=== PATIENT | male | born 1935 | race Caucasian/White ===

== ENCOUNTER 2020-01-20 10:45 | Inpatient (IN) | payer MEDICARE, OTHER ==
[2020-01-20 11:42] LABS: #Basophils 0.1 thou/uL (0.0-0.2); #Lymphocytes 1.2 thou/uL (1.20-3.40); #Monocytes 0.9 thou/uL (0.11-0.59); #Neutrophils 7.6 thou/uL (1.40-6.50); %Basophils 0.5 % (0.0-1.0); %Eosinophils 0.3 % (0.0-10.0); %Lymphocytes 12.4 % (21.0-51.0); %Neutrophils 77.8 % (42.0-75.0); Hemoglobin 7.4 g/dL (14.0-18.0); Mean Corpuscular HGB CONC 33.2 g/dL (32.0-36.0); Mean Corpuscular Hemoglobin 33.8 pg (27.0-31.0); Mean Platelet Volume 8.8 fL (7.4-10.4); Platelet Count 147 thou/uL (130-400); RBC Distribution Width 12.4 % (11.5-14.5); Red Blood Cell (RBC) Count 2.18 mill/uL (4.70-6.10); White Blood Cell (WBC) Count 9.7 thou/uL (4.8-10.8)
[2020-01-20 11:59] LABS: ALT (SGPT) 9 U/L (8-55); AST (SGOT) 13 U/L (5-34); Albumin 3.9 g/dL (3.4-4.8); Alkaline Phosphatase 100 U/L (40-110); Anion Gap 13 mmol/L (10-20); BUN (Urea Nitrogen) 32 mg/dL (8.4-25.7); Bilirubin, Total 0.6 mg/dL (0.2-1.2); Calc. Creatinine Clearance 0 mL/min (70-130); Calcium 9.3 mg/dL (7.8-10.44); Carbon Dioxide 33 mmol/L (23-31); Chloride 96 mmol/L (98-107); Estimated GFR-MDRD 11; Globulin 2.6 g/dL (2.4-3.5); Glucose 180 mg/dL (83-110); Potassium 4.1 mmol/L (3.5-5.1); Protein, Total 6.5 g/dL (5.8-8.1); Sodium 138 mmol/L (136-145)
[2020-01-20 12:17] LABS: CKMB 1.2 ng/mL (0-6.6)
[2020-01-20] MEDS ORDERED: Iopamidol-370 76% 500 ML 1 ML ONE (12:20)
--- NOTE | 2020-01-20 12:21 | RAD ---
RADIOGRAPH CHEST 1 VIEW: DATE: 01/20/2020 HISTORY: 85-year-old male with generalized weakness COMPARISON: None FINDINGS: The thoracic aorta is tortuous and ectatic. There is no evidence of pulmonary edema, or pneumothorax. There is dense opacification of right lower lung zone, and partial opacification of right midlung zone. Visualized portions of left lung show no gross consolidation IMPRESSION: 1) opacification of lower third to half of right lung colbert. 2) ectasia of thoracic aorta.
[2020-01-20 12:39] LABS: Bilirubin Negative (Negative); Blood, Urine 3+ (Negative); Clarity Turbid (Clear); Glucose, Urine (Dipstick) Normal (Negative); Ketone, Urine Negative (Negative); Leukocyte Negative Leu/uL (Negative); Nitrite Negative (Negative); Protein, Urine (Dipstick) 300 mg/dL (Neg-Trace); RBC/HPF Greater than 50 HPF (0-3); Specific Gravity, Urine 1.007 (1.002-1.036); Squamous Epithelial None Seen HPF (0-3); Urobilinogen Normal mg/dL (Less than 2)
[2020-01-20 12:40] LABS: Bacteria/HPF 1+ HPF (None Seen)
--- NOTE | 2020-01-20 12:46 | CT ---
EXAM: Abdomen and pelvic CT scan with contrast: HISTORY: Diffuse abdominal pain and cramping, dizziness and weakness COMPARISON: None FINDINGS: Lungs:Left pleural effusion, [id number]. Bilateral mostly linear parenchymal changes in the mid and lower lung zones. Trace pericardial fluid. Liver: Unremarkable. Gallbladder:Unremarkable. Common bile duct:Normal Pancreas:Unremarkable Spleen:Unremarkable. Adrenal glands:Unremarkable. Kidneys:No evidence for right nephrectomy with evidence for probable fat necrosis within the right re nal fossa region. Very markedly abnormal left kidney with what appears to be a very small kidney with numerous small cy sts without hydronephrosis. There is a very large abnormal focus of hemorrhage around the kidney evidence for extensive subcapsular and pericapsular hematoma as well as hemorrhage extending into the surrounding pararenal space and retroperitoneum as well as some minimal free intraperitoneal fluid including around the edge of the liver. This is evidence for very extensive acute hemorrhage. No evidence for bowel obstruction. Aorta:No evidence for aneurysm. Spine:No significant acute process. No CT evidence for acute appendicitis. The urinary bladder is unremarkable. Reproductive system:Unremarkable as visualized. Hernias:Bilateral inguinal and umbilical fat-containing hernias. Artifact from total right hip replacement lowers sensitivity for evaluation in the pelvis. No abscess, adenopathy, or abnormal fluid collection within the abdomen or pelvis. IMPRESSION: Very extensive acute left renal hemorrhage with a very large subcapsular/pericapsular hematoma extens kimberly acute appearing hemorrhage extending into the pararenal space and surrounding retroperitoneum with some free fluid. Status post right nephrectomy. Small left pleural effusion and patchy bilateral linear parenchymal changes. Findings were discussed with Dr. Harris at 12:50 PM CODE CR
[2020-01-20 13:28] LABS: INR-International Normal Ratio 1.2; PTT 31.2 sec (22.9-36.1); Prothrombin Time 15.4 sec (12.0-14.7)
[2020-01-20] MEDS ORDERED: Tranexamic Acid 1,000 MG in Sodium Chloride 0.9% 100 ML IVPB SCH (14:00)
[2020-01-20] MEDS ORDERED: Tranexamic Acid 1,000 MG in Sodium Chloride 0.9% 250 ML 250 ML IVPB SCH (14:00)
[2020-01-20] MEDS ORDERED: HumaLOG 300 UNITS/3 ML VIAL SC PRN (14:56)
[2020-01-20] MEDS ORDERED: Dextrose 5% in Water 1,000 ML IV PRN (15:00)
[2020-01-20] MEDS ORDERED: Dextrose 50% Abboject 50 ML SYRINGE SLOW IVP PRN (15:00)
[2020-01-20] MEDS ORDERED: hydrALAZINE 20 MG/ML VIAL SLOW IVP PRN (15:01)
[2020-01-20] MEDS ORDERED: Metoclopramide HCl 10 MG/2 ML VIAL IVP PRN (15:03)
[2020-01-20 15:38] LABS: Hemoglobin 8.2 g/dL (14.0-18.0)
--- NOTE | 2020-01-20 15:49 | HP ---
CHIEF COMPLAINT: Weakness, dizziness. HISTORY OF PRESENT ILLNESS: This is an 85-year-old male with history of end- stage renal disease, on hemodialysis; hypertension; hypothyroid; dyslipidemia; who presents to the emergency room with the complaint of generalized weakness, dizziness, and pain in his abdomen. The patient reports the onset last night, no provoking or relieving factors, associated with some nausea. He states he feels like there was a band around his abdomen, worse on the left side in the left flank and worse with movement. It is improved with rest. The pain rated 5/10 in intensity, no radiation outside of the abdomen/back. He denies any prior history. When trying to walk, the patient does complain of dizziness. Due to the persistence of symptoms, the patient presented to the emergency room. The patient denies any fevers or chills, denies any vomiting, coughing. He also denies any change in urine and produces about a quart of urine per day. He reports that recently his blood pressure medications were increased by his clinical courier because his blood pressures have been running in the 160s. No other recent medication changes. In the ER pt was diagnosed with renal and subcapsular hemorrhage. 2 units prbc transfusion initiated and tranexamic acid infusion. Airframe And Powerplant Technician (Dr. Kang), Urologist (Dr. Coppola) and Hospitalist called for care. PAST MEDICAL HISTORY: 1. End-stage renal disease, on hemodialysis. 2. Hypertension. 3. Dyslipidemia. 4. Hypothyroidism. 5. Diabetes mellitus. 6. Gout. 7. Neuropathy. 8. Chronic leg pain PAST SURGICAL HISTORY: 1. Right nephrectomy. 2. Inguinal hernia repair. 3. Hiatal hernia repair. SOCIAL HISTORY: The patient is . His is his surrogate decision maker. He is a full code. No alcohol. FAMILY HISTORY: Significant for mother who had multiple myeloma and father who had Simi granulomatosis. MEDICATIONS: Reconciled with the list provided by the patient. 1. Allopurinol 100 mg daily. 2. Amlodipine 10 mg daily. 3. Aspirin 81 mg daily. 4. Vitamin B complex daily. 5. Docusate sodium 100 mg two tablets twice a day. 6. Glipizide 5 mg one-half tablet twice a day with meals. 7. Hydralazine 50 mg t.i.d. 8. Hydroxyzine 10 mg b.i.d. 9. Levothyroxine 50 mcg daily. 10. Losartan 100 mg daily. 11. Meloxicam 15 mg daily. 12. Pregabalin 75 mg daily. 13. vitamin daily. 14. Simvastatin 20 mg at bedtime. 15. Velphoro 500 mg one tablet 3 times a day with meals. 16. Vitamin C 500 mg daily. ALLERGIES: TO JUAN ANTONIO INHIBITORS. REVIEW OF SYSTEMS: Positive for nausea. Negative for fevers, chills, cough, change in urine. All remaining review of systems is reviewed and negative. PHYSICAL EXAMINATION: VITAL SIGNS: Blood pressure 109/60, pulse 64, respirations 18, sat 95% on room air, and temperature 99.2. GENERAL: Awake, alert, responsive, in no apparent distress. Able to speak in full sentences. HEENT: No scleral icterus. Oral mucosa is pink and moist. NECK: Supple, nontender. LYMPHATICS: No palpable cervical or supraclavicular lymphadenopathy. LUNGS: Decreased breath sounds on the right side. No audible wheezing, rhonchi, or rales. HEART: Normal S1 and S2. Regular rate and rhythm. No significant murmurs. ABDOMEN: Soft. Present bowel sounds. No tenderness to palpation anteriorly. No rebound or guarding. EXTREMITIES: No clubbing, cyanosis, or edema. VASCULAR: 2+ dorsalis pedis pulses. SKIN: No visible rashes. Pale appearing. PSYCHIATRIC: Appears euthymic. NEUROLOGIC: No focal deficits. LABORATORY DATA: Personally reviewed. CBC; 9.7, 7.4, 22.3, 147. INR 1.2. Chemistry; 138, 4.1, 96, 33, 32, 5.23, 180. T-bilirubin 0.6, AST 13, ALT 9, alkaline phosphatase 100, total protein 6.5, albumin 3.9. Troponin 0.029. Lipase 81. Urine; present protein, 3+ blood, greater than 50 red blood cells, 7 to 10 white blood cells. Fecal occult is positive. EKG is personally reviewed, sinus rhythm, normal axis, prolonged UT interval of 330, QT corrected of 460, no ST changes. Chest x-ray is personally reviewed, opacification on the right side, no prior study to compare to, and ectasia of the thoracic aorta. CT abdomen and pelvis personally reviewed. Extensive acute left renal hemorrhage with a very large subcapsular, pericapsular hematoma, extensive acute appearing hemorrhage extending into the pararenal space and surrounding retroperitoneum and free fluid. Small left pleural effusion and patchy linear parenchymal changes. IMPRESSION: 1. Hemorrhage within and around the left kidney, described as extensive on imaging in a patient who is on daily aspirin as well as NSAID. 2. Anemia, likely acute on chronic; however, no prior hemoglobin for comparison. 3. Abnormal chest xray (right sided opacification) of unknown significance. The patient is asymptomatic and not requiring oxygen. 3. End-stage renal disease, on hemodialysis. 4. History of hypertension. 5. Hypothyroidism. 6. Gout. 7. Dyslipidemia. 8. Diabetes mellitus type 2. 9. Mildly prolonged QT interval. PLAN: 1. Admission to the ICU with at least 2 midnight anticipated stay. 2. Consultation with Critical Care, Nephrology, Urology. 3. Nephrology, Dr. Kang, to arrange hemodialysis while here. 4. Urology to evaluate, recommend monitoring. 5. 2 units have been ordered for the patient. Given concern for extensive bleeding, we will monitor with every 4-hour hemoglobin and hematocrit. The patient has been started on tranexamic acid IV. 6. Holding all of his home medications, n.p.o. status. 7. Uncertain significance of abnormal chest xray - monitor for oxygen requirement or change in respiratory status. 8. Hydralazine p.r.n. for significantly elevated blood pressures. 9. Holding on IV fluids given that the patient will receive fluid through transfusion, and he is a dialysis patient. 10. Metoclopramide IV p.r.n. for nausea. 11. Monitoring his blood sugars and as needed insulin. 12. DVT prophylaxis with pneumatic compression devices. 13. GI prophylaxis. We will hold on this for now. Add as needed. 14. Code status is full. Surrogate decision maker is the patient's . Reviewed the plan of care with the patient and his . No questions or further needs at the end of evaluation. The patient is at high risk given age, comorbidities, and current presentation. Job ID: [id number] [facility]
[2020-01-20 17:26] LABS: SARS-CoV-2 NAA Rapid Test Not Detected (NotDetected)
[2020-01-20 19:23] LABS: Hemoglobin 9.6 g/dL (14.0-18.0)
--- NOTE | 2020-01-20 19:28 | CON ---
DATE OF CONSULTATION: 01/20/20 HISTORY OF PRESENT ILLNESS: Mr. Bonilla is an 85-year-old white male with ESRD - maintenance hemodialysis and was admitted due to abdominal pain with associated weakness and dizziness. A CT scan of the abdomen was done, which showed findings of an extensive acute left renal hemorrhage with a large subcapsular/pericapsular hematoma extensive in nature extending to the pararenal space. Of note, the patient was found to be status post nephrectomy. REVIEW OF SYSTEMS: Positive for dizziness. Positive for abdominal pain. No nausea. No vomiting. No syncopal episode. No fever or chills. No hematochezia. No melena. No hematemesis. No gross hematuria. No dysuria. No urinary frequency. No fever or chills. No sore throat. No back pain. No joint pains. HOME MEDICATIONS: Includes; 1. Allopurinol 100 mg once a day. 2. Amlodipine 10 mg daily. 3. Aspirin 81 mg tablet daily. 4. Vitamin B complex daily. 5. Colace 100 mg b.i.d. 6. Glipizide 5 mg one-half tablet twice a day. 7. Hydralazine 50 mg t.i.d. 8. Hydroxyzine 10 mg b.i.d. 9. Levothyroxine 50 mcg daily. 10. Losartan 100 mg daily. 11. Meloxicam 15 mg once a day. 12. Lyrica 75 mg once a day. 13. vitamin daily. 14. Simvastatin 20 mg at bedtime. 15. Velphoro 500 mg t.i.d. with meals. 16. Vitamin C 500 mg once a day. PAST MEDICAL HISTORY: 1. ESRD - on maintenance hemodialysis. 2. Longstanding hypertension. 3. Type 2 diabetes mellitus. 4. Hypothyroidism. 5. Chronic pruritus. 6. DJD. 7. Neuropathy. 8. Hyperlipidemia. 9. Hyperphosphatemia. 10. Hypothyroidism. 11. Gout. PAST SURGICAL HISTORY: Status post right nephrectomy for renal cancer, status post inguinal hernia repair, status post hiatal hernia repair, status post cuffed dialysis catheter placement, status post AV fistula, and status post PD catheter placement with subsequent removal. SOCIAL HISTORY: The patient lives in [facility]. . Sedentary lifestyle. Currently, no smoking or alcohol intake. Status post blood transfusion. No IV drug abuse. FAMILY HISTORY: No family history of ESRD. ALLERGIES: JUAN ANTONIO INHIBITORS. TRAUMA: None. IMMUNIZATIONS: Up-to-date. HOSPITALIZATIONS: Please see past medical history. PHYSICAL EXAMINATION: VITAL SIGNS: Blood pressure is noted at 134/89 and heart rate 70. GENERAL: Awake, alert, comfortable, not in overt distress. SKIN: Adequate turgor. HEENT: Slightly pale conjunctivae. Anicteric sclerae. NECK: No neck mass. No carotid bruits. No JVD. CHEST: No deformities. LUNGS: Clear breath sounds. No wheezing. No crackles. HEART: Normal sinus rhythm. No murmur. No gallops. No rubs. ABDOMEN: Globular, soft, and nontender. No masses. EXTREMITIES: No edema. No deformities. NEUROLOGIC: Moving all extremities. No tremors. No asterixis. No ataxia. LABORATORY DATA: Laboratories of January 20, 2020, white count 9.7 and hemoglobin 7.4. Sodium 138, potassium 4.1, chloride 96, carbon dioxide 33, BUN 32, creatinine 5.23, glucose 180, calcium 9.3, AST 13, ALT 9, albumin 3.9, and lipase 81. CT scan of the abdomen and pelvis showed left kidney shows extensive acute left renal hemorrhage with large subcapsular empiric capsular hematoma. January 20, 2020, chest x-ray shows opacification of the lower third to half of the right lung colbert, ectasia of the thoracic aorta. ASSESSMENT AND PLAN: 1. Left renal hemorrhage - Urology consult has been done for further evaluation. 2. End-stage renal disease, stable. We will continue current 3 times a week hemodialysis. He is scheduled for hemodialysis tomorrow. Due to the recent left renal hemorrhage, no heparin will be used with the current dialysis. 3. Left opacification of the lower third and half of the right lung colbert - the patient is clinically asymptomatic. He may eventually need a CAT scan of the chest. 4. Anemia, p.r.n. blood transfusion. Resume Epogen 7500 units subcu every week. Job ID: [id number] [facility]
[2020-01-20] MEDS: EPOETIN ALFA-EPBX (ESRD) 4,000 UNIT/ML VIAL SC SCH (21:14)
[2020-01-20 23:05] LABS: Hemoglobin 8.9 g/dL (14.0-18.0)
--- NOTE | 2020-01-21 00:05 | CON ---
DATE OF CONSULTATION: 01/20/2020 REASON FOR CONSULTATION: 1. Solitary left kidney with perinephric hemorrhage. 2. History of left-sided renal cancer, status post radical nephrectomy at [facility] about 2-1/2 years ago. 3. End-stage renal disease, on hemodialysis. HISTORY OF PRESENT ILLNESS: Mr. Siva Bonilla is a very pleasant 85-year-old white male patient formally of [facility] and recently of Dr. Chris Funes, who presents today with a complaint of left-sided flank pain with onset of about 6 p.m. on 01/19/2020. This progressively increased in pain level over time. Mr. Bonilla is on hemodialysis. Dr. Kang is his timber sprinkler. The patient has had a number of chronic pain issues associated with his right leg and has seen a number of care providers with regard to that. He has been taking meloxicam at home for his pain symptoms. The patient also has diabetes and hypertension as potential contributors to his bleed. The patient reports that he has not seen gross blood per urine. He does report that he makes about 5-6 voids per day with his left functioning kidney. The patient's only complaint at this time is of pain. PAST MEDICAL HISTORY: 1. End-stage renal disease, currently on hemodialysis with Dr. Kang. 2. Hypertension. 3. Dyslipidemia. 4. Hypothyroidism. 5. Diabetes mellitus. 6. Gout. 7. Neuropathy. 8. History of malignancy of the right kidney, status post right radical nephrectomy at [facility] approximately 2-1/2 years ago. PAST SURGICAL HISTORY: 1. Right radical nephrectomy. 2. History of inguinal hernia repair. 3. Hiatal hernia repair. SOCIAL HISTORY: The patient is and his acts as partial historian for him. The patient is full code. No reports of smoking or alcohol use. No other substance abuse issues, although the patient has been cared for by chronic pain specialist in the past. FAMILY MEDICAL HISTORY: Notable for multiple myeloma and Simi granulomatosis in the patient's father. OUTPATIENT MEDICATION LIST: Includes the following, 1. Allopurinol 100 mg p.o. daily. 2. Amlodipine 10 mg per day. 3. Aspirin 81 mg per day. 4. Vitamin B complex daily. 5. Docusate sodium 100 mg twice daily. 6. Glipizide 5 mg 1/2 tablet twice daily with meals. 7. Hydralazine 50 mg t.i.d. 8. Hydroxyzine 10 mg p.o. b.i.d. 9. Levothyroxine 50 mcg p.o. daily. 10. Losartan 100 mg per day. 11. Meloxicam 15 mg daily. 12. Pregabalin 75 mg daily. 13. vitamins daily. 14. Simvastatin 20 mg at bedtime. 15. Velphoro 500 mg one tablet three times daily with meals. 16. Vitamin C 500 mg daily. ALLERGIES: REPORTEDLY TO JUAN ANTONIO INHIBITORS. REVIEW OF SYSTEMS: CONSTITUTIONAL: No complaints of fever or chills. NEUROLOGIC: Positive for left-sided flank pain. GASTROINTESTINAL: The patient has constipation, for which he takes docusate sodium on an ordinary basis and reports some nausea symptoms with his current presentation. GENITOURINARY: The patient reports voiding 5-6 voids per day. Does not report significant obstructive voiding symptoms. Denies gross hematuria. NEUROLOGIC: The patient reports chronic right-sided flank pain symptoms. Review of systems is otherwise negative x12 systems. PHYSICAL EXAMINATION: VITAL SIGNS: Blood pressure is 144/80, pulse is 64, respiratory rate is about 20 to my exam. The patient is currently afebrile. GENERAL: This is an awake, alert white male, in no apparent distress. He is a good historian. Appears to be of above-average intelligence. HEAD, EYES, EARS, NOSE, AND THROAT: Extraocular movements are intact. Sclerae are anicteric. Oropharynx is not examined. NECK: Supple. No supraclavicular or cervical lymphadenopathy. LUNGS: Clear bilaterally. There is no wheezing. CARDIAC: Regular rate and rhythm. ABDOMEN: Soft, obese, and nontender. There is no flank tenderness on either side to gross exam. GENITOURINARY: Phallus is uncircumcised. Retraction of foreskin finds no lesions beneath the foreskin. He is not catheterized at the present time. Testes are benign. Digital rectal examination is not performed. EXTREMITIES: Appear within normal limits. There is no clubbing, cyanosis, or edema. The patient's right upper extremity has an AV fistula site, which is patent and there is palpable thrill present. LABORATORY STUDIES: The patient's white count is 9.7, hemoglobin is 7.4 with hematocrit of 22.3, there is 77.8% neutrophils. Serum chemistries show sodium 138, potassium 4.1, chloride 96, carbon dioxide 33, blood urea nitrogen of 32, creatinine of 5.32, glucose is 180. Lipase is elevated at 81. Troponin is 0.029. RADIOLOGIC STUDIES: CT scan of the abdomen and pelvis was obtained on 01/20/2020. Please see the dictated report to my review of this study. The patient has no evidence of a right kidney status post right radical nephrectomy. The patient's renal parenchyma is compressed by a subcapsular hematoma. There also appears to be a fair amount of stranding outside of the kidney suggesting there is possibly some extravasation. 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 The patient does not have any specific recognition of any type of diagnosis involving the left kidney. The patient has a prosthetic right hip, source of his pain. ASSESSMENT: This is a subcapsular hemorrhage in the patient's left kidney, possibly with some extravasation. The patient is ordinarily taking daily aspirin, NSAIDs (meloxicam) and is on hemodialysis. He also suffers from hypertension, diabetes, and elevated cholesterol, which may contribute to a spontaneous hemorrhage. The patient does have a history of previous malignancy in his right kidney and did undergo nephrectomy for that. It is unclear if he has had previously imaged cysts. The patient is ordinarily followed by Dr. Funes and previously was followed by [facility] here in [facility] prior to the longterm. PLAN: The patient will be best served by observation as an initial protocol with pain medications. I would strictly recommend avoidance of any anticoagulants including modification of the patient's current hemodialysis regimen, avoidance of NSAIDs of any sort and any other agents, which may interfere with normal clotting. The patient will be suitable for bedrest for a few days. Pain with this type of problem is ordinarily managed with oral narcotics such as Wilcox. Usually a few pills per day are necessary at the beginning. Usually spontaneous resolution of the subcapsular bleed is evident by about 3 months' time. I discussed with the patient if we operated on him acutely, he most likely will lose any of the kidney function that he has on that side; although he makes low quality urine, he does make 5-6 voids per day and this would result in a significant modification of his lifestyle. At the present time, I do not recommend acute interventions for this patient. I believe interval CT scan imaging may be of use. At first, I probably would recommend noncontrast CT scan be performed again on Monday to follow the size and total amount of the bleed. If there is question or concerns regarding ongoing bleeding, a contrast study would be required. At the present time, I believe it could be managed conservatively. I will discuss the patient's findings with his primary urology attending, Dr. Funes. Over 70 minutes of initial consultation, evaluation, assessment time was spent in the assessment of this patient today. Job ID: [id number]
[2020-01-21 04:04] LABS: Anion Gap 12 mmol/L (10-20); BUN (Urea Nitrogen) 42 mg/dL (8.4-25.7); Calc. Creatinine Clearance 12 mL/min (70-130); Calcium 8.9 mg/dL (7.8-10.44); Carbon Dioxide 31 mmol/L (23-31); Chloride 99 mmol/L (98-107); Estimated GFR-MDRD 9; Glucose 105 mg/dL (83-110); Sodium 138 mmol/L (136-145)
[2020-01-21 06:53] LABS: #Eosinphils 0.1 thou/uL (0.0-0.7); #Lymphocytes 1.4 thou/uL (1.20-3.40); #Monocytes 0.8 thou/uL (0.11-0.59); #Neutrophils 4.7 thou/uL (1.40-6.50); %Basophils 0.5 % (0.0-1.0); %Lymphocytes 19.9 % (21.0-51.0); %Monocytes 11.8 % (0.0-10.0); %Neutrophils 65.8 % (42.0-75.0); Hemoglobin 8.1 g/dL (14.0-18.0); Mean Corpuscular HGB CONC 34.9 g/dL (32.0-36.0); Mean Corpuscular Hemoglobin 33.5 pg (27.0-31.0); Mean Corpuscular Volume 96.2 fL (78.0-98.0); Mean Platelet Volume 9.1 fL (7.4-10.4); Platelet Count 116 thou/uL (130-400); Platelet Morphology Comment Appears Decreased; Red Blood Cell (RBC) Count 2.42 mill/uL (4.70-6.10); White Blood Cell (WBC) Count 7.1 thou/uL (4.8-10.8)
--- NOTE | 2020-01-21 08:41 | CON ---
DATE OF CONSULTATION: 01/21/2020 REASON FOR CONSULTATION: ICU stay. This encompassed 50 minutes of time, of that time, greater than 50% spent with the patient and/or the patient's unit in the hospital. HISTORY OF THE PRESENT ILLNESS: This is an 85-year-old male who has been found to have a spontaneous pericapsular hemorrhage around the left kidney. He presented with pain. There was no fall or inciting event has been known. He has received some blood. No surgery is planned at the current time. He has no acute complaints at this time. He is on no vasopressors and has had no hypotension in the last several hours. PAST MEDICAL HISTORY: 1. End-stage renal disease, requiring hemodialysis. 2. Right nephrectomy for some type of kidney lesion, hypertension, hyperlipidemia, hypothyroidism, diabetes mellitus, gout, neuropathy, chronic leg pain, inguinal hernia repair, and hiatal hernia repair. MEDICATIONS: Prior to admission: 1. Allopurinol. 2. Amlodipine. 3. Aspirin. 4. Vitamin B complex. 5. Docusate. 6. Glipizide. 7. Hydralazine. 8. Hydroxyzine. 9. Levothyroxine. 10. Losartan. 11. Meloxicam. 12. Pregabalin. 13. vitamin. 14. Simvastatin. 15. Vitamin C. SOCIAL HISTORY: He is . Does not smoke. Does not consume alcohol. FAMILY MEDICAL HISTORY: Remarkable for mother had multiple myeloma and father had Simi's. ALLERGIES: JUAN ANTONIO INHIBITORS. REVIEW OF SYSTEMS: Twelve-point review of systems is otherwise negative. PHYSICAL EXAMINATION: VITAL SIGNS: Pulse 62, blood pressure 138/57, O2 saturation 93%, respiratory rate 19, and temperature 97.8. GENERAL: He is awake, alert, in no distress. HEENT: Unremarkable. NECK: No adenopathy, JVD, or bruits. LUNGS: Clear without wheezing or rhonchi. CARDIOVASCULAR: S1 and S2. Regular without audible murmur. ABDOMEN: Soft. There is some bulging in the left flank. Some tenderness when palpating deeply in left flank. EXTREMITIES: No clubbing, cyanosis, or edema. LABORATORY DATA: White blood cell count 7.1, hemoglobin 8.1, hematocrit 23.3, and platelet count 116. Sodium 138, potassium 4, chloride 99, CO2 of 31, BUN 42, creatinine 6.2, and glucose 105. ASSESSMENT: 1. Capsular hematoma, left kidney. 2. End-stage renal disease, requiring dialysis. 3. Diabetes mellitus. 4. Anemia due to blood loss. PLAN: The patient's blood pressure and hemoglobin are stable. In my opinion, we transfer to the floor. He can go ahead and start a diet. Job ID: [id number]
--- NOTE | 2020-01-21 08:49 | PRG ---
DATE OF SERVICE: 01/21/2020 SUBJECTIVE: Mr. Bonilla is an 85-year-old white male with known history of ESRD-maintenance hemodialysis, status post right nephrectomy and admitted for left renal hemorrhage. He has been evaluated by Urology and the feeling is that he can be managed conservatively without any surgical intervention. He is receiving p.r.n. blood transfusion. We are following him up for his maintenance hemodialysis. No new complaints today. He tells me he is feeling better this morning. OBJECTIVE: VITAL SIGNS: Blood pressure 128/62, heart rate 62, respiratory rate 19, and O2 saturation 95%. GENERAL: The patient is awake, comfortable, not in overt distress. SKIN: Adequate turgor. HEENT: He has a slightly pale conjunctivae. Anicteric sclerae. NECK: No neck mass. No carotid bruits. No JVD. CHEST: No deformities. LUNGS: Clear breath sounds. No wheezing. No crackles. HEART: Normal sinus rhythm. No murmurs. No gallops. No rubs. ABDOMEN: Globular, soft, and nontender. No masses. EXTREMITIES: No edema. No deformities. MEDICATIONS: Medications of January 21, 2020, were reviewed. LABORATORY DATA: Laboratories of January 21, 2020; white count 7.1, hemoglobin 8.1, sodium 138, potassium 4, chloride 99, carbon dioxide 31, BUN 42, creatinine 6.22, glucose 105, and calcium 8.9. ASSESSMENT AND PLAN: 1. End-stage renal disease due to the recent renal bleed. The patient will be undergoing hemodialysis without any heparin. P.r.n. blood transfusion. Continue current Epogen regimen with this patient-we have ordered 7500 units subcu q.7 days. 2. Left renal hemorrhage-Urology is following. Initial recommendation is observation. Case discussed with Dr. Funes. If the bleeding is persistent, he may be a candidate for a renal infarction to minimize further invasive procedure with this patient. The patient is clinically asymptomatic this morning. Job ID: [id number]
[2020-01-21 09:49] LABS: Hemoglobin 8.1 g/dL (14.0-18.0)
--- NOTE | 2020-01-21 12:12 | CON ---
DATE OF CONSULTATION: HISTORY OF PRESENT ILLNESS: This is an 85-year-old white male, who is a former patient of one of the Dr. Sheth's. I think I have been seeing him since 2017. I have to look at my records when I get to my office later today. He has a history of having a renal cell carcinoma, I do not know anything about it stage. 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 He had a radical nephrectomy done, I think, at [facility]. He started having some abdominal pain, worse on the left side on Monday evening, became worse, yesterday it became worsened. I was in the OR, they called my office, I could not get him into the office because me in the OR. They also called his family doctor who was out of town, so he went to the ER. In the ER, he was found to have a low hematocrit. CAT scan was done that was done I think with contrast. It shows a small left kidney with some renal cysts on it and it shows a [id number] left subcapsular hematoma with some stranding of the perirenal space. I do not see any stones or obstruction. The nurses report a little bit of blood-tinged urine today, but the patient does not report any blood-tinged urine. He received 2 units of blood yesterday. The last was around 5 in the afternoon and his hemoglobin posttransfusion was 9.6 and then 8.9, and then about 5 or 6 hours ago, 8.1. He is currently going to have another one drawn. He is supposed to dialyze today. He has been end-stage renal disease, on hemodialysis for, I guess, 2 [address] Kang sees him. He is going to dialyze him without heparin. He has been taking some NSAIDs and he has also been taking some aspirin. He actually feels pretty well in terms of the pain right now. He has taken some liquids. He has not eaten any solid food yet. PAST MEDICAL HISTORY: He has had a right radical nephrectomy. He has had hernia repairs. He has end-stage renal disease, hypertension, hyperlipidemia, diabetes, and gout. He also has some chronic pain issues. MEDICATIONS: Well documented. ALLERGIES: HE HAS ALLERGIES TO JUAN [employer]TON[employer] INHIBITORS. LABORATORY DATA: His creatinine is elevated as expected with the end-stage renal. His platelet count is still over 100, white count is normal. PHYSICAL EXAMINATION: His abdomen is soft. There is some left-sided tenderness on deep palpation. The right side is nontender. There is no rebound, no guarding. He is still making urine and as mentioned, the nurse reported that the voided urine today was blood tinged. IMPRESSION: Left spontaneous renal bleed in a patient in end-stage renal disease with a small left kidney with some renal cysts on contrast study yesterday. We will check his hemoglobin level this morning. He will be dialyzed. We will keep him just on some clear liquids today and bedrest. Keep PlexiPulses on him. Avoid blood thinners, nonsteroidals, and aspirin. I think we will kind of follow the hemoglobin now and probably not redo a CAT scan unless the hemoglobin is significantly changing. We will try to get the hemoglobin done before dialysis, so if he needs more blood, he could receive it during dialysis. I have discussed this with Dr. Coppola as well as with Dr. Kang. Should he acutely rebleed, we may look at infarcting the kidneys. This would probably be easier tolerated by the patient than open nephrectomy for this. Otherwise, we will end up following this to be sure there is nothing that would suggest a renal malignancy on this side, initial scan shows really just some small renal cysts. I will follow along with you. Job ID: [id number]
--- NOTE | 2020-01-21 13:07 | PDOC.HOSPP ---
- Subjective Encounter Date: 01/21/20 Encounter Time: 11:45 Subjective: Patient up in bed no complaints. - Objective Vital Signs & Weight: Vital Signs (12 hours) Temp Pulse Ox 01/21/20 12:00 98.6 F 01/21/20 07:44 94 L 01/21/20 07:00 98.6 F 01/21/20 04:00 97.8 F Weight Weight 176 lb 9.444 oz Most Recent Monitor Data Heart Rate from ECG 59 NIBP 142/66 NIBP BP-Mean 91 Respiration from ECG 23 SpO2 94 I&O: 01/20/20 01/21/20 01/22/20 06:59 06:59 06:59 Intake Total 338 400 Output Total 0 100 Balance 338 300 Result Diagrams: 01/21/20 09:36 01/21/20 03:20 Additional Labs: Accuchecks 01/20/20 22:57 POC Glucose 113 H Hospitalist ROS - Review of Systems Cardiovascular: denies: chest pain, palpitations, orthopnea, paroxysmal noc. dyspnea, edema, light headedness, other Gastrointestinal: denies: nausea, vomiting, abdominal pain, diarrhea, constipation, melena, hematochezia, other Genitourinary: denies: dysuria, frequency, incontinence, hematuria, retention, other - Medication Medications: Active Medications Generic Name Dose Route Start Last Admin Trade Name Freq PRN Reason Stop Dose Admin Epoetin Geraldo-epbx 7,500 unit 01/20/20 16:30 01/20/20 21:14 Epoetin Geraldo-Epbx (Esrd) 4,000 Unit/Ml Vial SC 7,500 unit Q7D DEIDRE Administration - Exam Neck: negative: supple, symmetric, no JVD, no thyromegaly, no lymphadenopathy, no carotid bruit, JVD Heart: negative: RRR, no murmur, no gallops, no rubs, normal peripheral pulses, irregular, diminshed peripheral pulses, murmur present, II/IV, III/IV Respiratory: negative: CTAB, no wheezes, no rales, no ronchi, normal chest expansion, no tachypnea, normal percussion, rales, rhonchi, tachypneic, wheezes Gastrointestinal: negative: soft, non-tender, non-distended, normal bowel sounds, no palpable masses, no hepatomegaly, no splenomegaly, no bruit, no guarding, no rigidity, tender to palpation, distended, diminished bowl sounds, voluntary guarding Hosp A/P (1) Renal hemorrhage, left Code(s): N28.89 - OTHER SPECIFIED DISORDERS OF KIDNEY AND URETER Status: Acute (2) Acute blood loss anemia Code(s): D62 - ACUTE POSTHEMORRHAGIC ANEMIA Status: Acute (3) End stage renal disease on dialysis Code(s): N18.6 - END STAGE RENAL DISEASE; Z99.2 - DEPENDENCE ON RENAL DIALYSIS Status: Acute (4) Renal cell carcinoma of right kidney Code(s): C64.1 - MALIGNANT NEOPLASM OF RIGHT KIDNEY, EXCEPT RENAL PELVIS Status: Acute - Plan Status post 2 units of PRBC transfusion patient doing well. H&H stable. Patient was on meloxicam has been advised to stop taking it. Patient has some right thigh pain and has been seeing neurology as outpatient in [place]. We will start patient on couple of his blood pressure medications.
[2020-01-21 13:52] VITALS: BMI 24.6
[2020-01-21] MEDS: hydrALAZINE 25 MG TAB PO SCH ×2 (15:10→20:24)
[2020-01-21 18:58] LABS: Hemoglobin 8.4 g/dL (14.0-18.0)
[2020-01-21] MEDS: Atorvastatin Calcium 10 MG TAB PO SCH (20:24)
[2020-01-21] MEDS: hydrOXYzine 10 MG TAB PO SCH (20:27)
[2020-01-22] MEDS: Levothyroxine Sodium 50 MCG TAB PO SCH (06:28)
[2020-01-22] MEDS: Multivit, Therapeutic 1 TAB PO SCH (07:40)
[2020-01-22] MEDS: Allopurinol 100 MG TAB PO SCH (07:40)
[2020-01-22] MEDS: hydrOXYzine 10 MG TAB PO SCH ×2 (08:54→21:22)
[2020-01-22] MEDS: Stress 600 With Zinc 1 TAB PO SCH (08:54)
--- NOTE | 2020-01-22 09:41 | PRG ---
DATE OF SERVICE: 01/22/2020 SUBJECTIVE: Mr. Bonilla is an 85-year-old white male with known history of ESRD - on maintenance hemodialysis and was admitted for a left renal bleed. At that time, the patient was given 1 unit of packed RBC for his symptomatic anemia. He has also been seen by Urology. The patient had a left spontaneous renal bleed. The plan is to do a conservative management and observe the patient. As per suggestion by Urology, should he have recurrence of the renal bleed, then may need to consider infarcting this kidney rather than doing an open nephrectomy. We are following up this patient for his maintenance hemodialysis. He underwent hemodialysis yesterday without difficulty. We are currently using no heparin due to the recent renal bleed. No complaints of chest pain or shortness of breath. OBJECTIVE: VITAL SIGNS: Blood pressure is 116/52, heart rate 68, respiratory rate 18, temperature 99.5, O2 saturation 90% on room air. GENERAL: The patient is awake, alert, comfortable, not in distress. SKIN: Adequate turgor. HEENT: Slightly pale conjunctivae. Anicteric sclerae. No neck mass. No carotid bruits. No JVD. CHEST: No deformities. LUNGS: Clear breath sounds. HEART: Normal sinus rhythm. No murmurs, no gallops, no rubs. ABDOMEN: Globular, soft, nontender. No masses. EXTREMITIES: No edema. No deformities. MEDICATIONS: Of January 22, 2020, were reviewed. LABORATORY DATA: Laboratories of January 22, 2020: CBC is pending. On January 21, 2020: Hemoglobin 8.4, hematocrit 24.5. Potassium 4, BUN 42, creatinine 6.22. Glucose of January 22, 2020, was 116. ASSESSMENT AND PLAN: 1. Left renal bleed. Continue supportive care. Continue to observe. Observe for any evidence of rebleed. If there is a rebleed, possibility of infarcting the kidney remains. 2. End-stage renal disease, stable. We will continue heparin free hemodialysis with the patient. I do not see any indication for an emergent hemodialysis today. He did tolerate the dialysis yesterday. We will resume back his dialysis this coming Monday. Agree with current management. Recheck CBC and basic metabolics in a.m. Job ID: [id number]
[2020-01-22 09:56] LABS: #Eosinphils 0.1 thou/uL (0.0-0.7); #Neutrophils 4.7 thou/uL (1.40-6.50); %Basophils 0.2 % (0.0-1.0); %Eosinophils 1.2 % (0.0-10.0); %Lymphocytes 14.7 % (21.0-51.0); %Monocytes 14.7 % (0.0-10.0); %Neutrophils 69.2 % (42.0-75.0); Band 2 % (5-11); Eosinophils 3 % (0-10); Hemoglobin 7.3 g/dL (14.0-18.0); Lymphocytes 16 % (21-51); MDiff Complete? YES; Mean Corpuscular HGB CONC 34.7 g/dL (32.0-36.0); Mean Corpuscular Hemoglobin 34.5 pg (27.0-31.0); Mean Corpuscular Volume 99.5 fL (78.0-98.0); Monocytes 11 % (0-10); Neutrophil 68 % (42-75); Platelet Count 96 thou/uL (130-400); Platelet Morphology Comment Appears Decreased; Polychromasia SLIGHT = 2-3 cells (100X) (0-2/hpf); RBC Distribution Width 12.7 % (11.5-14.5); Red Blood Cell (RBC) Count 2.12 mill/uL (4.70-6.10); White Blood Cell (WBC) Count 6.9 thou/uL (4.8-10.8)
[2020-01-22] MEDS: hydrALAZINE 25 MG TAB PO SCH (12:18)
[2020-01-22] MEDS: Amlodipine 10 MG TAB PO SCH (12:19)
[2020-01-22] MEDS ORDERED: Acetaminophen/Codeine 30-300mg Tablet PO PRN (12:21)
--- NOTE | 2020-01-22 14:07 | PRG ---
DATE OF SERVICE: 01/22/2020 This patient has been moved up to the 4th floor. He is tired. He said he kind of moved up late yesterday and did not sleep that well. He is a little short of breath. O2 sats are in the low 90s range. His blood pressure is stable. His pulse is stable. He is not having any abdominal or flank pain. His hemoglobin has dropped to 7.3 this morning, it was 8.5 last night. I will ask them to recheck that. He does not seem to be symptomatic from it. I do not know what his hemoglobin normally runs. I could not find any through this facility. I will put a text to Dr. Kang to see if he knows what he generally runs with this and hematocrit during a dialysis. If his hemoglobin continues to drop, he may require transfusion. It does not appear that he is actively bleeding at least clinically, even his exam is much better. He is nontender. His abdomen is soft. There is no rebound, no guarding. It may just be that this hemoglobin is more just a reflection of blood that he has lost already. I do not know if he has taken much fluids in where he does not make a whole lot of urine, some of it may be dilutional. I think if he continues to drop, he probably would need another transfusion of a unit or 2 and then possibly look at reimaging with him with a CT scan. I will be leaving for the next few days for Thanksgiving. I checked out for urologic coverage with Dr. Lake who will be available and I asked that if he can combine to check on the patient each day. Job ID: [id number]
--- NOTE | 2020-01-22 16:25 | PDOC.HOSPP ---
- Subjective Encounter Date: 01/22/20 Encounter Time: 11:00 Subjective: pt up in chair no complains. - Objective Vital Signs & Weight: Vital Signs (12 hours) Temp Pulse Resp BP BP Pulse Ox 01/22/20 13:04 98.7 F 63 16 133/67 91 L 01/22/20 12:19 68 116/52 L 01/22/20 12:18 68 116/52 L 01/22/20 08:00 90 L 01/22/20 07:29 99.5 F 68 18 116/52 L 90 L 01/22/20 04:45 99.5 F 65 16 114/57 L 91 L Weight Admit Weight 176 lb Weight 176 lb 9.444 oz Most Recent Monitor Data Heart Rate from ECG 71 NIBP 124/86 NIBP BP-Mean 98 Respiration from ECG 23 SpO2 94 I&O: 01/21/20 01/22/20 01/23/20 06:59 06:59 06:59 Intake Total 338 750 Output Total 0 465 Balance 338 285 Result Diagrams: 01/22/20 08:36 01/21/20 03:20 Additional Labs: Accuchecks 01/22/20 01/22/20 01/22/20 16:10 12:54 10:59 POC Glucose 108 H 105 H 120 H 01/22/20 01/21/20 01/21/20 04:27 22:22 16:33 POC Glucose 116 H 120 H 85 Hospitalist ROS - Review of Systems Cardiovascular: denies: chest pain, palpitations, orthopnea, paroxysmal noc. dyspnea, edema, light headedness, other Gastrointestinal: denies: nausea, vomiting, abdominal pain, diarrhea, constipation, melena, hematochezia, other Genitourinary: denies: dysuria, frequency, incontinence, hematuria, retention, other - Medication Medications: Active Medications Generic Name Dose Route Start Last Admin Trade Name Freq PRN Reason Stop Dose Admin Allopurinol 100 mg 01/22/20 09:00 01/22/20 07:40 Allopurinol 100 Mg Tab PO 100 mg DAILY [facility] Administration Amlodipine Besylate 10 mg 01/22/20 09:00 01/22/20 12:19 Amlodipine 10 Mg Tab PO Not Given DAILY [facility] Atorvastatin Calcium 10 mg 01/21/20 21:00 01/21/20 20:24 Atorvastatin Calcium 10 Mg Tab PO 10 mg HS DEIDRE Administration Epoetin Geraldo-epbx 7,500 unit 01/20/20 16:30 01/20/20 21:14 Epoetin Geraldo-Epbx (Esrd) 4,000 Unit/Ml Vial SC 7,500 unit Q7D DEIDRE Administration Glipizide 2.5 mg 01/22/20 07:30 01/22/20 08:56 Glipizide Xl 2.5 Mg Tablet PO 2.5 mg DAILY-AC DEIDRE Administration Hydralazine HCl 50 mg 01/21/20 15:00 01/22/20 12:18 Hydralazine 25 Mg Tab PO Not Given TID DEIDRE Hydroxyzine HCl 10 mg 01/21/20 21:00 01/22/20 08:54 Hydroxyzine 10 Mg Tab PO 10 mg BID DEIDRE Administration Levothyroxine Sodium 50 mcg 01/22/20 06:00 01/22/20 06:28 Levothyroxine Sodium 50 Mcg Tab PO 50 mcg 0600 DEIDRE Administration Multivitamins 1 tab 01/22/20 09:00 01/22/20 07:40 Multivit, Therapeutic 1 Tab PO 1 tab DAILY DEIDRE Administration Multivitamins/Zinc 1 tab 01/22/20 09:00 01/22/20 08:54 Stress 600 With Zinc 1 Tab PO 1 tab DAILY DEIDRE Administration - Exam Neck: negative: supple, symmetric, no JVD, no thyromegaly, no lymphadenopathy, no carotid bruit, JVD Heart: negative: RRR, no murmur, no gallops, no rubs, normal peripheral pulses, irregular, diminshed peripheral pulses, murmur present, II/IV, III/IV Respiratory: negative: CTAB, no wheezes, no rales, no ronchi, normal chest expansion, no tachypnea, normal percussion, rales, rhonchi, tachypneic, wheezes Gastrointestinal: negative: soft, non-tender, non-distended, normal bowel sounds, no palpable masses, no hepatomegaly, no splenomegaly, no bruit, no guarding, no rigidity, tender to palpation, distended, diminished bowl sounds, voluntary guarding Hosp A/P (1) Renal hemorrhage, left Code(s): N28.89 - OTHER SPECIFIED DISORDERS OF KIDNEY AND URETER Status: Acute (2) Acute blood loss anemia Code(s): D62 - ACUTE POSTHEMORRHAGIC ANEMIA Status: Acute (3) End stage renal disease on dialysis Code(s): N18.6 - END STAGE RENAL DISEASE; Z99.2 - DEPENDENCE ON RENAL DIALYSIS Status: Acute (4) Renal cell carcinoma of right kidney Code(s): C64.1 - MALIGNANT NEOPLASM OF RIGHT KIDNEY, EXCEPT RENAL PELVIS Status: Acute - Plan Status post 2 units of PRBC transfusion patient doing well. H&H stable. Patient was on meloxicam has been advised to stop taking it. Patient has some right thigh pain and has been seeing neurology as outpatient in [place]. We will start patient on couple of his blood pressure medications. 01/21 spoke with patient's son and updated him. We will check an H&H at 6 PM if less than 7 will transfuse 1 unit of blood. We will hold on blood pressure medications for now. We will start as needed pain meds.
[2020-01-22 18:19] LABS: Hemoglobin 7.1 g/dL (14.0-18.0)
[2020-01-22] MEDS: Atorvastatin Calcium 10 MG TAB PO SCH (21:21)
[2020-01-23] MEDS: Levothyroxine Sodium 50 MCG TAB PO SCH (06:12)
[2020-01-23] MEDS: hydrOXYzine 10 MG TAB PO SCH ×2 (06:12→21:27)
[2020-01-23 06:36] LABS: Hemoglobin 7.6 g/dL (14.0-18.0)
[2020-01-23 06:38] LABS: #Lymphocytes 1.3 thou/uL (1.20-3.40); #Neutrophils 5.7 thou/uL (1.40-6.50); %Basophils 0.4 % (0.0-1.0); %Eosinophils 0.5 % (0.0-10.0); %Lymphocytes 16.1 % (21.0-51.0); %Monocytes 12.8 % (0.0-10.0); %Neutrophils 70.2 % (42.0-75.0); Hemoglobin 7.6 g/dL (14.0-18.0); Mean Corpuscular HGB CONC 33.7 g/dL (32.0-36.0); Mean Corpuscular Hemoglobin 33.1 pg (27.0-31.0); Mean Corpuscular Volume 98.1 fL (78.0-98.0); Mean Platelet Volume 8.5 fL (7.4-10.4); Platelet Count 122 thou/uL (130-400); RBC Distribution Width 12.5 % (11.5-14.5); Red Blood Cell (RBC) Count 2.28 mill/uL (4.70-6.10); White Blood Cell (WBC) Count 8.1 thou/uL (4.8-10.8)
[2020-01-23 06:57] LABS: Anion Gap 16 mmol/L (10-20); BUN (Urea Nitrogen) 45 mg/dL (8.4-25.7); Calc. Creatinine Clearance 9 mL/min (70-130); Calcium 9.6 mg/dL (7.8-10.44); Carbon Dioxide 29 mmol/L (23-31); Chloride 100 mmol/L (98-107); Estimated GFR-MDRD 7; Glucose 108 mg/dL (83-110); Potassium 4.1 mmol/L (3.5-5.1); Sodium 141 mmol/L (136-145)
--- NOTE | 2020-01-23 07:26 | PRG ---
DATE OF SERVICE: 01/23/2020 SUBJECTIVE: Mr. Bonilla is doing well. He denies any pain. No fever or chills. His hemoglobin this morning is pending. OBJECTIVE: VITAL SIGNS: Temperature is 99.1, pulse 65, respirations 18, oxygen saturation 94% on room air, blood pressure 153/57. GENERAL: He is awake and alert. No apparent distress. CARDIOVASCULAR: Regular rhythm. PULMONARY: Breathing unlabored. ABDOMEN: Soft, nontender/nondistended. EXTREMITIES: Warm and well perfused. No edema. LABORATORY DATA: Hemoglobin this morning is 7.6, which is stable and slightly up from yesterday 6:00 p.m. at 7.1. ASSESSMENT: An 85-year-old male with a spontaneous left renal bleed on end-stage renal disease and atrophic left kidney. The patient's hemoglobin is stable. There is no indication for intervention at this time. Should he have any acute rebleed, can consider angioembolization. Job ID: [id number]
[2020-01-23] MEDS: Amlodipine 10 MG TAB PO SCH (08:56)
[2020-01-23] MEDS: Stress 600 With Zinc 1 TAB PO SCH (08:56)
[2020-01-23] MEDS: Allopurinol 100 MG TAB PO SCH (08:56)
[2020-01-23] MEDS: Multivit, Therapeutic 1 TAB PO SCH (08:56)
--- NOTE | 2020-01-23 10:40 | PRG ---
DATE OF SERVICE: 01/23/2020 SUBJECTIVE: Mr. Bonilla is an 85-year-old white male with ESRD and was admitted due to left spontaneous renal bleed. He is being observed whether he will need a renal infarction with his left kidney. He tells me he is feeling better. His hemoglobin is being monitored. He denies any chest pain or shortness of breath. OBJECTIVE: VITAL SIGNS: Blood pressure is 153/66, heart rate 62, respiratory rate 18, temperature 99.1, O2 saturation 93%. GENERAL: Awake, alert, comfortable, not in distress. SKIN: Adequate turgor. HEENT: Slightly pale conjunctivae. Anicteric sclerae. NECK: No neck mass. No carotid bruits. No JVD. CHEST: No deformities. LUNGS: Clear breath sounds. HEART: Normal sinus rhythm. No murmur. No gallops. No rubs. ABDOMEN: Globular, soft, nontender. No masses. EXTREMITIES: No edema. MEDICATIONS: On January 23, 2020, were reviewed. LABORATORY DATA: On January 23, 2020; white count 8.1, hemoglobin 7.6. Sodium 141, potassium 4.1, chloride 100, carbon dioxide 29, BUN 75, creatinine 7.12, calcium 9.6. ASSESSMENT AND PLAN: 1. End-stage renal disease, stable. No indication for any dialytic intervention. Potassium is noted to be within normal. In addition, he looks euvolemic. I have scheduled him for dialysis in a.m. 2. Left renal bleed. Continue to observe. Hemoglobin noted at 7.6 today. Continue Epogen, p.r.n. blood transfusion. 3. Agree with current management. Recheck CBC, basic metabolic in a.m. Job ID: [id number]
--- NOTE | 2020-01-23 13:34 | PDOC.HOSPP ---
- Subjective Encounter Date: 01/23/20 Encounter Time: 09:45 Subjective: pt up in bed asleep but arousable. - Objective Vital Signs & Weight: Vital Signs (12 hours) Temp Pulse Resp BP BP BP BP 01/23/20 11:15 99 F 60 18 135/72 01/23/20 08:56 62 153/66 H 01/23/20 07:58 99.1 F 61 18 153/66 H 01/23/20 04:50 99.1 F 65 18 153/57 H Pulse Ox 01/23/20 11:15 94 L 01/23/20 08:56 01/23/20 07:58 93 L 01/23/20 04:50 94 L Weight Admit Weight 176 lb Weight 176 lb 9.444 oz Most Recent Monitor Data Heart Rate from ECG 71 NIBP 124/86 NIBP BP-Mean 98 Respiration from ECG 23 SpO2 94 I&O: 01/22/20 01/23/20 01/24/20 06:59 06:59 06:59 Intake Total 750 630 Output Total 465 350 Balance 285 280 Result Diagrams: 01/23/20 06:11 01/23/20 06:11 Additional Labs: Accuchecks 01/23/20 01/23/20 01/22/20 11:12 04:17 16:10 POC Glucose 114 H 98 108 H Hospitalist ROS - Review of Systems Cardiovascular: denies: chest pain, palpitations, orthopnea, paroxysmal noc. dyspnea, edema, light headedness, other Gastrointestinal: denies: nausea, vomiting, abdominal pain, diarrhea, constipation, melena, hematochezia, other Genitourinary: denies: dysuria, frequency, incontinence, hematuria, retention, other - Medication Medications: Active Medications Generic Name Dose Route Start Last Admin Trade Name Freq PRN Reason Stop Dose Admin Allopurinol 100 mg 01/22/20 09:00 01/23/20 08:56 Allopurinol 100 Mg Tab PO 100 mg DAILY DEIDRE Administration Amlodipine Besylate 10 mg 01/22/20 09:00 01/23/20 08:56 Amlodipine 10 Mg Tab PO 10 mg DAILY DEIDRE Administration Atorvastatin Calcium 10 mg 01/21/20 21:00 01/22/20 21:21 Atorvastatin Calcium 10 Mg Tab PO 10 mg HS DEIDRE Administration Epoetin Geraldo-epbx 7,500 unit 01/20/20 16:30 01/20/20 21:14 Epoetin Geraldo-Epbx (Esrd) 4,000 Unit/Ml Vial SC 7,500 unit Q7D DEIDRE Administration Glipizide 2.5 mg 01/22/20 07:30 01/23/20 08:56 Glipizide Xl 2.5 Mg Tablet PO 2.5 mg DAILY-AC DEIDRE Administration Hydralazine HCl 50 mg 01/21/20 15:00 01/22/20 12:18 Hydralazine 25 Mg Tab PO Not Given TID DEIDRE Hydroxyzine HCl 10 mg 01/21/20 21:00 01/23/20 06:12 Hydroxyzine 10 Mg Tab PO 10 mg BID DEIDRE Administration Levothyroxine Sodium 50 mcg 01/22/20 06:00 01/23/20 06:12 Levothyroxine Sodium 50 Mcg Tab PO 50 mcg 0600 DEIDRE Administration Multivitamins 1 tab 01/22/20 09:00 01/23/20 08:56 Multivit, Therapeutic 1 Tab PO 1 tab DAILY DEIDRE Administration Multivitamins/Zinc 1 tab 01/22/20 09:00 01/23/20 08:56 Stress 600 With Zinc 1 Tab PO 1 tab DAILY DEIDRE Administration - Exam Heart: negative: RRR, no murmur, no gallops, no rubs, normal peripheral pulses, irregular, diminshed peripheral pulses, murmur present, II/IV, III/IV Respiratory: negative: CTAB, no wheezes, no rales, no ronchi, normal chest e xpansion, no tachypnea, normal percussion, rales, rhonchi, tachypneic, wheezes Gastrointestinal: negative: soft, non-tender, non-distended, normal bowel sounds, no palpable masses, no hepatomegaly, no splenomegaly, no bruit, no guarding, no rigidity, tender to palpation, distended, diminished bowl sounds, voluntary guarding Extremities: negative: no cyanosis, no clubbing, no edema, 1+ LE edema, 2+ LE edema, clubbing Hosp A/P (1) Renal hemorrhage, left Code(s): N28.89 - OTHER SPECIFIED DISORDERS OF KIDNEY AND URETER Status: Acute (2) Acute blood loss anemia Code(s): D62 - ACUTE POSTHEMORRHAGIC ANEMIA Status: Acute (3) End stage renal disease on dialysis Code(s): N18.6 - END STAGE RENAL DISEASE; Z99.2 - DEPENDENCE ON RENAL DIALYSIS Status: Acute (4) Renal cell carcinoma of right kidney Code(s): C64.1 - MALIGNANT NEOPLASM OF RIGHT KIDNEY, EXCEPT RENAL PELVIS Status: Acute - Plan Status post 2 units of PRBC transfusion patient doing well. H&H stable. Patient was on meloxicam has been advised to stop taking it. Patient has some right thigh pain and has been seeing neurology as outpatient in [place]. We will start patient on couple of his blood pressure medications. 01/21 spoke with patient's son and updated him. We will check an H&H at 6 PM if less than 7 will transfuse 1 unit of blood. We will hold on blood pressure medications for now. We will start as needed pain meds. 01/22 pt's hh is stable will monitor cbc and bmp. If stable possible discharge in am. esrd on dialysis.
[2020-01-23] MEDS: Atorvastatin Calcium 10 MG TAB PO SCH (21:27)
[2020-01-24 06:14] LABS: #Eosinphils 0.1 thou/uL (0.0-0.7); #Lymphocytes 1.2 thou/uL (1.20-3.40); #Monocytes 1.1 thou/uL (0.11-0.59); #Neutrophils 5.8 thou/uL (1.40-6.50); %Basophils 0.2 % (0.0-1.0); %Eosinophils 0.6 % (0.0-10.0); %Lymphocytes 14.9 % (21.0-51.0); %Monocytes 13.4 % (0.0-10.0); %Neutrophils 70.9 % (42.0-75.0); Hemoglobin 6.9 g/dL (14.0-18.0); Mean Corpuscular Hemoglobin 34.3 pg (27.0-31.0); Mean Corpuscular Volume 97.9 fL (78.0-98.0); Mean Platelet Volume 8.4 fL (7.4-10.4); Platelet Count 134 thou/uL (130-400); RBC Distribution Width 12.6 % (11.5-14.5); Red Blood Cell (RBC) Count 2.03 mill/uL (4.70-6.10); White Blood Cell (WBC) Count 8.2 thou/uL (4.8-10.8)
[2020-01-24] MEDS: Levothyroxine Sodium 50 MCG TAB PO SCH (06:19)
[2020-01-24 06:31] LABS: Anion Gap 16 mmol/L (10-20); BUN (Urea Nitrogen) 60 mg/dL (8.4-25.7); Calc. Creatinine Clearance 7 mL/min (70-130); Calcium 9.1 mg/dL (7.8-10.44); Carbon Dioxide 27 mmol/L (23-31); Chloride 100 mmol/L (98-107); Estimated GFR-MDRD 6; Glucose 91 mg/dL (83-110); Potassium 4.3 mmol/L (3.5-5.1); Sodium 139 mmol/L (136-145)
[2020-01-24] MEDS: Stress 600 With Zinc 1 TAB PO SCH (08:07)
[2020-01-24] MEDS: hydrOXYzine 10 MG TAB PO SCH ×2 (08:07→21:14)
[2020-01-24] MEDS: Amlodipine 10 MG TAB PO SCH (08:08)
[2020-01-24] MEDS: Multivit, Therapeutic 1 TAB PO SCH (08:08)
[2020-01-24] MEDS: Allopurinol 100 MG TAB PO SCH (08:09)
--- NOTE | 2020-01-24 08:33 | PRG ---
DATE OF SERVICE: 01/24/2020 SUBJECTIVE: Mr. Bonilla is an 85-year-old white male with ESRD and currently on maintenance hemodialysis. He was admitted for symptomatic anemia secondary to left renal bleed. He is being observed. Consideration for nephrectomy versus left renal function is being considered if active bleeding is persistent. No new complaints today. No abdominal pain. No shortness of breath. No chest pain. However, the patient was noted to be anemic today with hemoglobin 6.9. OBJECTIVE: VITAL SIGNS: Blood pressure is 146/57, heart rate 66, respiratory rate 18, temperature 98.8, and O2 saturation 93%. GENERAL: The patient is awake, alert, comfortable, not in overt distress. SKIN: Adequate turgor. HEENT: He has a slightly pale conjunctivae. Anicteric sclerae. NECK: No neck mass. No carotid bruits. No JVD. CHEST: No deformities. LUNGS: Clear breath sounds. HEART: Normal sinus rhythm. No murmur. No gallops. No rubs. ABDOMEN: Globular, soft, and nontender. No masses. EXTREMITIES: No edema. MEDICATIONS: Of January 24, 2020, was reviewed. LABORATORY DATA: Laboratories of January 24, 2020; white count 8.2, hemoglobin 6.9, hematocrit 19.8. Sodium 139, potassium 4.3, chloride 100, carbon dioxide 27, BUN 68, creatinine 8.82, glucose 91, and calcium 9.1. ASSESSMENT AND PLAN: 1. End-stage renal disease - we will plan for hemodialysis this morning. We will use no heparin due to the recent left renal bleed. 2. Symptomatic anemia. We will transfuse 2 units of packed RBC with dialysis. 3. Left renal bleed - continue to observe. If persistent, consideration for infection of the left kidney is being entertained. Recheck CBC and basic metabolic panel in a.m. Job ID: [id number]
--- NOTE | 2020-01-24 14:49 | PDOC.HOSPP ---
- Subjective Encounter Date: 01/24/20 Encounter Time: 11:55 Subjective: Patient up in dialysis denies any complaints today. - Objective Vital Signs & Weight: Vital Signs (12 hours) Temp Pulse Pulse Resp BP BP BP 01/24/20 11:00 98.4 F 57 L 16 142/61 H 01/24/20 10:25 98.2 F 64 16 140/67 01/24/20 10:08 98.6 F 65 16 135/61 01/24/20 08:08 66 146/57 H 01/24/20 08:00 01/24/20 07:14 98.8 F 66 18 146/57 H Pulse Ox 01/24/20 11:00 01/24/20 10:25 01/24/20 10:08 01/24/20 08:08 01/24/20 08:00 97 01/24/20 07:14 93 L Weight Admit Weight 176 lb Weight 176 lb 9.444 oz Most Recent Monitor Data Heart Rate from ECG 71 NIBP 124/86 NIBP BP-Mean 98 Respiration from ECG 23 SpO2 94 I&O: 01/23/20 01/24/20 01/25/20 06:59 06:59 06:59 Intake Total 630 450 Output Total 350 Balance 280 450 Result Diagrams: 01/24/20 05:51 01/24/20 05:51 Additional Labs: Accuchecks 01/24/20 01/23/20 05:24 16:17 POC Glucose 90 122 H Hospitalist ROS - Review of Systems Cardiovascular: denies: chest pain, palpitations, orthopnea, paroxysmal noc. dyspnea, edema, light headedness, other Gastrointestinal: denies: nausea, vomiting, abdominal pain, diarrhea, constipation, melena, hematochezia, other Genitourinary: denies: dysuria, frequency, incontinence, hematuria, retention, other - Medication Medications: Active Medications Generic Name Dose Route Start Last Admin Trade Name Freq PRN Reason Stop Dose Admin Allopurinol 100 mg 01/22/20 09:00 01/24/20 08:09 Allopurinol 100 Mg Tab PO 100 mg DAILY DEIDRE Administration Amlodipine Besylate 10 mg 01/22/20 09:00 01/24/20 08:08 Amlodipine 10 Mg Tab PO 10 mg DAILY DEIDRE Administration Atorvastatin Calcium 10 mg 01/21/20 21:00 01/23/20 21:27 Atorvastatin Calcium 10 Mg Tab PO 10 mg HS DEIDRE Administration Epoetin Geraldo-epbx 7,500 unit 01/20/20 16:30 01/20/20 21:14 Epoetin Geraldo-Epbx (Esrd) 4,000 Unit/Ml Vial SC 7,500 unit Q7D DEIDRE Administration Glipizide 2.5 mg 01/22/20 07:30 01/24/20 08:07 Glipizide Xl 2.5 Mg Tablet PO 2.5 mg DAILY-AC DEIDRE Administration Hydralazine HCl 50 mg 01/21/20 15:00 01/22/20 12:18 Hydralazine 25 Mg Tab PO Not Given TID DEIDRE Hydroxyzine HCl 10 mg 01/21/20 21:00 01/24/20 08:07 Hydroxyzine 10 Mg Tab PO 10 mg BID DEIDRE Administration Levothyroxine Sodium 50 mcg 01/22/20 06:00 01/24/20 06:19 Levothyroxine Sodium 50 Mcg Tab PO 50 mcg 0600 DEIDRE Administration Multivitamins 1 tab 01/22/20 09:00 01/24/20 08:08 Multivit, Therapeutic 1 Tab PO 1 tab DAILY DEIDRE Administration Multivitamins/Zinc 1 tab 01/22/20 09:00 01/24/20 08:07 Stress 600 With Zinc 1 Tab PO 1 tab DAILY DEIDRE Administration - Exam Heart: negative: RRR, no murmur, no gallops, no rubs, normal peripheral pulses, irregular, diminshed peripheral pulses, murmur present, II/IV, III/IV Respiratory: negative: CTAB, no wheezes, no rales, no ronchi, normal chest ex pansion, no tachypnea, normal percussion, rales, rhonchi, tachypneic, wheezes Gastrointestinal: negative: soft, non-tender, non-distended, normal bowel sounds, no palpable masses, no hepatomegaly, no splenomegaly, no bruit, no guarding, no rigidity, tender to palpation, distended, diminished bowl sounds, voluntary guarding Hosp A/P (1) Renal hemorrhage, left Code(s): N28.89 - OTHER SPECIFIED DISORDERS OF KIDNEY AND URETER Status: Acute (2) Acute blood loss anemia Code(s): D62 - ACUTE POSTHEMORRHAGIC ANEMIA Status: Acute (3) End stage renal disease on dialysis Code(s): N18.6 - END STAGE RENAL DISEASE; Z99.2 - DEPENDENCE ON RENAL DIALYSIS Status: Acute (4) Renal cell carcinoma of right kidney Code(s): C64.1 - MALIGNANT NEOPLASM OF RIGHT KIDNEY, EXCEPT RENAL PELVIS Status: Acute - Plan Status post 2 units of PRBC transfusion patient doing well. H&H stable. Patient was on meloxicam has been advised to stop taking it. Patient has some right thigh pain and has been seeing neurology as outpatient in [place]. We will start patient on couple of his blood pressure medications. 01/21 spoke with patient's son and updated him. We will check an H&H at 6 PM if less than 7 will transfuse 1 unit of blood. We will hold on blood pressure medications for now. We will start as needed pain meds. 01/22 pt's hh is stable will monitor cbc and bmp. If stable possible discharge in am. esrd on dialysis. 01/23 patient's H&H dropped today received 2 units of PRBCs in dialysis. We will continue to monitor. He had a low-grade fever however no WBCs we will continue to monitor for infection. Blood pressure stable we will continue to hold other blood pressure medications.
[2020-01-24 18:33] LABS: #Eosinphils 0.1 thou/uL (0.0-0.7); #Lymphocytes 1.2 thou/uL (1.20-3.40); #Monocytes 1.1 thou/uL (0.11-0.59); #Neutrophils 5.9 thou/uL (1.40-6.50); %Basophils 0.4 % (0.0-1.0); %Eosinophils 1.2 % (0.0-10.0); %Lymphocytes 14.5 % (21.0-51.0); %Monocytes 13.5 % (0.0-10.0); %Neutrophils 70.5 % (42.0-75.0); Hemoglobin 9.5 g/dL (14.0-18.0); Mean Corpuscular HGB CONC 34.4 g/dL (32.0-36.0); Mean Corpuscular Hemoglobin 32.5 pg (27.0-31.0); Mean Corpuscular Volume 94.6 fL (78.0-98.0); Mean Platelet Volume 8.2 fL (7.4-10.4); Platelet Count 146 thou/uL (130-400); RBC Distribution Width 13.5 % (11.5-14.5); Red Blood Cell (RBC) Count 2.91 mill/uL (4.70-6.10); White Blood Cell (WBC) Count 8.4 thou/uL (4.8-10.8)
[2020-01-24 18:42] LABS: Anion Gap 15 mmol/L (10-20); BUN (Urea Nitrogen) 26 mg/dL (8.4-25.7); Calc. Creatinine Clearance 13 mL/min (70-130); Calcium 9.6 mg/dL (7.8-10.44); Carbon Dioxide 29 mmol/L (23-31); Chloride 97 mmol/L (98-107); Estimated GFR-MDRD 12; Glucose 100 mg/dL (83-110); Potassium 3.4 mmol/L (3.5-5.1); Sodium 138 mmol/L (136-145)
[2020-01-24] MEDS: Atorvastatin Calcium 10 MG TAB PO SCH (21:14)
--- NOTE | 2020-01-24 21:15 | PRG ---
DATE OF SERVICE: 01/24/2020 SUBJECTIVE: Overall, the patient is doing well. He denies any pain. No fevers or chills. The patient's hemoglobin continued to trend down slightly and he was given 2 units of packed red blood cells with dialysis today. OBJECTIVE: VITAL SIGNS: Temperature 99.0, pulse 62, respirations 16, oxygen saturation 90% on room air, blood pressure 156/68. GENERAL: He is awake and alert, in no apparent distress. CARDIOVASCULAR: Regular rate and rhythm. PULMONARY: Breathing unlabored. ABDOMEN: Soft, nontender, and nondistended. NEUROLOGIC: No focal deficits. EXTREMITIES: Warm and well perfused. No edema. LABORATORY DATA: Hemoglobin 9.5 and hematocrit 27.5, this is up from 6.9 and 19.8 this morning. ASSESSMENT: An 85-year-old male with spontaneous left renal hemorrhage with end-stage renal disease and an atrophic left kidney. PLAN: The patient's hemoglobin and hematocrit have responded appropriately to 2 units of packed red blood cells with dialysis. Continue to monitor his H and H. Clinically, he seems to be doing well. It is not likely that he will require any intervention. Should he need intervention for continued bleeding, we will consider angioembolization of his kidneys. Job ID: [id number]
[2020-01-25] MEDS: Levothyroxine Sodium 50 MCG TAB PO SCH (06:13)
[2020-01-25 06:47] LABS: ALT (SGPT) 13 U/L (8-55); AST (SGOT) 23 U/L (5-34); Albumin 3.5 g/dL (3.4-4.8); Alkaline Phosphatase 92 U/L (40-110); Anion Gap 17 mmol/L (10-20); BUN (Urea Nitrogen) 36 mg/dL (8.4-25.7); Bilirubin, Total 1.2 mg/dL (0.2-1.2); Calc. Creatinine Clearance 10 mL/min (70-130); Calcium 9.2 mg/dL (7.8-10.44); Carbon Dioxide 28 mmol/L (23-31); Chloride 98 mmol/L (98-107); Estimated GFR-MDRD 9; Globulin 3.1 g/dL (2.4-3.5); Glucose 92 mg/dL (83-110); Potassium 3.8 mmol/L (3.5-5.1); Protein, Total 6.6 g/dL (5.8-8.1); Sodium 139 mmol/L (136-145)
[2020-01-25 06:49] LABS: Band 5 % (5-11); Hemoglobin 8.8 g/dL (14.0-18.0); Lymphocytes 9 % (21-51); MDiff Complete? YES; Mean Corpuscular HGB CONC 34.3 g/dL (32.0-36.0); Mean Corpuscular Hemoglobin 32.4 pg (27.0-31.0); Mean Corpuscular Volume 94.3 fL (78.0-98.0); Mean Platelet Volume 8.3 fL (7.4-10.4); Monocytes 7 % (0-10); Neutrophil 79 % (42-75); Platelet Count 139 thou/uL (130-400); Platelet Morphology Comment Appears Adequate; RBC Distribution Width 13.6 % (11.5-14.5); Red Blood Cell (RBC) Count 2.71 mill/uL (4.70-6.10); White Blood Cell (WBC) Count 7.4 thou/uL (4.8-10.8)
--- NOTE | 2020-01-25 07:43 | PRG ---
DATE OF SERVICE: 01/25/2020 SUBJECTIVE: Mr. Bonilla is an 85-year-old white male with ESRD-on maintenance hemodialysis, who was admitted for spontaneous left renal bleed. He is being observed if the bleeding will stop. He did receive 2 units of packed RBC again yesterday with dialysis. He tolerated the dialysis treatment this morning and he voices no new complaints. He denies any abdominal pain, chest pain, or shortness of breath. OBJECTIVE: VITAL SIGNS: Blood pressure is 129/59, heart rate 60, respiratory rate 16, temperature 98.5, O2 saturation 91% on room air. GENERAL: Patient is awake, comfortable, not in overt distress. SKIN: Adequate turgor. HEENT: He has pinkish conjunctivae. Anicteric sclerae. No neck mass. No carotid bruits. No JVD. CHEST: No deformities. LUNGS: Clear breath sounds. No wheezing. No crackles. HEART: Normal sinus rhythm. No murmur. No gallops. No rubs. ABDOMEN: Globular, soft, nontender. No masses. EXTREMITIES: No edema. No deformities. MEDICATIONS: From January 25, 2020, was reviewed. LABORATORY DATA: January 25, 2020; white count 7.4, hemoglobin 8.8. January 24, 2020; hemoglobin 9.5. January 25, 2020; potassium 3.8, BUN 36, creatinine 5.94. AST was 23, ALT 13. ASSESSMENT AND PLAN: 1. Left renal bleed - continue supportive care, p.r.n. blood transfusion. Please note, this has not stabilized at the present time. Continue to observe. If over the weekend the bleeding continuous or the H and H continues to go down, consider possibility of left renal infarction. Recheck CBC again tomorrow. 2. End-stage renal disease, stable. No indication for any dialytic intervention today. Continue current Monday, Monday, and Monday hemodialysis. Due to the recent left renal bleed, the patient is not receiving any heparin. 3. Chronic anemia, on weekly Epogen. Case discussed at length with patient's via telephone. Job ID: [id number] [facility]
[2020-01-25] MEDS: Amlodipine 10 MG TAB PO SCH (09:39)
[2020-01-25] MEDS: Allopurinol 100 MG TAB PO SCH (09:39)
[2020-01-25] MEDS: hydrOXYzine 10 MG TAB PO SCH ×2 (09:40→21:31)
[2020-01-25] MEDS: Stress 600 With Zinc 1 TAB PO SCH (09:40)
[2020-01-25] MEDS: Multivit, Therapeutic 1 TAB PO SCH (09:40)
[2020-01-25] MEDS: hydrALAZINE 25 MG TAB PO SCH ×2 (15:13→21:30)
--- NOTE | 2020-01-25 16:59 | PDOC.HOSPP ---
- Subjective Encounter Date: 01/25/20 Encounter Time: 09:45 Subjective: Patient up in bed no complaints. - Objective Vital Signs & Weight: Vital Signs (12 hours) Temp Pulse Resp BP BP Pulse Ox 01/25/20 15:13 62 132/61 01/25/20 09:39 57 L 161/80 H 01/25/20 07:58 99.0 F 57 L 18 154/63 H 93 L Weight Admit Weight 176 lb Weight 176 lb 9.444 oz Most Recent Monitor Data Heart Rate from ECG 71 NIBP 124/86 NIBP BP-Mean 98 Respiration from ECG 23 SpO2 94 I&O: 01/24/20 01/25/20 01/26/20 06:59 06:59 06:59 Intake Total 450 40 Balance 450 40 Result Diagrams: 01/25/20 05:56 01/25/20 05:56 Additional Labs: Accuchecks 01/25/20 01/25/20 01/25/20 16:16 11:17 04:24 POC Glucose 136 H 121 H 92 01/24/20 19:19 POC Glucose 117 H Hospitalist ROS - Review of Systems Cardiovascular: denies: chest pain, palpitations, orthopnea, paroxysmal noc. d yspnea, edema, light headedness, other Gastrointestinal: denies: nausea, vomiting, abdominal pain, diarrhea, constipation, melena, hematochezia, other Genitourinary: denies: dysuria, frequency, incontinence, hematuria, retention, other - Medication Medications: Active Medications Generic Name Dose Route Start Last Admin Trade Name Freq PRN Reason Stop Dose Admin Allopurinol 100 mg 01/22/20 09:00 01/25/20 09:39 Allopurinol 100 Mg Tab PO 100 mg DAILY DEIDRE Administration Amlodipine Besylate 10 mg 01/22/20 09:00 01/25/20 09:39 Amlodipine 10 Mg Tab PO 10 mg DAILY DEIDRE Administration Atorvastatin Calcium 10 mg 01/21/20 21:00 01/24/20 21:14 Atorvastatin Calcium 10 Mg Tab PO 10 mg HS DEIDRE Administration Epoetin Geraldo-epbx 7,500 unit 01/20/20 16:30 01/20/20 21:14 Epoetin Geraldo-Epbx (Esrd) 4,000 Unit/Ml Vial SC 7,500 unit Q7D DEIDRE Administration Glipizide 2.5 mg 01/22/20 07:30 01/25/20 09:39 Glipizide Xl 2.5 Mg Tablet PO 2.5 mg DAILY-AC DEIDRE Administration Hydralazine HCl 50 mg 01/21/20 15:00 01/25/20 15:13 Hydralazine 25 Mg Tab PO 50 mg TID DEIDRE Administration Hydroxyzine HCl 10 mg 01/21/20 21:00 01/25/20 09:40 Hydroxyzine 10 Mg Tab PO 10 mg BID DEIDRE Administration Levothyroxine Sodium 50 mcg 01/22/20 06:00 01/25/20 06:13 Levothyroxine Sodium 50 Mcg Tab PO 50 mcg 0600 DEIDRE Administration Multivitamins 1 tab 01/22/20 09:00 01/25/20 09:40 Multivit, Therapeutic 1 Tab PO 1 tab DAILY DEIDRE Administration Multivitamins/Zinc 1 tab 01/22/20 09:00 01/25/20 09:40 Stress 600 With Zinc 1 Tab PO 1 tab DAILY DEIDRE Administration - Exam Heart: negative: RRR, no murmur, no gallops, no rubs, normal peripheral pulses, irregular, diminshed peripheral pulses, murmur present, II/IV, III/IV Respiratory: negative: CTAB, no wheezes, no rales, no ronchi, normal chest expansion, no tachypnea, normal percussion, rales, rhonchi, tachypneic, wheezes Gastrointestinal: negative: soft, non-tender, non-distended, normal bowel sounds, no palpable masses, no hepatomegaly, no splenomegaly, no bruit, no guarding, no rigidity, tender to palpation, distended, diminished bowl sounds, voluntary guarding Extremities: negative: no cyanosis, no clubbing, no edema, 1+ LE edema, 2+ LE edema, clubbing Hosp A/P (1) Renal hemorrhage, left Code(s): N28.89 - OTHER SPECIFIED DISORDERS OF KIDNEY AND URETER Status: Acute (2) Acute blood loss anemia Code(s): D62 - ACUTE POSTHEMORRHAGIC ANEMIA Status: Acute (3) End stage renal disease on dialysis Code(s): N18.6 - END STAGE RENAL DISEASE; Z99.2 - DEPENDENCE ON RENAL DIALYSIS Status: Acute (4) Renal cell carcinoma of right kidney Code(s): C64.1 - MALIGNANT NEOPLASM OF RIGHT KIDNEY, EXCEPT RENAL PELVIS Status: Acute - Plan Status post 2 units of PRBC transfusion patient doing well. H&H stable. Patient was on meloxicam has been advised to stop taking it. Patient has some right thigh pain and has been seeing neurology as outpatient in [place]. We will start patient on couple of his blood pressure medications. 01/21 spoke with patient's son and updated him. We will check an H&H at 6 PM if less than 7 will transfuse 1 unit of blood. We will hold on blood pressure medications for now. We will start as needed pain meds. 01/22 pt's hh is stable will monitor cbc and bmp. If stable possible discharge in am. esrd on dialysis. 01/23 patient's H&H dropped today received 2 units of PRBCs in dialysis. We will continue to monitor. He had a low-grade fever however no WBCs we will con tinue to monitor for infection. Blood pressure stable we will continue to hold other blood pressure medications. 01/24 patient dropped his H&H to 8.8 today patient and updated we will continue to monitor if he continues to drop his H&H will need to angioembolization.
[2020-01-25] MEDS: Atorvastatin Calcium 10 MG TAB PO SCH (21:30)
[2020-01-26] MEDS: Levothyroxine Sodium 50 MCG TAB PO SCH (05:51)
[2020-01-26 10:02] LABS: #Eosinphils 0.1 thou/uL (0.0-0.7); #Lymphocytes 1.3 thou/uL (1.20-3.40); #Neutrophils 5.4 thou/uL (1.40-6.50); %Basophils 0.1 % (0.0-1.0); %Eosinophils 1.6 % (0.0-10.0); %Lymphocytes 16.6 % (21.0-51.0); %Monocytes 13.1 % (0.0-10.0); %Neutrophils 68.5 % (42.0-75.0); Mean Corpuscular HGB CONC 34.2 g/dL (32.0-36.0); Mean Corpuscular Hemoglobin 32.6 pg (27.0-31.0); Mean Corpuscular Volume 95.2 fL (78.0-98.0); Mean Platelet Volume 8.4 fL (7.4-10.4); Platelet Count 167 thou/uL (130-400); RBC Distribution Width 13.2 % (11.5-14.5); Red Blood Cell (RBC) Count 3.06 mill/uL (4.70-6.10); White Blood Cell (WBC) Count 7.9 thou/uL (4.8-10.8)
[2020-01-26] MEDS: hydrALAZINE 25 MG TAB PO SCH ×3 (10:29→20:37)
[2020-01-26] MEDS: Stress 600 With Zinc 1 TAB PO SCH (10:29)
[2020-01-26] MEDS: Amlodipine 10 MG TAB PO SCH (10:30)
[2020-01-26] MEDS: Allopurinol 100 MG TAB PO SCH (10:30)
[2020-01-26] MEDS: Multivit, Therapeutic 1 TAB PO SCH (10:30)
[2020-01-26] MEDS: hydrOXYzine 10 MG TAB PO SCH ×2 (10:30→20:37)
--- NOTE | 2020-01-26 12:05 | PRG ---
DATE OF SERVICE: 01/26/2020 SUBJECTIVE: Mr. Bonilla is an 85-year-old white male with ESRD and currently on maintenance hemodialysis, was admitted for left renal bleed. We are following up this patient for his maintenance hemodialysis. He has been tolerating dialysis. Due to the recent left renal bleed, he has not been receiving any heparin. No new complaints today. No chest pain or shortness of breath. OBJECTIVE: VITAL SIGNS: Blood pressure 140/66, heart rate 60, respiratory rate 18, temperature 98.8, O2 saturation 94%. GENERAL: Noted to be awake, alert, comfortable, not in distress. SKIN: Adequate turgor. HEENT: He has pinkish conjunctivae. Anicteric sclerae. NECK: No neck mass. No carotid bruits. No JVD. CHEST: No deformities. LUNGS: Clear breath sounds. HEART: Normal sinus rhythm. No murmur. No gallops. No rubs. ABDOMEN: Globular, soft, nontender, no masses. EXTREMITIES: No edema, no deformities. MEDICATIONS: January 26, 2020, was reviewed. LABORATORY DATA: January 26, 2020, white count 7.9, hemoglobin 10. ASSESSMENT AND PLAN: 1. Left renal bleed-stabilizing renal bleed. Hemoglobin noted at around 10. Continue supportive care, p.r.n. blood transfusion, continue Epogen-weekly dosing. Recheck CBC in a.m. 2. Endstage renal disease, stable. No indication for any emergent hemodialysis. Continue Monday, Monday, and Monday dialysis regimen. Again, due to the recent left renal bleed, the patient is not receiving any heparin with dialysis. 3. If bleeding of the left kidney will not stabilize, he may be a candidate for left renal infarction/embolization. 4. Recheck CBC, basic metabolic in a.m. Job ID: [id number]
--- NOTE | 2020-01-26 15:31 | PDOC.HOSPP ---
- Subjective Encounter Date: 01/26/20 Encounter Time: 12:30 Subjective: Patient up in bed no complaints. - Objective Vital Signs & Weight: Vital Signs (12 hours) Temp Pulse Resp BP BP Pulse Ox 01/26/20 10:29 60 01/26/20 08:00 94 L 01/26/20 07:47 98.8 F 60 18 140/66 94 L 01/26/20 04:00 99.2 F 60 20 134/65 92 L Weight Admit Weight 176 lb Weight 176 lb 9.444 oz Most Recent Monitor Data Heart Rate from ECG 71 NIBP 124/86 NIBP BP-Mean 98 Respiration from ECG 23 SpO2 94 I&O: 01/25/20 01/26/20 01/27/20 06:59 06:59 06:59 Intake Total 450 460 360 Output Total 200 Balance 450 260 360 Result Diagrams: 01/26/20 09:37 01/25/20 05:56 Additional Labs: Accuchecks 01/26/20 01/25/20 01/25/20 04:27 20:02 16:16 POC Glucose 97 114 H 136 H Hospitalist ROS - Review of Systems Cardiovascular: denies: chest pain, palpitations, orthopnea, paroxysmal noc. dyspnea, edema, light headedness, other Gastrointestinal: denies: nausea, vomiting, abdominal pain, diarrhea, constipation, melena, hematochezia, other Genitourinary: denies: dysuria, frequency, incontinence, hematuria, retention, other - Medication Medications: Active Medications Generic Name Dose Route Start Last Admin Trade Name Freq PRN Reason Stop Dose Admin Allopurinol 100 mg 01/22/20 09:00 01/26/20 10:30 Allopurinol 100 Mg Tab PO 100 mg DAILY DEIDRE Administration Amlodipine Besylate 10 mg 01/22/20 09:00 01/26/20 10:30 Amlodipine 10 Mg Tab PO 10 mg DAILY DEIDRE Administration Atorvastatin Calcium 10 mg 01/21/20 21:00 01/25/20 21:30 Atorvastatin Calcium 10 Mg Tab PO 10 mg HS DEIDRE Administration Epoetin Geraldo-epbx 7,500 unit 01/20/20 16:30 01/20/20 21:14 Epoetin Geraldo-Epbx (Esrd) 4,000 Unit/Ml Vial SC 7,500 unit Q7D DEIDRE Administration Glipizide 2.5 mg 01/22/20 07:30 01/26/20 13:47 Glipizide Xl 2.5 Mg Tablet PO Not Given DAILY-AC DEIDRE Hydralazine HCl 50 mg 01/21/20 15:00 01/26/20 10:29 Hydralazine 25 Mg Tab PO 50 mg TID DEIDRE Administration Hydroxyzine HCl 10 mg 01/21/20 21:00 01/26/20 10:30 Hydroxyzine 10 Mg Tab PO 10 mg BID DEIDRE Administration Levothyroxine Sodium 50 mcg 01/22/20 06:00 01/26/20 05:51 Levothyroxine Sodium 50 Mcg Tab PO 50 mcg 0600 DEIDRE Administration Multivitamins 1 tab 01/22/20 09:00 01/26/20 10:30 Multivit, Therapeutic 1 Tab PO 1 tab DAILY DEIDRE Administration Multivitamins/Zinc 1 tab 01/22/20 09:00 01/26/20 10:29 Stress 600 With Zinc 1 Tab PO 1 tab DAILY DEIDRE Administration - Exam Neck: negative: supple, symmetric, no JVD, no thyromegaly, no lymphadenopathy, no carotid bruit, JVD Heart: negative: RRR, no murmur, no gallops, no rubs, normal peripheral pulses, irregular, diminshed peripheral pulses, murmur present, II/IV, III/IV Respiratory: negative: CTAB, no wheezes, no rales, no ronchi, normal chest expansion, no tachypnea, normal percussion, rales, rhonchi, tachypneic, wheezes Hosp A/P (1) Renal hemorrhage, left Code(s): N28.89 - OTHER SPECIFIED DISORDERS OF KIDNEY AND URETER Status: Acute (2) Acute blood loss anemia Code(s): D62 - ACUTE POSTHEMORRHAGIC ANEMIA Status: Acute (3) End stage renal disease on dialysis Code(s): N18.6 - END STAGE RENAL DISEASE; Z99.2 - DEPENDENCE ON RENAL DIALYSIS Status: Acute (4) Renal cell carcinoma of right kidney Code(s): C64.1 - MALIGNANT NEOPLASM OF RIGHT KIDNEY, EXCEPT RENAL PELVIS Status: Acute - Plan Status post 2 units of PRBC transfusion patient doing well. H&H stable. Patient was on meloxicam has been advised to stop taking it. Patient has some right thigh pain and has been seeing neurology as outpatient in [place]. We will s tart patient on couple of his blood pressure medications. 01/21 spoke with patient's son and updated him. We will check an H&H at 6 PM if less than 7 will transfuse 1 unit of blood. We will hold on blood pressure medications for now. We will start as needed pain meds. 01/22 pt's hh is stable will monitor cbc and bmp. If stable possible discharge in am. esrd on dialysis. 01/23 patient's H&H dropped today received 2 units of PRBCs in dialysis. We will continue to monitor. He had a low-grade fever however no WBCs we will continue to monitor for infection. Blood pressure stable we will continue to hold other blood pressure medications. 01/24 patient dropped his H&H to 8.8 today patient and updated we will continue to monitor if he continues to drop his H&H will need to angioemb olization. 01/25 patient's H&H today 10 not sure if this is accurate. Will monitor for 1 more day if his H&H is stable possible discharge in the next day or 2. Patient has no history of heart disease. Encourage patient to get up and move around. concerned about patient's right thigh pain however currently patient's pain is controlled. I recommended against using all NSAIDs.
[2020-01-26] MEDS: Atorvastatin Calcium 10 MG TAB PO SCH (20:37)
[2020-01-27] MEDS: Levothyroxine Sodium 50 MCG TAB PO SCH (06:07)
[2020-01-27] MEDS: Allopurinol 100 MG TAB PO SCH (08:55)
[2020-01-27] MEDS: Stress 600 With Zinc 1 TAB PO SCH (08:55)
[2020-01-27] MEDS: hydrOXYzine 10 MG TAB PO SCH (08:55)
[2020-01-27] MEDS: Multivit, Therapeutic 1 TAB PO SCH (08:55)
--- NOTE | 2020-01-27 09:31 | PRG ---
DATE OF SERVICE: 01/27/2020 SERVICE: Renal Medicine. SUBJECTIVE: Mr. Bonilla is an 85-year-old white male with ESRD-on maintenance hemodialysis, was initially admitted for left renal bleed. He was observed and treated symptomatically. Blood transfusion has been given. The last hemoglobin was 10 noted yesterday, which may have stabilized the bleeding. No other complaints today. No chest pain. No shortness of breath; repeat hemoglobin to be done. OBJECTIVE: VITAL SIGNS: Blood pressure 132/64, heart rate 59, respiratory rate 20, temperature 98.4, O2 saturation 92%. GENERAL: The patient is noted to be awake, alert, comfortable, not in overt distress. SKIN: Adequate turgor. HEENT: Slight pinkish conjunctivae. Anicteric sclerae. No neck mass. No carotid bruits. No JVD. CHEST: No deformities. LUNGS: Clear breath sounds. No wheezing. No crackles. HEART: Normal sinus rhythm. No murmur. No gallops. No rubs. ABDOMEN: Globular, soft, nontender. No masses. EXTREMITIES: No edema. No deformities. MEDICATIONS: Medications of January 27, 2020, was reviewed. LABORATORY DATA: Laboratories of January 26, 2020; white count 7.9, hemoglobin 10. On January 25, 2020; potassium 3.8, BUN 36, creatinine 5.94. On January 26, 2020, glucose 126. ASSESSMENT AND PLAN: 1. Left renal bleed, stabilizing. No evidence of further bleeding. Last hemoglobin was noted at 10. Continue supportive care. Hold off any heparin. 2. ESRD, stable. We will continue heparin-free hemodialysis. The patient is scheduled this morning for another dialysis session. Fluid removal as tolerated. 3. Chronic anemia-the patient is to continue his weekly Epogen of 7500 units subcu q.7 days. Job ID: [id number] [facility]
[2020-01-27 10:59] LABS: #Eosinphils 0.2 thou/uL (0.0-0.7); #Lymphocytes 1.1 thou/uL (1.20-3.40); %Basophils 0.3 % (0.0-1.0); %Eosinophils 2.5 % (0.0-10.0); %Lymphocytes 14.4 % (21.0-51.0); %Monocytes 13.5 % (0.0-10.0); %Neutrophils 69.2 % (42.0-75.0); Hemoglobin 8.7 g/dL (14.0-18.0); Mean Corpuscular HGB CONC 33.9 g/dL (32.0-36.0); Mean Corpuscular Hemoglobin 32.3 pg (27.0-31.0); Mean Corpuscular Volume 95.2 fL (78.0-98.0); Mean Platelet Volume 8.2 fL (7.4-10.4); Platelet Count 177 thou/uL (130-400); RBC Distribution Width 13.1 % (11.5-14.5); White Blood Cell (WBC) Count 7.2 thou/uL (4.8-10.8)
[2020-01-27 11:21] LABS: Anion Gap 19 mmol/L (10-20); BUN (Urea Nitrogen) 64 mg/dL (8.4-25.7); Calc. Creatinine Clearance 7 mL/min (70-130); Calcium 9.1 mg/dL (7.8-10.44); Carbon Dioxide 25 mmol/L (23-31); Chloride 99 mmol/L (98-107); Estimated GFR-MDRD 6; Glucose 108 mg/dL (83-110); Potassium 3.5 mmol/L (3.5-5.1); Sodium 139 mmol/L (136-145)
[2020-01-27 11:40] LABS: HBSAg Index 0.15 S/CO (0-0.99); Hep B Surf Ag Non-Reactive S/CO (NonReactive)
--- NOTE | 2020-01-27 12:40 | PRG ---
DATE OF SERVICE: I reviewed his records from over the weekend when I was gone. He was transfused 2 units of blood a couple of days ago. His vital signs have been stable. He has had no pain over the last few days, nothing to suggest. Rebleed has occurred that is caused any complaints to him apart from the hemoglobin that had drifted down from 7.6 to 6.9 on the . It was 9.5 after that 8.8 after that and 10 yesterday and 8.7 today. I think this is probably stable currently. On exam, his abdomen is soft and flat without any significant tenderness or any mass. His platelet count is also now normal. I saw him and talked with him and examining him during dialysis. I do think from my standpoint, he could go home. I would like to see him in my office on the 12 of February at 2:30 in the afternoon. He will need a follow CAT scan at some point, and we will talk with him then and look at probably getting that scheduled. So, again from my standpoint, it would be okay with him being discharged with his hemoglobin being what it is. Job ID: [id number]
[2020-01-27] MEDS: Amlodipine 10 MG TAB PO SCH (14:24)
[2020-01-27] MEDS: hydrALAZINE 25 MG TAB PO SCH (14:24)
[2020-01-27 16:41] VITALS: BP 143/63; TEMP 99.1
[2020-01-27] MEDS: EPOETIN ALFA-EPBX (ESRD) 4,000 UNIT/ML VIAL SC SCH (17:18)
--- NOTE | 2020-01-28 08:45 | PDOC.DS.DS ---
Provider - Provider Date of Admission: 01/20/20 14:02 Date of Discharge: 01/27/20 Admitting Provider: Monet Bullock MD Consultations: Neurology, Pulmonary, Urology Primary Care Physician: Osmany Enamorado MD Course - Hospital Course Hospital Course: Patient is a very pleasant 85-year-old male who initially presented to the hospital with dizziness and weakness. Patient is on end-stage renal disease on dialysis. He was noted to have a low H&H. He underwent a CT abdomen pelvis for back pain which indicated a significant pericapsular hematoma and a large subcapsular hemorrhage of the left kidney. At this time patient was initially monitored in the ICU he required total of 4 units of PRBCs. Initially he required 2 units his H&H continue to trend downwards and he was given another 2 units. His H&H stabilized for 24 hours and at this time he was discharged home. Patient will check his H&H during dialysis on Monday. I have asked the patient if he has any symptoms to come into the hospital. His blood pressure medications have been adjusted accordingly. I have asked the to check blood pressures at home. He will also follow-up with his pain management doctor in [place] since his meloxicam has been discontinued. He has no history of CAD and I have stopped his aspirin also for now. He will have to follow-up with his primary care doctor to reinstate the aspirin. He has no cardiac stents according to patient and . Patient has a history of right nephrectomy. Patient will follow up with Dr. Funes in January. Resuscitation Status: 01/20/20 14:56 Resuscitation Status Routine Resuscitation Status: FULL: Full Resuscitation - Labs Lab Results: 01/27/20 10:30 01/27/20 10:30 Abnormal Lab Results - Last 48 hrs 01/26/20 09:37: RBC 3.06 L, Hgb 10.0 L, Hct 29.1 L, MCH 32.6 H, Lymphocytes % 16.6 L, Monocytes % 13.1 H, Monocytes # 1.0 H 01/27/20 10:30: BUN 64 H, Creatinine 9.08 H 01/27/20 10:30: RBC 2.70 L, Hgb 8.7 L, Hct 25.7 L, MCH 32.3 H, Lymphocytes % 14.4 L, Monocytes % 13.5 H, Lymphocytes # 1.1 L, Monocytes # 1.0 H Microbiology - Entire Visit 01/20/20 11:38 Stool - Pending Stool Occult Blood (PAUL) - Final Additional comments: CT abdomen pelvis Very extensive acute left renal hemorrhage with a very large subcapsu lar/pericapsular hematoma extensive acute appearing hemorrhage extending into the pararenal space and surrounding retroperitoneum with some free fluid. Status post right nephrectomy. Small left pleural effusion and patchy bilateral linear parenchymal changes - Physical Exam Vitals: Weight Admit Weight 176 lb Weight 176 lb 9.444 oz Most Recent Monitor Data Heart Rate from ECG 71 NIBP 124/86 NIBP BP-Mean 98 Respiration from ECG 23 SpO2 94 Physical Exam: The patient was seen and examined on the day of discharge. Problem - Problem (1) Renal hemorrhage, left Code(s): N28.89 - OTHER SPECIFIED DISORDERS OF KIDNEY AND URETER Status: Acute (2) Acute blood loss anemia Code(s): D62 - ACUTE POSTHEMORRHAGIC ANEMIA Status: Acute (3) End stage renal disease on dialysis Code(s): N18.6 - END STAGE RENAL DISEASE; Z99.2 - DEPENDENCE ON RENAL DIALYSIS Status: Acute (4) Renal cell carcinoma of right kidney Code(s): C64.1 - MALIGNANT NEOPLASM OF RIGHT KIDNEY, EXCEPT RENAL PELVIS Status: Acute Plan - Discharge Medications Prescriptions: Losartan [Cozaar] 50 mg PO DAILY #30 tab Home Medications: Medication Instructions Recorded Confirmed Type Allopurinol 100 mg PO DAILY 01/20/20 01/20/20 History Amlodipine Besylate [amLODIPine 10 mg PO DAILY 01/20/20 01/20/20 History Besylate] Ascorbic Acid [Vitamin C] 500 mg PO DAILY 01/20/20 01/20/20 History Docusate Sodium [Dulcolax Stool 100 mg PO BID 01/20/20 01/20/20 History Softener] Levothyroxine Sodium [Synthroid] 50 mcg PO DAILY 01/20/20 01/20/20 History Pnv No.95/Ferrous Fum/Folic AC 1 tab PO DAILY 01/20/20 01/20/20 History [ Caplet] Pregabalin [Lyrica] 75 mg PO DAILY 01/20/20 01/20/20 History Simvastatin [Zocor] 20 mg PO HS 01/20/20 01/20/20 History Sucroferric Oxyhydroxide [Velphoro] 500 mg PO TID- 01/20/20 01/20/20 History Vitamin B Complex [Super B-50 1 cap PO DAILY 01/20/20 01/20/20 History Complex] glipiZIDE [Glucotrol XL] 2.5 mg PO BID- 01/20/20 01/20/20 History hydrALAZINE HCl [Hydralazine HCl] 50 mg PO TID 01/20/20 01/20/20 History hydrOXYzine [Atarax] 10 mg PO BID 01/20/20 01/20/20 History Losartan [Cozaar] 50 mg PO DAILY #30 tab 01/27/20 Rx Allergies: JUAN ANTONIO Inhibitors Allergy (Verified 01/20/20 16:15) - Discharge Instructions Discharge Instructions:: follow up with primary care doctor. Activity:: Activity as Tolerated Nourishment:: Heart Healthy Diet - Follow up Plan Referrals: [facility] [Outside] Chris Funes MD [Active] - 02/13/20 2:30 pm Osmany Enamorado MD [Primary Care Provider] - 7 Days Iker Kang MD [Active] - (as directed) Disposition: HOME HEALTH Quality - Care Measures CORE MEASURES:: N/A
== END 2020-01-27 18:22 | disposition home health service (06) | DRG 699 ==
LOC: ERS 10:45 → ERHOLD 14:02 → CCU 18:04 → T4-A 01-22 00:27
PROVIDERS: ADMIT Family Medicine; ATTEND Internal Medicine
PROC: 30233N1 Transfusion of Nonautologous Red Blood Cells into Peripheral Vein, Percutaneous Approach (ICD-10-PCS; 2020-01-20)
PROC: 5A1D70Z Performance of Urinary Filtration, Intermittent, Less than 6 Hours Per Day (ICD-10-PCS; principal; 2020-01-24)
DX: N28.89 Other specified disorders of kidney and ureter (principal); D62 Acute posthemorrhagic anemia; C64.1 Malignant neoplasm of right kidney, except renal pelvis; I12.0 Hypertensive chronic kidney disease with stage 5 chronic kidney disease or end stage renal disease; E03.9 Hypothyroidism, unspecified; E78.5 Hyperlipidemia, unspecified; M10.9 Gout, unspecified; E11.22 Type 2 diabetes mellitus with diabetic chronic kidney disease; G89.29 Other chronic pain; R94.31 Abnormal electrocardiogram [ECG] [EKG]; N26.1 Atrophy of kidney (terminal); N28.1 Cyst of kidney, acquired; E11.40 Type 2 diabetes mellitus with diabetic neuropathy, unspecified; N18.6 End stage renal disease; Z99.2 Dependence on renal dialysis; Z90.5 Acquired absence of kidney; Z79.82 Long term (current) use of aspirin; Z79.899 Other long term (current) drug therapy; Z88.8 Allergy status to other drugs, medicaments and biological substances
CPT/HCPCS: 36415; 36416; 36430; 51701; 71045; 74177; 80048; 80053; 81003; 81015; 82274; 82553; 83690; 84484; 85025; 85610; 85730; 86850; 86900; 86901; 87340; 90935; 93005; 96365; 96366; G0257; J7050; P9016; Q5105; Q9967; U0002

== ENCOUNTER 2020-04-26 10:09 | Inpatient (IN) | payer MEDICARE, OTHER ==
[2020-04-26] MEDS ORDERED: Dextrose 50% Abboject 50 ML SYRINGE ONE (10:26)
[2020-04-26] MEDS ORDERED: Dextrose 10% in Water 1,000 ML IV SCH ×2 (11:00→14:41)
[2020-04-26 11:11] LABS: ALT (SGPT) 14 U/L (8-55); AST (SGOT) 19 U/L (5-34); Albumin 4.2 g/dL (3.4-4.8); Alkaline Phosphatase 115 U/L (40-110); Anion Gap 14 mmol/L (10-20); BUN (Urea Nitrogen) 39 mg/dL (8.4-25.7); Bilirubin, Total 0.5 mg/dL (0.2-1.2); Calc. Creatinine Clearance 0 mL/min (70-130); Calcium 9.5 mg/dL (7.8-10.44); Carbon Dioxide 32 mmol/L (23-31); Chloride 97 mmol/L (98-107); Globulin 3.1 g/dL (2.4-3.5); Glucose 192 mg/dL (83-110); Potassium 3.8 mmol/L (3.5-5.1); Protein, Total 7.3 g/dL (5.8-8.1); Sodium 139 mmol/L (136-145)
[2020-04-26 11:18] LABS: #Eosinphils 0.1 thou/uL (0.0-0.7); #Lymphocytes 0.5 thou/uL (1.20-3.40); #Monocytes 0.4 thou/uL (0.11-0.59); #Neutrophils 3.8 thou/uL (1.40-6.50); %Basophils 0.9 % (0.0-1.0); %Eosinophils 2.5 % (0.0-10.0); %Lymphocytes 10.5 % (21.0-51.0); %Monocytes 7.4 % (0.0-10.0); %Neutrophils 78.7 % (42.0-75.0); Hemoglobin 11.6 g/dL (14.0-18.0); MDiff Complete? YES; Mean Corpuscular HGB CONC 33.1 g/dL (32.0-36.0); Mean Corpuscular Volume 99.6 fL (78.0-98.0); Mean Platelet Volume 8.4 fL (7.4-10.4); Platelet Count 101 thou/uL (130-400); Platelet Morphology Comment Appears Decreased; RBC Distribution Width 13.3 % (11.5-14.5); Red Blood Cell (RBC) Count 3.51 mill/uL (4.70-6.10); White Blood Cell (WBC) Count 4.8 thou/uL (4.8-10.8)
[2020-04-26] MEDS ORDERED: Senokot S 8.6-50 MG TAB PO PRN (14:54)
[2020-04-26] MEDS ORDERED: Heparin 5,000 UNITS/ML VIAL SC SCH (15:00)
[2020-04-26 15:07] LABS: Hemoglobin A1c 4.5 % (4.0-6.0)
[2020-04-26 15:28] LABS: CKMB 1.8 ng/mL (0-6.6)
--- NOTE | 2020-04-26 17:26 | HP ---
PRIMARY CARE PHYSICIAN: Osmany Enamorado MD REMITTANCE CLERK: Dr. Kang. CHIEF COMPLAINT: Altered mental status, right-sided weakness, some aphasia. HISTORY OF PRESENT ILLNESS: Mr. Bonilla is a very pleasant 85-year-old man who reported to the emergency room today from home when his called 911 after he was having some stroke-like symptoms. He has a past medical history pertinent for hypertension, end-stage renal disease, diabetes. He went to bed this last night with his usual state of health, but when he woke up at 8 this morning, he was feeling generally weak. He tried to get out of bed, but felt too weak to do that. His found him in bed and activated the EMS. says that he took his home medications this morning around 9:00 a.m., which included extended-release Glucotrol. When EMS arrived, the patient was having some difficulty speaking with right-sided weakness. The [id number]-[id number] glucose at the scene was 44. EMS gave him 25 g of oral glucose, started D10 drip, and noted that he had some prompt resolution of the slurred speech and right-sided weakness. He was brought into the emergency room today and was evaluated. His sodium was 139, potassium 3.8, chloride 97, carbon dioxide 32, BUN is 39, creatinine is 6.46, glucose has fluctuated today after he received the glucose, and has been on the drip, highest was 247 at 1511 hours. He was given some another amp of D50 and then the D10 was continued. Since his sugar has resolved, he is alert and oriented to person, place, and time. He is conversant. His right-sided weakness has resolved. Dr. Kang was consulted with Dr. Gutierrez, who stated that if he did emergent dialysis, it would not pull the Glucotrol out of his system and that he would arrange for dialysis as scheduled tomorrow, and he will be admitted for observation and medication changes. REVIEW OF SYSTEMS: The patient initially reported right-sided weakness and some aphasia. This has since resolved. He reports generalized weakness prior to finding out his blood sugar was low. He denied any chest pain, abdominal pain, nausea, vomiting, or diarrhea. All systems are reviewed and are negative unless mentioned above or in the HPI. ALLERGIES: TO JUAN ANTONIO INHIBITORS. CURRENT MEDICATIONS: Which need to be reconciled: 1. Allopurinol 100 mg p.o. daily. 2. Amlodipine 10 mg p.o. daily. 3. Atarax 10 mg p.o. b.i.d. 4. Dulcolax 100 mg p.o. b.i.d. 5. Glucotrol XL half tablet b.i.d. with meals. This will be held. 6. Hydralazine 50 mg p.o. t.i.d. 7. Lyrica 75 mg p.o. daily. 8. vitamin 1 tablet p.o. daily. 9. Vitamin B tablet one capsule p.o. daily. 10. Levothyroxine 50 mcg p.o. daily. 11. Velphoro 500 mg p.o. t.i.d. 12. Ascorbic acid 500 mg p.o. daily. 13. Zocor 20 mg p.o. at bedtime. 14. Losartan 50 mg p.o. daily. PAST MEDICAL HISTORY: Hypothyroidism; kidney cancer; end-stage renal and gets dialysis Monday, Monday, Monday; hypertension. PAST SURGICAL HISTORY: Right kidney removed, hernia repair. SOCIAL HISTORY: Denies alcohol or drug use. Chews tobacco. PHYSICAL EXAMINATION: VITAL SIGNS: Blood pressure is 138/67, pulse is 57, respiratory rate is 18, temperature is 97.4, O2 saturations are 98% on room air. CONSTITUTIONAL: He is alert and oriented, is in no apparent distress. HEENT: Head is atraumatic and normocephalic. Eyes, pupils are equal, round, and reactive to light. ENT, mouth exam is normal. Mucous membranes are moist. RESPIRATORY: Chest breath sounds are clear. Chest movement is symmetrical. CARDIOVASCULAR: Regular heart rate and rhythm. Heart sounds are normal. ABDOMEN: Nontender. Bowel sounds are heard. BACK: Full range of motion. No tenderness. EXTREMITIES: Upper extremity, radial pulses are normal. NEUROLOGIC: The patient is oriented to person, place, and time. Speech is normal. No motor focal deficits. SKIN: Warm, dry, normal in color. PSYCHIATRIC: He is oriented to person, place, and time. Has a normal affect. LABORATORY DATA: EKG in the emergency room shows beats per minute 60, first- degree AV block, flattened T-waves in lateral leads. PLAN AND ASSESSMENT: 1. Acute metabolic encephalopathy due to hypoglycemia; resolved 2. Hypoglycemia. The patient gets long-acting Glucotrol b.i.d. We will hold that for now. Q.2 hour blood sugar checks for 6 hours and then can go to every 4 hours. D10 at 75 mL per hour. Can hold for blood sugar over 150 x1 hour and then recheck the glucose. We will add sliding scale as needed for coverage. We will hold all insulin for now until he stabilizes with his sugar. 3. End-stage renal disease, on dialysis. Dr. Kang has been consulted. He is aware the patient is here and will need that dialysis. 4. History of hypertension. We will restart his home medications once reconciled. 5. History of hypothyroidism. We will go ahead and restart his levothyroxine. 6. History of hyperlipidemia. We will restart his Zocor. 7. SCD for deep venous thrombosis prevention. Pepcid 20 mg p.o. b.i.d. for peptic ulcer disease prevention. Plan discussed with Dr. Gutierrez who agrees. Hospital course dependent on clinical findings. Job ID: [id number] JUWAN
[2020-04-26] MEDS: Dextrose 10% in Water 1,000 ML IV SCH (18:39)
[2020-04-27 05:08] LABS: Anion Gap 14 mmol/L (10-20); BUN (Urea Nitrogen) 45 mg/dL (8.4-25.7); Calc. Creatinine Clearance 10 mL/min (70-130); Calcium 8.8 mg/dL (7.8-10.44); Carbon Dioxide 30 mmol/L (23-31); Chloride 96 mmol/L (98-107); Glucose 171 mg/dL (83-110); Potassium 4.3 mmol/L (3.5-5.1); Sodium 136 mmol/L (136-145)
[2020-04-27 05:24] LABS: #Eosinphils 0.4 thou/uL (0.0-0.7); #Lymphocytes 1.3 thou/uL (1.20-3.40); #Monocytes 0.5 thou/uL (0.11-0.59); #Neutrophils 3.4 thou/uL (1.40-6.50); %Basophils 0.6 % (0.0-1.0); %Eosinophils 6.6 % (0.0-10.0); %Lymphocytes 22.9 % (21.0-51.0); %Monocytes 9.5 % (0.0-10.0); %Neutrophils 60.4 % (42.0-75.0); Hemoglobin 9.7 g/dL (14.0-18.0); Mean Corpuscular HGB CONC 33.5 g/dL (32.0-36.0); Mean Corpuscular Hemoglobin 33.3 pg (27.0-31.0); Mean Corpuscular Volume 99.6 fL (78.0-98.0); Mean Platelet Volume 8.9 fL (7.4-10.4); Platelet Count 98 thou/uL (130-400); RBC Distribution Width 13.2 % (11.5-14.5); Red Blood Cell (RBC) Count 2.91 mill/uL (4.70-6.10); White Blood Cell (WBC) Count 5.6 thou/uL (4.8-10.8)
[2020-04-27] MEDS: Famotidine 20 MG TAB PO SCH (08:58)
--- NOTE | 2020-04-27 09:17 | CON ---
DATE OF CONSULTATION: 04/27/2020 HISTORY OF PRESENT ILLNESS: Mr. Bonilla is an 85-year-old white male with ESRD-on maintenance hemodialysis Monday, Monday, Monday and was initially admitted due to confusion and some aphasia. He was found to be hypoglycemic. He was given one ampule of D50 and at the same time, he was started on D10 water. Blood sugar is much improved. His mentation is also much improved and his aphasia is resolved. We are being consulted for management of his ESRD. He is currently undergoing hemodialysis today. No other complaints. The patient denies any chest pain or shortness of breath. REVIEW OF SYSTEMS: No chest pain. No shortness of breath. Positive for confusion. Positive for motor weakness. No nausea. No vomiting. No fever or chills. No hematochezia. No melena. No hematemesis. No abdominal pain. Appetite and energy level are fair. No headache. No sore throat. MEDICATIONS: The patient is currently on, 1. Acetaminophen p.r.n. 2. D10 water at 75 mL/h. 3. Famotidine 20 mg once a day. Home medications included the following, 1. Allopurinol 100 mg once a day. 2. Amlodipine 10 mg daily. 3. Losartan 50 mg daily. 4. Ascorbic acid one tab daily. 5. Lyrica 75 mg daily. 6. Zocor 20 mg at bedtime. 7. Velphoro 500 mg p.o. t.i.d. 8. Vitamin B complex. 9. Glipizide 2.5 mg p.o. b.i.d. 10. Hydralazine 50 mg p.o. t.i.d. 11. Minoxidil 5 mg tablet once a day? PAST MEDICAL HISTORY: 1. 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 2. Neuropathy. 3. Longstanding hypertension. 4. Gout. 5. Type 2 diabetes mellitus. 6. Hyperlipidemia. 7. Hyperphosphatemia. 8. Chronic pruritus. 9. DJD. 10. Hypothyroidism. PAST SURGICAL HISTORY: Status post right nephrectomy for renal cancer, status post inguinal hernia repair, status post hiatal hernia repair, status post cuffed hemodialysis catheter placement, status post AV fistula placement, status post PD catheter placement with subsequent removal. SOCIAL HISTORY: The patient lives in [place], , several children. No smoking or alcohol intake. Sedentary lifestyle. Status post blood transfusion. No IV drug use. FAMILY HISTORY: No family history of ESRD. ALLERGIES: ? OF JUAN ANTONIO INHIBITORS. TRAUMA: None. IMMUNIZATION: Up-to-date. HOSPITALIZATIONS: Please see past medical history. PHYSICAL EXAMINATION: VITAL SIGNS: Blood pressure 131/58, heart rate 71, respiratory rate 16, temperature 98.5, O2 saturation 90% on room air. GENERAL: Awake, alert, not in distress, comfortable. SKIN: Adequate turgor. HEENT: Slightly pale conjunctivae. Anicteric sclerae. NECK: No neck mass. No carotid bruits. No JVD. CHEST: No deformities. LUNGS: Clear breath sounds. HEART: Normal sinus rhythm. No murmur. No gallops. No rubs. ABDOMEN: Globular, soft, nontender. No masses. EXTREMITIES: No edema. No deformities. LABORATORY DATA: Laboratories of April 27, 2020, white count 5.6, hemoglobin 9.7. Sodium 136, potassium 4.3, chloride 96, carbon dioxide 30, BUN 45, creatinine 3.25, glucose 171, calcium 8.8. ASSESSMENT AND PLAN: 1. Hypoglycemia, resolved with D10 and D50. We will liberalize his diet. In addition, he is off his glipizide. 2. End-stage renal disease, stable. We will continue current Monday, Monday, and Monday hemodialysis regimen. Fluid removal only as tolerated. Using [id number] heparin at the present time. 3. Hypertension, stable. Continue current antihypertensive regimen. Recheck CBC, base met if the patient is still here tomorrow. Job ID: [id number]
[2020-04-27 12:48] LABS: SARS-CoV-2 PCR NAA for Saliva Not Detected (NotDetected)
[2020-04-27 14:09] VITALS: BMI 27.6
--- NOTE | 2020-04-27 14:17 | PQF ---
[id number] [facility] Updated: CLINICAL DOCUMENTATION CLARIFICATION FORM: Dear : STEVAN Sim, Date / Time: 04/27/2020 2:01 PM Please exercise your independent, professional judgment in responding to the clarification form. Clinical indicators are provided on the bottom of this form for your review Please check appropriate box(es): [ x] Encephalopathy: Type: [ x] Acute [ ] Subacute [ ] Chronic Etiology: [ xx] Metabolic [ ] Drug induced [ ] In the setting of underlying dementia [ ] Unspecified [ ] Other (please specify) [ ] Transient Alteration of Awareness [ ] Other diagnosis [ ] Unable to determine In addition, please specify: Resolved by the time he was admitted. I added to H&P Present on Admission (POA): [ ] Yes [x ] No [ ] Unable to determine To be completed by CDI/Coding staff for physician review: Present Clinical Indicators - Signs / Symptoms / Labs Results and Location in Medical Record [x ] Altered mental status / confusion (i.e.: improving once underlying cause is corrected) positive for confusion per 04/27 CN(Kang) [x ] Metabolic / electrolyte abnormality sugar 44 per 04/26 triage notes ED(Geon) Present Risk Factors Results and Location in Medical Record [ x ] DKA or hypoglycemia Hypoglycemia per 04/26 H&P(OBriant) [x] says that he took his home medications this morning around 9:00 am, which included extended release Glucotrol 04/26 H&P(OBriant) Present Treatments Results and Location in Medical Record [ x ] Underlying cause corrected, encephalopathy resolved D50W 1 amp then D10 at 75 04/26 per orders [x ] Serial BMP 04/27 per orders CDS/Paint Striping Machine Operator Signature: Meeta Paniagua RN, CCDS Phone #: [phone] Date/Time: 04/27/2020 2:16 PM This is a permanent part of the Medical Record MTDD
--- NOTE | 2020-04-27 16:27 | PDOC.HOSPP ---
- Subjective Encounter Date: 04/27/20 Subjective: Patient seen by me today during dialysis. He was alert and awake. I also talked to him late afternoon with his at bedside. Mental status was at baseline. They are hesitant to leaving the edition evening due to heavy rain. - Objective Vital Signs & Weight: Vital Signs (12 hours) Temp Pulse Pulse Pulse Resp BP BP 04/27/20 13:44 83 75 169/74 H 173/73 H 04/27/20 09:00 97.6 F 68 18 BP Pulse Ox 04/27/20 13:44 04/27/20 09:00 166/66 H 98 Weight Admit Weight 198 lb Weight 198 lb I&O: 04/26/20 04/27/20 04/28/20 06:59 06:59 06:59 Intake Total 600 Output Total 280 Balance 320 Result Diagrams: 04/27/20 04:17 04/27/20 04:17 Additional Labs: Accuchecks 04/27/20 04/27/20 04/26/20 04:01 00:12 22:11 POC Glucose 173 H 162 H 128 H 04/26/20 04/26/20 04/26/20 19:29 16:37 11:24 POC Glucose 153 H 196 H 111 H 04/26/20 10:25 POC Glucose 45 L* Hospitalist ROS - Medication Medications: Active Medications Generic Name Dose Route Start Last Admin Trade Name Freq PRN Reason Stop Dose Admin Famotidine 20 mg 04/27/20 09:00 04/27/20 08:58 Famotidine 20 Mg Tab PO Not Given DAILY DEIDRE Dextrose/Water 1,000 mls @ 30 mls/hr 04/26/20 18:01 04/26/20 18:39 Dextrose 10% In Water IV 1,000 mls .Q24H DEIDRE Administration Sodium Chloride 10 ml 04/26/20 21:00 04/27/20 08:58 Flush - Normal Saline 10 Ml Syringe IVF Not Given Q12HR DEIDRE Hospitalist Exam Vitals: Vital Signs (12 hours) Temp Pulse Pulse Pulse Resp BP BP 04/27/20 13:44 83 75 169/74 H 173/73 H 04/27/20 09:00 97.6 F 68 18 BP Pulse Ox 04/27/20 13:44 04/27/20 09:00 166/66 H 98 Weight Admit Weight 198 lb Weight 198 lb General Appearance: NAD Eye: anicteric sclera Eye - other findings: Bilateral eye watery discharge ENT: normocephalic atraumatic Heart: RRR Respiratory: CTAB, no wheezes, no rales, no ronchi Gastrointestinal: soft, non-tender, non-distended Extremities: no edema Neurological: cranial nerve grossly intact Psychiatric: normal affect, normal behavior Hosp A/P (1) Acute metabolic encephalopathy Code(s): G93.41 - METABOLIC ENCEPHALOPATHY Status: Acute (2) Hypoglycemia Code(s): E16.2 - HYPOGLYCEMIA, UNSPECIFIED Status: Acute (3) End stage renal disease on dialysis Code(s): N18.6 - END STAGE RENAL DISEASE; Z99.2 - DEPENDENCE ON RENAL DIALYSIS Status: Acute (4) Renal cell carcinoma of right kidney Code(s): C64.1 - MALIGNANT NEOPLASM OF RIGHT KIDNEY, EXCEPT RENAL PELVIS Status: Acute - Plan Assessment Patient is a 85-year-old male with a past medical history of ESRD on hemodialysis and hypertension. He was brought in by EMS following an episode of altered mental status. Was hypoglycemic on site with blood glucose of 44. Patient apparently takes glipizide. His mental status returned to normal limits after normalization of his blood sugar. He underwent hemodialysis while in- house. There was a concern for heart block as well. Serial EKG revealed evidence of first-degree heart block. Acute metabolic encephalopathy Hypoglycemia First-degree heart block ESRD on hemodialysis Hypertension Hypothyroidism Plan: Continue dialysis while in-house Discontinue glipizide First-degree heart block noted on serial EKGs. No need to consult cardiology. I plan to discharge the patient tomorrow
--- NOTE | 2020-04-27 17:16 | CON ---
DATE OF CONSULTATION: 04/27/2020 REASON FOR CONSULTATION: Possible heart block. PRIMARY PARTICIPANT ADMINISTRATOR: He does not have a primary scraper hand. HISTORY OF PRESENT ILLNESS: Mr. Bonilla is a pleasant 85-year-old male with a known history of end-stage renal disease, type 2 diabetes, who was brought into the emergency room by ambulance after he woke up Monday morning and was confused and had some reported stroke-like symptoms such as difficulty speaking and right-sided weakness. His blood glucose level was found to be 44. He was given some oral glucose and his symptoms started to resolve. Upon arrival to the ER, his EKG was found to be in first-degree AV block, so Cardiology was consulted. He has not seen a scraper hand in the past and denies any type of cardiology workup in the past. He states that he gets EKGs regularly with his primary care doctor and has never been told he has any abnormalities on his EKG. PAST MEDICAL HISTORY: Hypothyroidism; kidney cancer with a right nephrectomy; end-stage renal disease, he does have dialysis Monday, Monday, and Monday. He also has had a right nephrectomy and a hiatal hernia repair. SOCIAL HISTORY: He is , with children. Denies any tobacco, alcohol, or illicit drug use. FAMILY HISTORY: His mother had multiple myeloma. Father had hypertension. His brother did have coronary artery disease with a CABG. CURRENT LABORATORY DATA: White blood cells 5.6, hemoglobin 9.7, hematocrit 29.0, platelet count is 98. Sodium 136, potassium 4.3, BUN is 45, creatinine is 7.25, glucose is 171. ALLERGIES: HE IS ALLERGIC TO JUAN ANTONIO INHIBITORS. REVIEW OF SYSTEMS: CONSTITUTIONAL: He did initially come in with some confusion and right-sided weakness, which has since resolved. HEENT: He denies any headache, vision changes, hearing loss, tinnitus, vertigo, or nosebleeds. PULMONARY: He denies any wheezing, shortness of breath, asthma, or smoking. CARDIAC: He denies any cardiac symptoms such as palpitations, chest pain, chest pressure, orthopnea, PND, shortness of breath, dyspnea on exertion, or dizziness. GASTROINTESTINAL: He denies any dysphagia, abdominal pain, or change in bowel habits. MUSCULOSKELETAL: He denies any joint swelling or joint pain. NEUROLOGIC: He denies any seizures or syncope. His weakness has since resolved. PHYSICAL EXAMINATION: VITAL SIGNS: His blood pressure is 169/74, his heart rate is 83, his temperature is 97.6 degrees Fahrenheit, 18 respirations a minute, and he is 98% on room air. HEENT: Normocephalic and atraumatic. His carotids are 2+. I do not hear any carotid bruits. CHEST: Clear to auscultation anteriorly and posteriorly throughout. No rales, wheezes, or rhonchi auscultated. CARDIOVASCULAR: Revealed a regular rate and rhythm. Normal S1 and S2. I do not hear an S4 or S3. I do not hear any significant murmurs, heaves, thrills, or rubs. ABDOMEN: Soft and nontender. Bowel sounds present x4. No hepatosplenomegaly palpated. No tenderness to palpation. EXTREMITIES: No cyanosis, no clubbing, and no edema noted. His bilateral popliteal, dorsalis pedis, and posterior tibial pulses are 2+ and equal. DIAGNOSTIC STUDIES: His EKG does reveal first-degree AV block with intermittent bradycardia. He was found to go into severe bradycardia during dialysis. His heart rate was in 30s and 40s. He was asymptomatic at this time. IMPRESSION AND PLAN: 1. First-degree atrioventricular block. At this time, he remains asymptomatic. We will continue to monitor this throughout his hospital stay. We could also possibly put a heart monitor on him once he is discharged to see if he has any EKG changes. 2. Bradycardia. He does have a history of bradycardia during dialysis. He says that this has been an ongoing problem for him. He remains asymptomatic and we will continue the monitor. 3. Hypoglycemia. This has been resolved and treated by the primary care services. 4. End-stage renal disease. He is on dialysis. He gets dialysis Monday, Monday, and Monday. He did have dialysis today with [address] Kang has been consulted. 5. History of hypothyroidism. He is on levothyroxine for this. 6. History of hyperlipidemia. He is on Zocor for this. 7. History of hypertension. At this time, we will continue to monitor the patient throughout his hospital stay. I will also consult with Dr. Franco and review the EKG for any EKG changes. Thank you for the consult. Job ID: [id number] [facility]
[2020-04-27] MEDS: Dextrose 10% in Water 1,000 ML IV SCH (18:01)
[2020-04-28 04:45] LABS: #Basophils 0.1 thou/uL (0.0-0.2); #Eosinphils 0.3 thou/uL (0.0-0.7); #Lymphocytes 1.8 thou/uL (1.20-3.40); #Monocytes 0.6 thou/uL (0.11-0.59); %Eosinophils 4.9 % (0.0-10.0); %Lymphocytes 30.9 % (21.0-51.0); %Monocytes 10.2 % (0.0-10.0); Hemoglobin 9.5 g/dL (14.0-18.0); Mean Corpuscular HGB CONC 33.8 g/dL (32.0-36.0); Mean Corpuscular Hemoglobin 33.7 pg (27.0-31.0); Mean Corpuscular Volume 99.8 fL (78.0-98.0); Mean Platelet Volume 9.1 fL (7.4-10.4); Platelet Count 94 thou/uL (130-400); RBC Distribution Width 12.8 % (11.5-14.5); White Blood Cell (WBC) Count 5.7 thou/uL (4.8-10.8)
[2020-04-28 04:58] LABS: Anion Gap 11 mmol/L (10-20); BUN (Urea Nitrogen) 28 mg/dL (8.4-25.7); Calc. Creatinine Clearance 14 mL/min (70-130); Calcium 8.7 mg/dL (7.8-10.44); Carbon Dioxide 30 mmol/L (23-31); Chloride 97 mmol/L (98-107); Glucose 120 mg/dL (83-110); Potassium 3.8 mmol/L (3.5-5.1); Sodium 134 mmol/L (136-145)
--- NOTE | 2020-04-28 06:44 | CON ---
DATE OF CONSULTATION: 04/27/2020 ADDENDUM: To the Cardiology consult note. Please refer the notes already dictated by my nurse practitioner, Kim Lopez. INDICATION FOR CONSULTATION: An 85-year-old patient with end-stage renal disease, on hemodialysis; type 2 diabetes. He apparently woke up on Monday morning and he was found to have severe hypoglycemia. He was brought to the emergency room. He was noted to have a first-degree AV heart block. He then was admitted to the hospital. He has not seen a hand mexican food maker previously, but he has been known to have bradycardia during dialysis in the past, and he has been relatively asymptomatic and he remains asymptomatic with the bradycardia. It is somewhat difficult to determine all the rhythms. He certainly has a first-degree AV heart block; at times, he has a second-degree type 1; and at other times, it looks like this may be a second-degree type 2. We will discuss this with the label stamper for further clarification, but at this time, he remains asymptomatic. We will continue to just monitor the patient. He said that this happens mainly during dialysis, but he did do it here in the hospital, and his laboratory data did not indicate any specific reason as to why he may have become bradycardic. His potassium is stable, his creatinine, however, was 7.2 but he does undergo dialysis. There have been no other significant abnormalities that I can determine from the laboratory data that would have caused him to be bradycardic, but this is a known phenomenon in this patient. I did discuss with him the possibility about possible pacemaker; however, we are very reluctant to place pacemakers in patients on hemodialysis due to the high risk of endocarditis. If he remains asymptomatic, we would continue the present management. We will discuss this case with Dr. Kang. We will also discuss with the label stamper about future monitoring of the patient's bradycardia. He may need to have an implantable device, but again would be not as prone to have endocarditis if he has an implantable loop recorder as he would obviously with a pacemaker. As far as his past medical history, social history, family history,review of systems, medications, allergies, laboratory data, please refer to the notes dictated by the nurse practitioner. PHYSICAL EXAMINATION: GENERAL: The patient is alert. He is oriented. VITAL SIGNS: Blood pressure is elevated at 169/74. His heart rate is in the 60s; at this time, it is relatively regular with occasional ectopy. He is afebrile. Respiratory rate was 18. HEENT: Unremarkable. CHEST: Clear to auscultation. CARDIOVASCULAR EXAM: Was noted. There was a regular rhythm with occasional ectopy. He has a soft systolic murmur at the apex. I do not see any abnormalities on the cardiac evaluation. ABDOMEN: Unremarkable. He does have a fistula in the right upper arm for his dialysis. EXTREMITIES: Showed no significant clubbing, cyanosis, or edema. He did have some minimal mild ankle edema. Pedal pulses are present. NEUROLOGIC: The patient appears to be fully intact. IMPRESSION: Is as above. We will continue to monitor the patient very carefully. Should he need to have pacemaker insertion, this obviously would be advised, but at this time, I do not see that he meets the criteria for pacemaker insertion in this patient who is on hemodialysis. We will discuss his tracings with the label stamper and will discuss with Dr. Kang also about the degree of bradycardia that he has during dialysis and whether or not he is indeed symptomatic or not. For his other medical problems, please refer to the notes already dictated and they will be dealt with by the primary care service. Also, we will obtain an echocardiogram if one has not been performed. Job ID: [id number]
[2020-04-28] MEDS: Famotidine 20 MG TAB PO SCH (08:26)
[2020-04-28] MEDS ORDERED: Epoetin (ESRD) 20,000 UNITS/ML SC SCH (08:45)
--- NOTE | 2020-04-28 09:04 | PRG ---
DATE OF SERVICE: 04/28/2020 SUBJECTIVE: Mr. Bonilla is an 85-year-old white male, who was initially admitted for hypoglycemia. We are following up this patient for management of his ESRD. He underwent hemodialysis yesterday without any difficulty. He was also seen by Cardiology due to issues about his bradycardia. He does have a first-degree AV block. He has also may have a second-degree AV block type 1 versus type 2. Cardiology is currently evaluating this. This morning, he voices no new complaints. He denies any chest pain or shortness of breath. OBJECTIVE: VITAL SIGNS: Blood pressure is 131/87, heart rate 64, respiratory rate is 18, temperature 97.4, O2 saturations 93%. GENERAL: The patient is awake, alert, comfortable, not in overt distress. SKIN: Adequate turgor. HEENT: He has a slightly pale conjunctivae. Anicteric sclerae. No neck mass. No carotid bruits. No JVD. CHEST: No deformities. LUNGS: Clear breath sounds. No wheezing. No crackles. HEART: Normal sinus rhythm. No murmur. No gallops. No rubs. ABDOMEN: Globular, soft, nontender. No masses. EXTREMITIES: No edema. No deformities. MEDICATIONS: Medications of April 28, 2020, was reviewed. LABORATORY DATA: Laboratories of April 28, 2020; white count 5.7, hemoglobin 9.5. Sodium 134, potassium 3.8, chloride 97, carbon dioxide 24, BUN 28, creatinine 4.92, calcium 8.7. ASSESSMENT AND PLAN: 1. Bradycardia-Cardiology is evaluating this patient. ? of a possible pacemaker in the near future. 2. Anemia. We will start Epogen 7500 units subcu every week. 3. End-stage renal disease, stable, tolerating current hemodialysis regimen. Fluid removal was tolerated by the patient yesterday. Continue Monday, Monday, and Monday dialysis. I do not find any indication for any emergent hemodialysis today. The patient looks euvolemic and potassium is acceptable. Job ID: [id number] MTDD
[2020-04-28] MEDS ORDERED: EPOETIN ALFA-EPBX (ESRD) 4,000 UNIT/ML VIAL SC SCH (12:00)
--- NOTE | 2020-04-28 13:39 | PDOC.CPN ---
- Subjective Date: 04/28/20 Time: 13:37 Interval history: Patient resting in bed, he denies any complaints today. He does state that he has been off of his home BP medications since being in the hospital. His BP has been elevated today but he denies any headaches, dizziness, or blurry vision tod ay. He cannot recall the names of his medications but states that his did bring them to the ER when he was initially admitted to the hospital. He denies any chest pain, palpitations, shortness of breath today. He is asking when he can go home. - Review of Systems General: denies: fever/chills, weight/appetite/sleep changes, night sweats, fatigue Respiratory: denies: cough, congestion, shortness of breath, exercise intolerance Cardiovascular: denies: chest pain, palpitation, edema, paroxysmal nocturnal dyspnea, orthopnea Gastrointestinal: denies: nausea, vomiting, diarrhea, constipation, abd pain, GI bleeding Musculoskeletal: denies: pain, tenderness, stiffness, swelling, arthritis/arthralgias Neurological: denies: numbness, syncope, seizure, weakness - Objective Allergies/Adverse Reactions: Allergies Allergy/AdvReac Type Severity Reaction Status Date / Time JUAN ANTONIO Inhibitors Allergy Verified 01/20/20 16:15 Visit Medications: Current Medications Acetaminophen (Acetaminophen 325 Mg Tab) 650 mg PO Q4H PRN PRN Reason: Headache/Fever/Mild Pain (1-3) Epoetin Geraldo-epbx (Epoetin Geraldo-Epbx (Esrd) 4,000 Unit/Ml Vial) 7,500 unit SC Q7D [facility] Famotidine (Famotidine 20 Mg Tab) 20 mg PO DAILY [facility] Last Admin: 04/28/20 08:26 Dose: 20 mg Documented by: Dextrose/Water (Dextrose 10% In Water) 1,000 mls @ 30 mls/hr IV .Q24H [facility] Last Admin: 04/27/20 18:01 Dose: Not Given Documented by: Senna/Docusate Sodium (Senokot S 8.6-50 Mg Tab) 2 tab PO BIDPRN PRN PRN Reason: Constipation Sodium Chloride (Flush - Normal Saline 10 Ml Syringe) 10 ml IVF Q12HR [facility] Last Admin: 04/28/20 08:26 Dose: 10 ml Documented by: Sodium Chloride (Flush - Normal Saline 10 Ml Syringe) 10 ml IVF PRN PRN PRN Reason: Saline Flush Vital Signs & Weight: Vital Signs Temp Pulse Pulse Pulse Pulse Resp BP 04/28/20 12:00 97.9 F 66 16 04/28/20 10:38 65 55 L 63 04/28/20 08:00 98.1 F 69 16 04/28/20 03:20 97.4 F L 64 18 131/87 BP BP BP BP Pulse Ox 04/28/20 12:00 170/75 H 95 04/28/20 10:38 171/72 H 196/76 H 185/75 H 04/28/20 08:00 136/63 94 L 04/28/20 03:20 93 L Admit Weight 198 lb Weight 198 lb - Physical Exam General: alert & oriented x3, appears well, no apparent distress HEENT: mucus membranes moist Neck: no JVD/HJR, no bruit Cardiac: regular rate and rhythm, no murmur, S1/S2 Lungs: normal breath sounds, normal exam, no wheeze, rales, rhonchi Neuro: grossly intact, motor function intact Abdomen: active bowel sounds, soft, non-tender Extremities: no cyanosis, no clubbing, no edema, 2+ Posterior Tibial, 2+ Dorsalis Pedus Skin: clear Musculoskeletal: no pain, no fluid collection - Labs Result Diagrams: 04/28/20 04:06 04/28/20 04:06 Troponin/CKMB CK-MB (CK-2) 1.8 ng/mL (0-6.6) 04/26/20 10:43 Troponin I 0.032 ng/mL (< 0.028) H 04/26/20 10:43 - EKG Interpretation EKG Method: Telemetry EKG: sinus rhythm (1st degree AVB HR 50-60's) - Assessment/Plan Assessment/Plan: 1. 1st degree AVB: he continues to have 1st degree AVB, he is asymptomatic, will continue to monitor. 2. 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 Bonilla is having second degree type I and other times it seems as if he is having second degree type II block on his EKG, discussed with Dr. Franco, appreciate Dr. Munoz's input. Possible pacemaker placement was discussed with patient and spouse if he develops EKG changes or becomes symptomatic with bradycardia. 3. Bradycardia: he is known to have asymptomatic bradycardia episodes with dialysis, he did not have any overnight. 4. Hypoglycemia: resolved, treated by primary care services 5. End stage renal disease: treated by primary care and Dr. Kang. He is on hemodialysis MWF 6. History of hypothyroidism 7. Hyperlipidemia 8. Hypertension: per home medication list, he was on Hydralazine 50 mg PO TID, Amlodipine 10 mg PO daily, and Losartan 50 mg PO Daily, will re-start home Hydralazine and continue to monitor Pt. seen and eval. by me. I agree with the a/P by the ADMITTING SUPERVISOR. Also asked EP to see pt. he continues to have pauses but is not on any medication that should cause this. An echo has been ordered but not yet done. If the EF is good then we suggest a pacemaker. The BP is still elevated. I will resume amlodipine and start his home dose of minoxidil. If the EF is reasonable then plan for pacemaker insertion Mon or if the pt. agrees. claudine
[2020-04-28] MEDS: hydrALAZINE 25 MG TAB PO SCH ×2 (16:22→21:08)
[2020-04-28] MEDS: Dextrose 10% in Water 1,000 ML IV SCH (17:31)
--- NOTE | 2020-04-28 17:42 | PDOC.HOSPP ---
- Subjective Encounter Date: 04/28/20 Subjective: Patient is feeling well. Denies any chest pain or dizziness. He is staying an additional day to be evalauted by EP as he was having episodes of first and possibly second degree heart block - Objective Vital Signs & Weight: Vital Signs (12 hours) Temp Pulse Pulse Pulse Pulse Resp BP 04/28/20 16:22 66 04/28/20 16:00 97.5 F L 69 16 04/28/20 12:00 97.9 F 66 16 04/28/20 10:38 65 55 L 63 171/72 H 04/28/20 08:00 98.1 F 69 16 BP BP BP Pulse Ox 04/28/20 16:22 04/28/20 16:00 165/68 H 94 L 04/28/20 12:00 170/75 H 95 04/28/20 10:38 196/76 H 185/75 H 04/28/20 08:00 136/63 94 L Weight Admit Weight 198 lb Weight 198 lb I&O: 04/27/20 04/28/20 04/29/20 06:59 06:59 06:59 Intake Total 600 600 Output Total 280 Balance 320 600 Result Diagrams: 04/28/20 04:06 04/28/20 04:06 Additional Labs: Accuchecks 04/28/20 04/28/20 04/28/20 16:40 13:37 03:47 POC Glucose 111 H 122 H 121 H 04/27/20 20:08 POC Glucose 160 H Hospitalist ROS - Medication Medications: Active Medications Generic Name Dose Route Start Last Admin Trade Name Freq PRN Reason Stop Dose Admin Epoetin Geraldo-epbx 7,500 unit 04/28/20 12:00 04/28/20 16:22 Epoetin Geraldo-Epbx (Esrd) 4,000 Unit/Ml Vial SC 7,500 unit Q7D [facility] Administration Famotidine 20 mg 04/27/20 09:00 04/28/20 08:26 Famotidine 20 Mg Tab PO 20 mg DAILY [facility] Administration Hydralazine HCl 50 mg 04/28/20 15:00 04/28/20 16:22 Hydralazine 25 Mg Tab PO 50 mg TID [facility] Administration Dextrose/Water 1,000 mls @ 30 mls/hr 04/26/20 18:01 04/28/20 17:31 Dextrose 10% In Water IV Not Given .Q24H [facility] Sodium Chloride 10 ml 04/26/20 21:00 04/28/20 08:26 Flush - Normal Saline 10 Ml Syringe IVF 10 ml Q12HR [facility] Administration Hospitalist Exam Vitals: Vital Signs (12 hours) Temp Pulse Pulse Pulse Pulse Resp BP 04/28/20 16:22 66 04/28/20 16:00 97.5 F L 69 16 04/28/20 12:00 97.9 F 66 16 04/28/20 10:38 65 55 L 63 171/72 H 04/28/20 08:00 98.1 F 69 16 BP BP BP Pulse Ox 04/28/20 16:22 04/28/20 16:00 165/68 H 94 L 04/28/20 12:00 170/75 H 95 04/28/20 10:38 196/76 H 185/75 H 04/28/20 08:00 136/63 94 L Weight Admit Weight 198 lb Weight 198 lb General Appearance: NAD, awake alert Eye: anicteric sclera ENT: normocephalic atraumatic Neck: supple Heart: RRR, no murmur Respiratory: CTAB, no wheezes, no rales, no ronchi Gastrointestinal: soft, non-tender, non-distended Extremities: no edema Neurological: cranial nerve grossly intact Psychiatric: normal affect, normal behavior Hosp A/P (1) Acute metabolic encephalopathy Code(s): G93.41 - METABOLIC ENCEPHALOPATHY Status: Acute (2) Hypoglycemia Code(s): E16.2 - HYPOGLYCEMIA, UNSPECIFIED Status: Acute (3) End stage renal disease on dialysis Code(s): N18.6 - END STAGE RENAL DISEASE; Z99.2 - DEPENDENCE ON RENAL DIALYSIS Status: Acute (4) Renal cell carcinoma of right kidney Code(s): C64.1 - MALIGNANT NEOPLASM OF RIGHT KIDNEY, EXCEPT RENAL PELVIS Status: Acute - Plan Assessment Patient is a 85-year-old male with a past medical history of ESRD on hemodialysis and hypertension. He was brought in by EMS following an episode of altered mental status. Was hypoglycemic on site with blood glucose of 44. Patient apparently takes glipizide. His mental status returned to normal limits after normalization of his blood sugar. He underwent hemodialysis while in- house. There was a concern for heart block as well. Serial EKG revealed evid ence of first-degree heart block. Cardiology is also concerned about possible second degree heart block as well, type I & II. Hospital course prolonged until formal evaluation by EP. No metabolic reasons to explain this. He is not on beta blockers. Review of vitals does not show any documented bradycardia. However, it seems like it's occurring during dialysis. Acute metabolic encephalopathy Hypoglycemia First-degree heart block Second degree type I, and possibly type II ESRD on hemodialysis Hypertension Hypothyroidism Plan: EP to assess whether pacemaker will be indicated Avoid any beta blockers BP control. Reconcile home meds and resume norvasc, hydralazine and losartan if BP tolerates Continue dialysis while in-house Discontinue glipizide upon discharge
[2020-04-28] MEDS ORDERED: Amlodipine 10 MG TAB PO SCH (18:12)
[2020-04-28] MEDS ORDERED: Amlodipine 5 MG TAB PO SCH (18:45)
[2020-04-28] MEDS ORDERED: Minoxidil 2.5 MG TAB PO SCH ×2 (19:00)
[2020-04-28] MEDS ORDERED: hydrALAZINE 25 MG TAB PO SCH (19:00)
[2020-04-28] MEDS: Acetaminophen 325 MG TAB PO PRN (21:08)
[2020-04-28] MEDS: Melatonin 3 MG TAB PO PRN (21:09)
[2020-04-28] MEDS: Simvastatin 20 MG TAB PO SCH (21:09)
--- NOTE | 2020-04-29 01:34 | CON ---
DATE OF CONSULTATION: 04/28/2020 REFERRING COILED TUBING SUPERVISOR: Zoey Franco MD. PRIMARY CARE PHYSICIAN: Iker Bennett MD HISTORY OF PRESENT ILLNESS: Mr. Bonilla is a pleasant 85-year-old white male with history of end-stage renal disease on dialysis and type 2 diabetes mellitus. He was at dialysis and had bradycardia and was noted to have Mobitz type 1 AV block. Since admission, he has developed high-grade AV block with 3-second pauses. He has no history of syncope or stroke. He has moderate daily fatigue without exacerbating or alleviating factors. He had no chest discomfort. He has mild daily dyspnea, improved with rest. ALLERGIES: JUAN ANTONIO INHIBITORS. CURRENT MEDICATIONS: Please see list. He is not on AV gian blocking agents. PAST MEDICAL HISTORY: 1. Hypothyroidism. 2. Renal cancer. 3. End-stage renal disease, on dialysis. 4. Hypertension. PAST SURGICAL HISTORY: 1. Left arm fistula for dialysis access. 2. Hernia repair. 3. Right kidney removal. SOCIAL HISTORY: No alcohol or drugs. REVIEW OF SYSTEMS: 12-point review of systems unremarkable. PHYSICAL EXAMINATION: GENERAL: Alert and oriented x4. No apparent distress. Afebrile. VITAL SIGNS: Blood pressure 171/72, pulse 41, respiratory rate 12. HEENT: No lesions. Sclerae clear. SKIN: No lesions. CARDIOVASCULAR: Regular rate and rhythm. No murmurs, gallops, or rubs. LUNGS: Clear to auscultation bilaterally. ABDOMEN: Nontender, nondistended. EXTREMITIES: No cyanosis, clubbing, or edema. IMAGING STUDIES: EKG, sinus bradycardia with UT interval 392 milliseconds and nonspecific T-wave abnormality. IMPRESSION: 1. High-grade atrioventricular block, symptomatic. 2. Hypertension. 3. End-stage renal disease. RECOMMENDATIONS: He has indication for permanent pacemaker implantation. I have recommended a dual-chamber pacemaker implantation prior to discharge. He says he will consider this option and consider tomorrow morning. He will discuss with Dr. Franco. We will observe him on telemetry overnight. We discussed the risk of syncope and adverse events without permanent pacemaker implantation. Job ID: [id number] MTDD
[2020-04-29] MEDS: Levothyroxine Sodium 50 MCG TAB PO SCH (04:56)
--- NOTE | 2020-04-29 08:42 | PRG ---
DATE OF SERVICE: 04/29/2020 SUBJECTIVE: Mr. Bonilla is an 85-year-old white male with ESRD and followed up by the Renal Service for his maintenance hemodialysis. He is currently undergoing hemodialysis. I discussed the case yesterday with Dr. Killian Franco. Due to his sinus grabiel and dropped beats, the patient will have a pacemaker placed. No new complaints today. He is undergoing hemodialysis. No chest pain or shortness of breath. OBJECTIVE: VITAL SIGNS: Blood pressure is 138/66, heart rate 62, respiratory rate 20, temperature 98.7, O2 saturation 95% on room air. GENERAL: Awake, alert, comfortable, not in distress. SKIN: Adequate turgor. HEENT: Pinkish conjunctivae. Anicteric sclerae. NECK: No neck mass. No carotid bruits. No JVD. CHEST: No deformities. LUNGS: Clear breath sounds. No wheezing. No crackles. HEART: Normal sinus rhythm. No murmurs, gallops, or rubs. ABDOMEN: Globular, soft, nontender. No masses. EXTREMITIES: No edema. No deformities. MEDICATIONS: Medications of April 29, 2020, were reviewed. LABORATORIES: On April 28, 2020; white count 5.7, hemoglobin 9.5. Sodium 134, potassium 3.8, chloride 97, carbon dioxide 30, BUN 28, creatinine 4.92, calcium 8.7. On April 29, 2020, glucose 120. ASSESSMENT AND PLAN: 1. End-stage renal disease, stable. We will continue current Monday, Monday, and Monday hemodialysis regimen. Fluid removal as tolerated. 2. Hypertension, stable. Blood pressure medications have been resumed. 3. High-grade AV block with 3-second pauses - the patient has been evaluated by his ping pong table assembler, Dr. Killian Franco and by our cardiac rn staffing, Dr. Eriberto Munoz. Recommendation is a pacemaker placement. 4. He will have the pacemaker placed after dialysis. We will recheck CBC and base met in a.m. Job ID: [id number]
[2020-04-29] MEDS ORDERED: Iopamidol 370 76% 50 ML VIAL FS ONE (10:48)
[2020-04-29] MEDS ORDERED: Midazolam HCl 2 mg/2 ml Vial ONE (12:29)
[2020-04-29] MEDS ORDERED: CEFAZOLIN 1 GM VIAL ONE (12:29)
[2020-04-29] MEDS ORDERED: Gentamicin 80 MG/2 ML VIAL ONE (12:29)
[2020-04-29] MEDS: hydrALAZINE 25 MG TAB PO SCH ×4 (13:46→20:59)
[2020-04-29] MEDS: Famotidine 20 MG TAB PO SCH (13:47)
[2020-04-29] MEDS: Amlodipine 5 MG TAB PO SCH (13:48)
[2020-04-29] MEDS: Losartan 25 MG TAB PO SCH (13:48)
[2020-04-29] MEDS: Pregabalin 75 MG CAP PO SCH (13:49)
[2020-04-29] MEDS: Minoxidil 2.5 MG TAB PO SCH (13:49)
[2020-04-29] MEDS: Stress 600 With Zinc 1 TAB PO SCH (13:50)
[2020-04-29] MEDS: Ascorbic Acid 500 mg Chewable Tablet PO SCH (13:50)
--- NOTE | 2020-04-29 14:38 | RAD ---
EXAM: Chest one view: HISTORY: Post cardiac device placement. COMPARISON: 01/20/2020 FINDINGS: Placement of left ICD. Heart size: Within normal limits. Lungs: Clear of acute process. No evidence for confluent lobar pneumonia, significant pleural effusion, acute edema, or pneumothorax , or other significant acute process. IMPRESSION: No significant acute intrathoracic disease.
[2020-04-29] MEDS: Acetaminophen 325 MG TAB PO PRN ×2 (15:30→21:01)
--- NOTE | 2020-04-29 16:14 | PDOC.HOSPP ---
- Subjective Encounter Date: 04/29/20 Subjective: Patient seen during dialysis. Doing well. No acute events overnight. Is pending pacemaker placement for high-grade heart block. - Objective Vital Signs & Weight: Vital Signs (12 hours) Temp Pulse Resp BP Pulse Ox 04/29/20 14:34 63 04/29/20 13:48 63 04/29/20 13:47 63 04/29/20 13:46 63 04/29/20 13:40 98.0 F 61 16 162/67 H 99 04/29/20 08:00 98.1 F 63 16 134/66 94 L Weight Admit Weight 198 lb Weight 198 lb I&O: 04/28/20 04/29/20 04/30/20 06:59 06:59 06:59 Intake Total 600 1050 Output Total 950 Balance 600 100 Result Diagrams: 04/28/20 04:06 04/28/20 04:06 Additional Labs: Accuchecks 04/29/20 04/28/20 04/28/20 04:59 23:33 20:28 POC Glucose 120 H 117 H 131 H 04/28/20 16:40 POC Glucose 111 H Hospitalist ROS - Medication Medications: Active Medications Generic Name Dose Route Start Last Admin Trade Name Freq PRN Reason Stop Dose Admin Acetaminophen 650 mg 04/26/20 14:54 04/29/20 15:30 Acetaminophen 325 Mg Tab PO 650 mg Q4H PRN Administration Headache/Fever/Mild Pain (1-3) Amlodipine Besylate 5 mg 04/29/20 09:00 04/29/20 13:48 Amlodipine 5 Mg Tab PO 5 mg DAILY [facility] Administration Ascorbic Acid 500 mg 04/29/20 09:00 04/29/20 13:50 Ascorbic Acid 500 Mg Chewable Tablet PO 500 mg DAILY [facility] Administration Epoetin Geraldo-epbx 7,500 unit 04/28/20 12:00 04/28/20 16:22 Epoetin Geraldo-Epbx (Esrd) 4,000 Unit/Ml Vial SC 7,500 unit Q7D [facility] Administration Famotidine 20 mg 04/27/20 09:00 04/29/20 13:47 Famotidine 20 Mg Tab PO 20 mg DAILY [facility] Administration Hydralazine HCl 100 mg 04/29/20 09:00 04/29/20 14:34 Hydralazine 25 Mg Tab PO Not Given TID [facility] Dextrose/Water 1,000 mls @ 30 mls/hr 04/26/20 18:01 04/28/20 17:31 Dextrose 10% In Water IV Not Given .Q24H [facility] Levothyroxine Sodium 50 mcg 04/29/20 06:00 04/29/20 04:56 Levothyroxine Sodium 50 Mcg Tab PO 50 mcg 0600 [facility] Administration Losartan Potassium 50 mg 04/29/20 09:00 04/29/20 13:48 Losartan 25 Mg Tab PO 50 mg DAILY [facility] Administration Melatonin 3 mg 04/28/20 20:58 04/28/20 21:09 Melatonin 3 Mg Tab PO 3 mg HS PRN Administration Insomnia Minoxidil 5 mg 04/29/20 09:00 04/29/20 13:49 Minoxidil 2.5 Mg Tab PO 5 mg DAILY [facility] Administration Multivitamins/Zinc 1 tab 04/29/20 09:00 04/29/20 13:50 Stress 600 With Zinc 1 Tab PO 1 tab DAILY [facility] Administration Pregabalin 75 mg 04/29/20 09:00 04/29/20 13:49 Pregabalin 75 Mg Cap PO 75 mg DAILY [facility] Administration Simvastatin 20 mg 04/28/20 21:00 04/28/20 21:09 Simvastatin 20 Mg Tab PO 20 mg HS [facility] Administration Sodium Chloride 10 ml 04/28/20 21:00 04/29/20 13:51 Flush - Normal Saline 10 Ml Syringe IVF 10 ml Q12HR [facility] Administration Hospitalist Exam Vitals: Vital Signs (12 hours) Temp Pulse Resp BP Pulse Ox 04/29/20 14:34 63 04/29/20 13:48 63 04/29/20 13:47 63 04/29/20 13:46 63 04/29/20 13:40 98.0 F 61 16 162/67 H 99 04/29/20 08:00 98.1 F 63 16 134/66 94 L Weight Admit Weight 198 lb Weight 198 lb General Appearance: NAD, awake alert Eye: anicteric sclera ENT: normocephalic atraumatic Neck: supple Heart: RRR, no murmur Respiratory: CTAB Gastrointestinal: soft, non-tender, non-distended Extremities: no edema Neurological: cranial nerve grossly intact Psychiatric: normal affect, normal behavior Hosp A/P (1) Acute metabolic encephalopathy Code(s): G93.41 - METABOLIC ENCEPHALOPATHY Status: Acute (2) Hypoglycemia Code(s): E16.2 - HYPOGLYCEMIA, UNSPECIFIED Status: Acute (3) End stage renal disease on dialysis Code(s): N18.6 - END STAGE RENAL DISEASE; Z99.2 - DEPENDENCE ON RENAL DIALYSIS Status: Acute (4) Renal cell carcinoma of right kidney Code(s): C64.1 - MALIGNANT NEOPLASM OF RIGHT KIDNEY, EXCEPT RENAL PELVIS Status: Acute - Plan Assessment Patient is a 85-year-old male with a past medical history of ESRD on hemodialysis and hypertension. He was brought in by EMS following an episode of altered mental status. Was hypoglycemic on site with blood glucose of 44. Patient apparently takes glipizide. His mental status returned to normal limits after normalization of his blood sugar. He underwent hemodialysis while in- house. There was a concern for heart block as well. Serial EKG revealed evidence of first-degree heart block. Cardiology consulted for suspicion of second degree heart block as well, type I & II. Pacemaker placed on 04/29/2020 Acute metabolic encephalopathy Hypoglycemia First-degree heart block Second degree type I, and possibly type II ESRD on hemodialysis Hypertension Hypothyroidism Plan: Monitor overnight for complication Discharge tomorrow Medication reconciliation as per current recommendations BP control. Continue dialysis while in-house Discontinue glipizide upon discharge
--- NOTE | 2020-04-29 17:14 | PDOC.CPN ---
- Subjective Date: 04/29/20 Time: 09:00 - Review of Systems General: denies: fever/chills, weight/appetite/sleep changes, night sweats, fatigue Respiratory: denies: cough, congestion, shortness of breath, exercise intolerance Cardiovascular: denies: chest pain, palpitation, edema, paroxysmal nocturnal dyspnea, orthopnea Gastrointestinal: denies: nausea, vomiting, diarrhea, constipation, abd pain, GI bleeding Musculoskeletal: denies: pain, tenderness, stiffness, swelling, arthriti s/arthralgias Neurological: denies: numbness, syncope, seizure, weakness - Objective Allergies/Adverse Reactions: Allergies Allergy/AdvReac Type Severity Reaction Status Date / Time JUAN ANTONIO Inhibitors Allergy Verified 01/20/20 16:15 Visit Medications: Current Medications Acetaminophen (Acetaminophen 325 Mg Tab) 650 mg PO Q4H PRN PRN Reason: Headache/Fever/Mild Pain (1-3) Last Admin: 04/29/20 15:30 Dose: 650 mg Documented by: Amlodipine Besylate (Amlodipine 5 Mg Tab) 5 mg PO DAILY [facility] Last Admin: 04/29/20 13:48 Dose: 5 mg Documented by: Ascorbic Acid (Ascorbic Acid 500 Mg Chewable Tablet) 500 mg PO DAILY [facility] Last Admin: 04/29/20 13:50 Dose: 500 mg Documented by: Epoetin Geraldo-epbx (Epoetin Geraldo-Epbx (Esrd) 4,000 Unit/Ml Vial) 7,500 unit SC Q7D [facility] Last Admin: 04/28/20 16:22 Dose: 7,500 unit Documented by: Famotidine (Famotidine 20 Mg Tab) 20 mg PO DAILY [facility] Last Admin: 04/29/20 13:47 Dose: 20 mg Documented by: Hydralazine HCl (Hydralazine 25 Mg Tab) 100 mg PO TID [facility] Last Admin: 04/29/20 14:34 Dose: Not Given Documented by: Levothyroxine Sodium (Levothyroxine Sodium 50 Mcg Tab) 50 mcg PO 0600 [facility] Last Admin: 04/29/20 04:56 Dose: 50 mcg Documented by: Losartan Potassium (Losartan 25 Mg Tab) 50 mg PO DAILY [facility] Last Admin: 04/29/20 13:48 Dose: 50 mg Documented by: Melatonin (Melatonin 3 Mg Tab) 3 mg PO HS PRN PRN Reason: Insomnia Last Admin: 04/28/20 21:09 Dose: 3 mg Documented by: Minoxidil (Minoxidil 2.5 Mg Tab) 5 mg PO DAILY [facility] Last Admin: 04/29/20 13:49 Dose: 5 mg Documented by: Multivitamins/Zinc (Stress 600 With Zinc 1 Tab) 1 tab PO DAILY [facility] Last Admin: 04/29/20 13:50 Dose: 1 tab Documented by: Pregabalin (Pregabalin 75 Mg Cap) 75 mg PO DAILY [facility] Last Admin: 04/29/20 13:49 Dose: 75 mg Documented by: Senna/Docusate Sodium (Senokot S 8.6-50 Mg Tab) 2 tab PO BIDPRN PRN PRN Reason: Constipation Simvastatin (Simvastatin 20 Mg Tab) 20 mg PO HS [facility] Last Admin: 04/28/20 21:09 Dose: 20 mg Documented by: Sodium Chloride (Flush - Normal Saline 10 Ml Syringe) 10 ml IVF Q12HR [facility] Last Admin: 04/29/20 13:51 Dose: 10 ml Documented by: Sodium Chloride (Flush - Normal Saline 10 Ml Syringe) 10 ml IVF PRN PRN PRN Reason: Saline Flush Vital Signs & Weight: Vital Signs Temp Pulse Resp BP Pulse Ox 04/29/20 16:16 98.4 F 65 16 135/60 98 04/29/20 14:34 63 04/29/20 13:48 63 04/29/20 13:47 63 04/29/20 13:46 63 04/29/20 13:40 98.0 F 61 16 162/67 H 99 04/29/20 08:00 98.1 F 63 16 134/66 94 L Admit Weight 198 lb Weight 198 lb - Physical Exam HEENT: normocephaly Neck: supple neck, no JVD/HJR Cardiac: bradycardia Lungs: clear to auscultation Neuro: grossly intact Abdomen: unremarkable Extremities: no edema - Labs Result Diagrams: 04/28/20 04:06 04/28/20 04:06 Troponin/CKMB CK-MB (CK-2) 1.8 ng/mL (0-6.6) 04/26/20 10:43 Troponin I 0.032 ng/mL (< 0.028) H 04/26/20 10:43 - Telemetry Sinus rhythms and dysrhythmias: other (pauses. occasional 2AVB2) - Assessment/Plan Assessment/Plan: 1. 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 2. 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 Bonilla is having second degree type I and other times it seems as if he is having second degree type II block on his EKG, discussed with Dr. Franco, appreciate Dr. Munoz's input. Pacemaker placement was discussed with patient and spouse , plan for insertion today if EF is WNL. 3. Bradycardia: he is known to have asymptomatic bradycardia episodes with dialysis. 4. Hypoglycemia: resolved, treated by primary care services 5. End stage renal disease: treated by primary care and Dr. Kang. He is on [facility] 6. History of hypothyroidism 7. Hyperlipidemia 8. Hypertension: per home medication list, he was on Hydralazine 50 mg PO TID, Amlodipine 10 mg PO daily, and Losartan 50 mg PO Daily, will re-start home Hydralazine and continue to monitor
[2020-04-29] MEDS: Melatonin 3 MG TAB PO PRN (20:59)
[2020-04-29] MEDS: Simvastatin 20 MG TAB PO SCH (21:01)
[2020-04-30 04:58] LABS: #Basophils 0.1 thou/uL (0.0-0.2); #Eosinphils 0.2 thou/uL (0.0-0.7); #Lymphocytes 1.4 thou/uL (1.20-3.40); #Monocytes 0.8 thou/uL (0.11-0.59); #Neutrophils 3.4 thou/uL (1.40-6.50); %Basophils 0.9 % (0.0-1.0); %Eosinophils 3.7 % (0.0-10.0); %Lymphocytes 23.5 % (21.0-51.0); %Monocytes 13.7 % (0.0-10.0); %Neutrophils 58.2 % (42.0-75.0); Hemoglobin 9.7 g/dL (14.0-18.0); Mean Corpuscular HGB CONC 33.5 g/dL (32.0-36.0); Mean Corpuscular Hemoglobin 33.6 pg (27.0-31.0); Mean Platelet Volume 8.8 fL (7.4-10.4); Platelet Count 99 thou/uL (130-400); RBC Distribution Width 12.9 % (11.5-14.5); White Blood Cell (WBC) Count 5.9 thou/uL (4.8-10.8)
[2020-04-30 05:11] LABS: Anion Gap 14 mmol/L (10-20); BUN (Urea Nitrogen) 23 mg/dL (8.4-25.7); Calc. Creatinine Clearance 14 mL/min (70-130); Calcium 9.1 mg/dL (7.8-10.44); Carbon Dioxide 28 mmol/L (23-31); Chloride 99 mmol/L (98-107); Glucose 107 mg/dL (83-110); Potassium 3.9 mmol/L (3.5-5.1); Sodium 137 mmol/L (136-145)
[2020-04-30] MEDS: Levothyroxine Sodium 50 MCG TAB PO SCH (05:40)
--- NOTE | 2020-04-30 08:43 | PRG ---
DATE OF SERVICE: 04/30/2020 SUBJECTIVE: Mr. Bonilla is an 85-year-old white male, followed up by the [facility] for management of his ESRD. He is currently undergoing maintenance hemodialysis on Monday, Monday, and Monday. He tolerated the said dialysis yesterday. In the interim, he had a pacemaker placed. He has no new complaints this morning. He has no chest pain or shortness of breath. OBJECTIVE: VITAL SIGNS: Blood pressure is noted at 139/64 with heart rate of 80, and O2 saturation 97%. GENERAL: Awake, alert, comfortable, not in distress. SKIN: Adequate turgor. HEENT: He has a slightly pale conjunctivae. Anicteric sclerae. NECK: No neck mass. No carotid bruits. No JVD. CHEST: No deformities. LUNGS: Clear breath sounds. No wheezing. No crackles. HEART: Normal sinus rhythm. No murmur. No gallops. No rubs. ABDOMEN: Globular, soft, and nontender. No masses. EXTREMITIES: No edema. No deformities. MEDICATIONS: Of April 30, 2020, reviewed. LABORATORY DATA: Laboratories of April 30, 2020; white count 5.9, hemoglobin 9.7, hematocrit 29.1. Sodium 137, potassium 3.9, chloride 99, carbon dioxide 28, BUN 23, creatinine 4.86, and calcium 9.1. ASSESSMENT AND PLAN: 1. End-stage renal disease, stable. We will continue current Monday, Monday, and Monday hemodialysis. No indication for any emergent dialysis with this patient. He looks euvolemic. His potassium is 3.9. 2. Borderline anemia - on weekly Epogen. Continue current medications. 3. High-grade atrioventricular block - the patient is status post pacemaker placement. Doing well. Job ID: [id number]
[2020-04-30] MEDS: Famotidine 20 MG TAB PO SCH (09:18)
[2020-04-30] MEDS: Ascorbic Acid 500 mg Chewable Tablet PO SCH (09:18)
[2020-04-30] MEDS: Losartan 25 MG TAB PO SCH (09:18)
[2020-04-30] MEDS: Pregabalin 75 MG CAP PO SCH (09:18)
[2020-04-30] MEDS: Amlodipine 5 MG TAB PO SCH (09:19)
[2020-04-30] MEDS: Minoxidil 2.5 MG TAB PO SCH (09:19)
[2020-04-30] MEDS: hydrALAZINE 25 MG TAB PO SCH (09:20)
[2020-04-30] MEDS: Stress 600 With Zinc 1 TAB PO SCH ×2 (09:28→09:29)
[2020-04-30] MEDS: Acetaminophen 325 MG TAB PO PRN (09:35)
--- NOTE | 2020-04-30 10:31 | PDOC.DS.DS ---
Provider Date of Admission: 04/26/20 14:55 Date of Discharge: 04/30/20 Admitting Provider: Kashif Gutierrez MD Consultations: Cardiology, Nephrology Primary Care Physician: Osmany Enamorado MD Course Hospital Course: Patient is a 85-year-old male with a past medical history of ESRD on hemodialysis and hypertension. He was brought in by EMS following an episode of altered mental status. He was hypoglycemic on site with blood glucose of 44. Patient apparently takes glipizide. His mental status returned to normal limits after normalization of his blood sugar. He underwent hemodialysis while in- house. His hospital course was complicated by high grade heart block, which could not be explained after review of meds and labs. Pacemaker was placed on 04/29/2020. He tolerated the procedure well. Lab Results: 04/30/20 04:19 04/30/20 04:19 Abnormal Lab Results - Last 48 hrs 04/30/20 04:19: Creatinine 4.86 H 04/30/20 04:19: RBC 2.90 L, Hgb 9.7 L, Hct 29.1 L, MCV 100.0 H, MCH 33.6 H, Plt Count 99 L, Monocytes % 13.7 H, Monocytes # 0.8 H Vitals: Vital Signs (12 hours) Temp Pulse Resp BP Pulse Ox 04/30/20 09:20 80 04/30/20 09:19 80 04/30/20 08:00 98.2 F 72 17 115/60 93 L 04/30/20 07:33 97 04/30/20 01:41 97 Weight Admit Weight 198 lb Weight 198 lb Physical Exam: The patient was seen and examined on the day of discharge. General Appearance: NAD, awake alert Eye: anicteric sclera ENT: normocephalic atraumatic Respiratory: CTAB, no wheezes, no ronchi Cardiovascular: RRR, no murmur Cardiovascular - other findings: Left sided pacemaker in place Gastrointestinal: soft, non-tender, non-distended Extremities: no clubbing, no edema Neurological: cranial nerve grossly intact PSYCH: normal affect, normal behavior Problem (1) Acute metabolic encephalopathy Code(s): G93.41 - METABOLIC ENCEPHALOPATHY Status: Acute (2) Hypoglycemia Code(s): E16.2 - HYPOGLYCEMIA, UNSPECIFIED Status: Acute (3) End stage renal disease on dialysis Code(s): N18.6 - END STAGE RENAL DISEASE; Z99.2 - DEPENDENCE ON RENAL DIALYSIS Status: Acute (4) Renal cell carcinoma of right kidney Code(s): C64.1 - MALIGNANT NEOPLASM OF RIGHT KIDNEY, EXCEPT RENAL PELVIS Status: Acute Plan Prescriptions: Melatonin 3 mg PO HS PRN #30 tab PRN Reason: Insomnia Home Medications: Medication Instructions Recorded Confirmed Type Allopurinol 100 mg PO DAILY 01/20/20 04/28/20 History Amlodipine Besylate [amLODIPine 10 mg PO DAILY 01/20/20 04/28/20 History Besylate] Ascorbic Acid [Vitamin C] 500 mg PO DAILY 01/20/20 04/28/20 History Levothyroxine Sodium [Synthroid] 50 mcg PO DAILY 01/20/20 04/28/20 History Pregabalin [Lyrica] 75 mg PO DAILY 01/20/20 04/28/20 History Simvastatin [Zocor] 20 mg PO HS 01/20/20 04/28/20 History Vitamin B Complex [Super B-50 1 cap PO DAILY 01/20/20 04/28/20 History Complex] hydrALAZINE HCl [Hydralazine HCl] 100 mg PO TID 01/20/20 04/28/20 History Losartan [Cozaar] 50 mg PO DAILY #30 tab 01/27/20 04/28/20 Rx Minoxidil 5 mg PO DAILY 04/28/20 04/28/20 History Amlodipine [Norvasc] 5 mg PO DAILY tab 04/30/20 Rx Epoetin Geraldo-Epbx [Retacrit] 7,500 unit SC Q7D vial 04/30/20 Rx Famotidine [Pepcid] 20 mg PO DAILY tab 04/30/20 Rx Melatonin 3 mg PO HS PRN #30 tab 04/30/20 Rx Sennosides/Docusate Sodium 2 tab PO BIDPRN PRN tab 04/30/20 Rx [Senokot S] Allergies: JUAN ANTONIO Inhibitors Allergy (Verified 01/20/20 16:15) Referrals: Osmany Enamorado MD [Primary Care Provider] - Disposition: HOME Quality CORE MEASURES:: N/A
[2020-04-30 13:13] VITALS: BP 124/62; TEMP 98
== END 2020-04-30 13:40 | disposition home or self-care (01) | DRG 981 ==
LOC: ERS 10:09 → 2NO 14:55
PROVIDERS: ADMIT Internal Medicine; ATTEND Internal Medicine
PROC: 5A1D70Z Performance of Urinary Filtration, Intermittent, Less than 6 Hours Per Day (ICD-10-PCS; 2020-04-27)
PROC: 0JH606Z Insertion of Pacemaker, Dual Chamber into Chest Subcutaneous Tissue and Fascia, Open Approach (ICD-10-PCS; principal; 2020-04-29)
PROC: 02HK3JZ Insertion of Pacemaker Lead into Right Ventricle, Percutaneous Approach (ICD-10-PCS; 2020-04-29)
PROC: 02H63JZ Insertion of Pacemaker Lead into Right Atrium, Percutaneous Approach (ICD-10-PCS; 2020-04-29)
DX: E11.649 Type 2 diabetes mellitus with hypoglycemia without coma (principal); G93.41 Metabolic encephalopathy; I12.0 Hypertensive chronic kidney disease with stage 5 chronic kidney disease or end stage renal disease; G81.91 Hemiplegia, unspecified affecting right dominant side; R47.01 Aphasia; R00.1 Bradycardia, unspecified; Z20.822 Contact with and (suspected) exposure to COVID-19; N18.6 End stage renal disease; E03.9 Hypothyroidism, unspecified; F17.210 Nicotine dependence, cigarettes, uncomplicated; E78.5 Hyperlipidemia, unspecified; E11.40 Type 2 diabetes mellitus with diabetic neuropathy, unspecified; E83.39 Other disorders of phosphorus metabolism; M19.90 Unspecified osteoarthritis, unspecified site; L29.9 Pruritus, unspecified; I44.1 Atrioventricular block, second degree; D63.1 Anemia in chronic kidney disease; E11.22 Type 2 diabetes mellitus with diabetic chronic kidney disease; Z85.528 Personal history of other malignant neoplasm of kidney; Z88.8 Allergy status to other drugs, medicaments and biological substances; Z79.890 Hormone replacement therapy; Z79.899 Other long term (current) drug therapy; Z79.84 Long term (current) use of oral hypoglycemic drugs; Z99.2 Dependence on renal dialysis
CPT/HCPCS: 33208; 36415; 36416; 71045; 75820; 80048; 80053; 82533; 82553; 83036; 84443; 84484; 85025; 87635; 90935; 93005; 93010; 93306; 96374; 97139; 99152; C1785; C1898; G0257; J0690; J1580; J2250; Q5105; Q9967; U0003; U0005

== ENCOUNTER 2021-07-20 09:44 | Inpatient (IN) | payer MEDICARE, OTHER ==
[2021-07-20 10:41] LABS: #Basophils 0.1 thou/uL (0.0-0.2); #Eosinphils 0.2 thou/uL (0.0-0.7); #Lymphocytes 1.1 thou/uL (1.20-3.40); #Monocytes 0.6 thou/uL (0.11-0.59); #Neutrophils 3.6 thou/uL (1.40-6.50); %Basophils 1.2 % (0.0-1.0); %Lymphocytes 19.4 % (21.0-51.0); %Monocytes 10.9 % (0.0-10.0); %Neutrophils 64.5 % (42.0-75.0); Hemoglobin 10.6 g/dL (14.0-18.0); MDiff Complete? YES; Mean Corpuscular HGB CONC 33.1 g/dL (32.0-36.0); Mean Corpuscular Hemoglobin 34.9 pg (27.0-31.0); Mean Platelet Volume 2.9 fL (7.4-10.4); Platelet Count 118 thou/uL (130-400); Platelet Morphology Comment Appears Decreased; Polychromasia SLIGHT = 2-3 cells (100X) (0-2/hpf); Red Blood Cell (RBC) Count 3.02 mill/uL (4.70-6.10); White Blood Cell (WBC) Count 5.6 thou/uL (4.8-10.8)
[2021-07-20 11:05] LABS: CKMB 1.8 ng/mL (0-6.6)
[2021-07-20 11:57] LABS: ALT (SGPT) Less than 7 U/L (8-55); AST (SGOT) 13 U/L (5-34); Alkaline Phosphatase 92 U/L (40-110); Anion Gap 14 mmol/L (10-20); BUN (Urea Nitrogen) 25 mg/dL (8.4-25.7); Bilirubin, Total 1.1 mg/dL (0.2-1.2); Calc. Creatinine Clearance 0 mL/min (70-130); Carbon Dioxide 34 mmol/L (23-31); Chloride 98 mmol/L (98-107); Globulin 2.4 g/dL (2.4-3.5); Glucose 116 mg/dL (83-110); Potassium 3.9 mmol/L (3.5-5.1); Protein, Total 6.4 g/dL (5.8-8.1); Sodium 142 mmol/L (136-145)
[2021-07-20] MEDS ORDERED: Acetaminophen 325 MG TAB PO PRN (12:36)
[2021-07-20] MEDS ORDERED: Ondansetron PF 4 MG/2 ML Vial IVP PRN (12:36)
[2021-07-20] MEDS ORDERED: Ondansetron ODT 4 MG TAB PO PRN (12:36)
[2021-07-20] MEDS ORDERED: Iopamidol-370 76% 500 ML 1 ML ONE (15:16)
[2021-07-20 15:50] LABS: Troponin I 0.041 ng/mL (< 0.028)
[2021-07-20] MEDS ORDERED: Epoetin (ESRD) 10,000 UNITS/ML VIAL SC SCH (17:15)
[2021-07-20 17:18] VITALS: BMI 25.9
[2021-07-20] MEDS: Heparin 5,000 UNITS/ML VIAL SC SCH ×2 (17:31→21:27)
[2021-07-20 19:37] LABS: Troponin I 0.044 ng/mL (< 0.028)
[2021-07-20 19:50] LABS: SARS-CoV-2 NAA Rapid Test Not Detected (NotDetected)
[2021-07-20] MEDS ORDERED: Simvastatin 20 MG TAB PO SCH (21:00)
[2021-07-20] MEDS: cloNIDine 0.2 MG TAB PO SCH (21:23)
[2021-07-20] MEDS: hydrOXYzine 25 MG TAB PO SCH (21:24)
[2021-07-20] MEDS: hydrALAZINE 25 MG TAB PO SCH (21:24)
[2021-07-20] MEDS: traMADol HCl 50 MG TAB PO SCH (21:25)
[2021-07-20] MEDS: Zolpidem Tartrate 5 MG TAB PO SCH ×2 (21:26→22:35)
[2021-07-21] MEDS ORDERED: Labetalol HCl 100 MG/20 ML VIAL SLOW IVP PRN (02:49)
[2021-07-21 04:42] LABS: #Eosinphils 0.2 thou/uL (0.0-0.7); #Lymphocytes 1.2 thou/uL (1.20-3.40); #Monocytes 0.7 thou/uL (0.11-0.59); #Neutrophils 4.3 thou/uL (1.40-6.50); %Basophils 0.6 % (0.0-1.0); %Eosinophils 2.9 % (0.0-10.0); %Monocytes 11.5 % (0.0-10.0); Hemoglobin 10.7 g/dL (14.0-18.0); Mean Corpuscular Hemoglobin 34.7 pg (27.0-31.0); Mean Platelet Volume 8.3 fL (7.4-10.4); Platelet Count 112 thou/uL (130-400); RBC Distribution Width 15.1 % (11.5-14.5); Red Blood Cell (RBC) Count 3.09 mill/uL (4.70-6.10); White Blood Cell (WBC) Count 6.5 thou/uL (4.8-10.8)
[2021-07-21 04:56] LABS: Anion Gap 14 mmol/L (10-20); BUN (Urea Nitrogen) 17 mg/dL (8.4-25.7); Calc. Creatinine Clearance 17 mL/min (70-130); Calcium 9.4 mg/dL (7.8-10.44); Carbon Dioxide 31 mmol/L (23-31); Chloride 97 mmol/L (98-107); Glucose 100 mg/dL (83-110); Potassium 3.8 mmol/L (3.5-5.1); Sodium 138 mmol/L (136-145)
[2021-07-21] MEDS: Levothyroxine Sodium 50 MCG TAB PO SCH (07:00)
[2021-07-21] MEDS: Heparin 5,000 UNITS/ML VIAL SC SCH ×3 (08:52→21:28)
[2021-07-21] MEDS ORDERED: Sucroferric Oxyhydroxide (Velphoro) 500 MG Tab.Chew PO SCH (09:00)
[2021-07-21] MEDS: Amlodipine 10 MG TAB PO SCH (11:03)
[2021-07-21] MEDS: Pregabalin 75 MG CAP PO SCH (11:03)
[2021-07-21] MEDS: Allopurinol 100 MG TAB PO SCH (11:03)
[2021-07-21] MEDS: cloNIDine 0.2 MG TAB PO SCH ×3 (11:04→21:27)
[2021-07-21] MEDS: hydrALAZINE 25 MG TAB PO SCH ×3 (11:05→21:27)
[2021-07-21] MEDS: traMADol HCl 50 MG TAB PO SCH ×2 (11:05→21:27)
[2021-07-21] MEDS: Losartan 25 MG TAB PO SCH (11:06)
[2021-07-21] MEDS: Minoxidil 2.5 MG TAB PO SCH (11:06)
[2021-07-21] MEDS: Atorvastatin Calcium 10 MG TAB PO SCH (21:27)
[2021-07-21] MEDS: hydrOXYzine 25 MG TAB PO SCH (21:27)
[2021-07-21] MEDS: Zolpidem Tartrate 5 MG TAB PO SCH (23:35)
[2021-07-22 05:26] LABS: Anion Gap 11 mmol/L (10-20); BUN (Urea Nitrogen) 13 mg/dL (8.4-25.7); Calc. Creatinine Clearance 18 mL/min (70-130); Calcium 9.1 mg/dL (7.8-10.44); Carbon Dioxide 33 mmol/L (23-31); Chloride 98 mmol/L (98-107); Glucose 95 mg/dL (83-110); Potassium 3.9 mmol/L (3.5-5.1); Sodium 138 mmol/L (136-145)
[2021-07-22 05:43] LABS: #Eosinphils 0.2 thou/uL (0.0-0.7); #Monocytes 0.6 thou/uL (0.11-0.59); %Eosinophils 3.6 % (0.0-10.0); %Lymphocytes 20.7 % (21.0-51.0); %Monocytes 13.1 % (0.0-10.0); %Neutrophils 61.7 % (42.0-75.0); Hemoglobin 9.7 g/dL (14.0-18.0); MDiff Complete? YES; Macrocytosis SLIGHT = 6-15 cells (100X) (0-5/hpf); Mean Corpuscular HGB CONC 31.2 g/dL (32.0-36.0); Mean Corpuscular Hemoglobin 33.9 pg (27.0-31.0); Mean Platelet Volume 8.2 fL (7.4-10.4); Platelet Count 99 thou/uL (130-400); Platelet Morphology Comment Appears Decreased; RBC Distribution Width 14.8 % (11.5-14.5); Red Blood Cell (RBC) Count 2.85 mill/uL (4.70-6.10); White Blood Cell (WBC) Count 4.9 thou/uL (4.8-10.8)
[2021-07-22] MEDS: Levothyroxine Sodium 50 MCG TAB PO SCH (06:14)
[2021-07-22] MEDS: Heparin 5,000 UNITS/ML VIAL SC SCH ×3 (06:14→20:11)
[2021-07-22] MEDS: Losartan 25 MG TAB PO SCH (10:01)
[2021-07-22] MEDS: Amlodipine 10 MG TAB PO SCH (10:01)
[2021-07-22] MEDS: Allopurinol 100 MG TAB PO SCH (10:01)
[2021-07-22] MEDS: hydrALAZINE 25 MG TAB PO SCH ×3 (10:01→20:11)
[2021-07-22] MEDS: Folic Acid/Vit B Comp W-C PO SCH (10:01)
[2021-07-22] MEDS: cloNIDine 0.2 MG TAB PO SCH ×3 (10:01→20:13)
[2021-07-22] MEDS: Pregabalin 75 MG CAP PO SCH (10:02)
[2021-07-22] MEDS: Minoxidil 2.5 MG TAB PO SCH (10:02)
[2021-07-22] MEDS: traMADol HCl 50 MG TAB PO SCH ×2 (10:02→20:12)
[2021-07-22] MEDS: hydrOXYzine 25 MG TAB PO SCH (20:12)
[2021-07-22] MEDS: Atorvastatin Calcium 10 MG TAB PO SCH (20:13)
[2021-07-22] MEDS: Zolpidem Tartrate 5 MG TAB PO SCH (20:13)
[2021-07-23] MEDS: Levothyroxine Sodium 50 MCG TAB PO SCH (05:17)
[2021-07-23] MEDS: Heparin 5,000 UNITS/ML VIAL SC SCH ×2 (05:17→13:36)
[2021-07-23 07:53] VITALS: BP 134/63; TEMP 97.8
[2021-07-23] MEDS: traMADol HCl 50 MG TAB PO SCH (13:03)
[2021-07-23] MEDS: hydrALAZINE 25 MG TAB PO SCH ×2 (13:03→13:36)
[2021-07-23] MEDS: cloNIDine 0.2 MG TAB PO SCH ×2 (13:03→13:36)
[2021-07-23] MEDS: Amlodipine 10 MG TAB PO SCH (13:35)
[2021-07-23] MEDS: Allopurinol 100 MG TAB PO SCH (13:35)
[2021-07-23] MEDS: Losartan 25 MG TAB PO SCH (13:36)
[2021-07-23] MEDS: Minoxidil 2.5 MG TAB PO SCH (13:36)
[2021-07-23] MEDS: Folic Acid/Vit B Comp W-C PO SCH (13:36)
[2021-07-23] MEDS: Pregabalin 75 MG CAP PO SCH (13:36)
== END 2021-07-23 15:10 | disposition home health service (06) | DRG 291 ==
LOC: ERS 09:44 → 2NO 12:06
PROVIDERS: ADMIT Internal Medicine; ATTEND Internal Medicine
PROC: 5A1D70Z Performance of Urinary Filtration, Intermittent, Less than 6 Hours Per Day (ICD-10-PCS; principal; 2021-07-20)
DX: I13.2 Hypertensive heart and chronic kidney disease with heart failure and with stage 5 chronic kidney disease, or end stage renal disease (principal); I50.33 Acute on chronic diastolic (congestive) heart failure; N18.6 End stage renal disease; J96.01 Acute respiratory failure with hypoxia; Z20.822 Contact with and (suspected) exposure to COVID-19; E03.9 Hypothyroidism, unspecified; E78.5 Hyperlipidemia, unspecified; F32.A Depression, unspecified; G47.00 Insomnia, unspecified; D69.6 Thrombocytopenia, unspecified; D63.1 Anemia in chronic kidney disease; M10.9 Gout, unspecified; E11.65 Type 2 diabetes mellitus with hyperglycemia; R77.8 Other specified abnormalities of plasma proteins; I49.5 Sick sinus syndrome; I08.3 Combined rheumatic disorders of mitral, aortic and tricuspid valves; E11.40 Type 2 diabetes mellitus with diabetic neuropathy, unspecified; Z95.0 Presence of cardiac pacemaker; Z99.2 Dependence on renal dialysis; Z88.8 Allergy status to other drugs, medicaments and biological substances; Z79.899 Other long term (current) drug therapy; Z79.890 Hormone replacement therapy; Z85.528 Personal history of other malignant neoplasm of kidney
CPT/HCPCS: 36415; 71045; 71275; 80048; 80053; 82553; 82607; 82746; 83880; 84484; 85025; 90935; 93005; 93306; 93798; 94760; G0257; Q4081; Q9967

== ENCOUNTER 2021-08-16 16:40 | Observation (INO) | payer MEDICARE, OTHER ==
[2021-08-16 17:38] LABS: #Eosinphils 0.3 thou/uL (0.0-0.7); #Lymphocytes 0.8 thou/uL (1.20-3.40); #Monocytes 0.7 thou/uL (0.11-0.59); #Neutrophils 4.4 thou/uL (1.40-6.50); %Basophils 0.3 % (0.0-1.0); %Eosinophils 5.1 % (0.0-10.0); %Lymphocytes 13.2 % (21.0-51.0); %Monocytes 10.6 % (0.0-10.0); %Neutrophils 70.8 % (42.0-75.0); Hemoglobin 11.8 g/dL (14.0-18.0); Mean Corpuscular HGB CONC 32.5 g/dL (32.0-36.0); Mean Corpuscular Hemoglobin 35.8 pg (27.0-31.0); Mean Platelet Volume 8.9 fL (7.4-10.4); Platelet Count 86 thou/uL (130-400); RBC Distribution Width 14.3 % (11.5-14.5); Red Blood Cell (RBC) Count 3.28 mill/uL (4.70-6.10); White Blood Cell (WBC) Count 6.2 thou/uL (4.8-10.8)
[2021-08-16 17:54] LABS: ALT (SGPT) Less than 7 U/L (8-55); AST (SGOT) 15 U/L (5-34); Alkaline Phosphatase 90 U/L (40-110); Anion Gap 19 mmol/L (10-20); BUN (Urea Nitrogen) 42 mg/dL (8.4-25.7); Calc. Creatinine Clearance 0 mL/min (70-130); Calcium 8.8 mg/dL (7.8-10.44); Carbon Dioxide 24 mmol/L (23-31); Chloride 98 mmol/L (98-107); Globulin 2.5 g/dL (2.4-3.5); Glucose 100 mg/dL (83-110); Potassium 4.6 mmol/L (3.5-5.1); Protein, Total 6.5 g/dL (5.8-8.1); Sodium 136 mmol/L (136-145)
[2021-08-16 18:16] LABS: CKMB 2.2 ng/mL (0-6.6)
[2021-08-16] MEDS ORDERED: Ondansetron PF 4 MG/2 ML Vial IVP PRN (20:11)
[2021-08-16] MEDS ORDERED: HYDROcodone/Acetaminophen 5/325 mg Tablet PO PRN (20:11)
[2021-08-16] MEDS ORDERED: Zolpidem Tartrate 5 MG TAB PO PRN (20:11)
[2021-08-16] MEDS ORDERED: Acetaminophen 325 MG TAB PO PRN (20:11)
[2021-08-16] MEDS ORDERED: cloNIDine 0.1 MG TAB PO SCH (21:00)
[2021-08-16] MEDS ORDERED: hydrOXYzine 25 MG TAB PO PRN (21:00)
[2021-08-16 21:03] LABS: Magnesium 2.1 mg/dL (1.6-2.6)
[2021-08-16 23:01] VITALS: BMI 22.9
[2021-08-16] MEDS: Heparin 5,000 UNITS/ML VIAL SC SCH (23:42)
[2021-08-17 04:59] LABS: #Eosinphils 0.3 thou/uL (0.0-0.7); #Monocytes 0.7 thou/uL (0.11-0.59); #Neutrophils 3.5 thou/uL (1.40-6.50); %Basophils 0.4 % (0.0-1.0); %Eosinophils 5.3 % (0.0-10.0); %Lymphocytes 17.8 % (21.0-51.0); %Monocytes 12.6 % (0.0-10.0); %Neutrophils 63.9 % (42.0-75.0); Mean Corpuscular HGB CONC 32.5 g/dL (32.0-36.0); Mean Corpuscular Hemoglobin 35.9 pg (27.0-31.0); Mean Platelet Volume 7.9 fL (7.4-10.4); Platelet Count 81 thou/uL (130-400); RBC Distribution Width 14.3 % (11.5-14.5); Red Blood Cell (RBC) Count 3.06 mill/uL (4.70-6.10); White Blood Cell (WBC) Count 5.5 thou/uL (4.8-10.8)
[2021-08-17 05:17] LABS: Troponin I 0.033 ng/mL (< 0.028)
[2021-08-17] MEDS: Levothyroxine Sodium 50 MCG TAB PO SCH (05:40)
[2021-08-17 06:29] LABS: Albumin 3.6 g/dL (3.4-4.8); Anion Gap 20 mmol/L (10-20); BUN (Urea Nitrogen) 47 mg/dL (8.4-25.7); BUN/Creatinine Ratio 6.65; Calc. Creatinine Clearance 8 mL/min (70-130); Calcium 8.7 mg/dL (7.8-10.44); Carbon Dioxide 24 mmol/L (23-31); Chloride 96 mmol/L (98-107); Glucose 140 mg/dL (83-110); Phosphorus 5.7 mg/dL (2.3-4.7); Potassium 4.9 mmol/L (3.5-5.1); Sodium 135 mmol/L (136-145)
[2021-08-17] MEDS ORDERED: Sucroferric Oxyhydroxide (Velphoro) 500 MG Tab.Chew PO SCH (09:00)
[2021-08-17] MEDS ORDERED: Minoxidil 2.5 MG TAB PO SCH (09:00)
[2021-08-17] MEDS: Amlodipine 10 MG TAB PO SCH (09:55)
[2021-08-17] MEDS: Heparin 5,000 UNITS/ML VIAL SC SCH ×2 (09:55→21:28)
[2021-08-17] MEDS: cloNIDine 0.1 MG TAB PO SCH ×2 (09:55→21:30)
[2021-08-17] MEDS: hydrALAZINE 25 MG TAB PO SCH ×3 (09:56→21:29)
[2021-08-17] MEDS: Allopurinol 100 MG TAB PO SCH (09:56)
[2021-08-17] MEDS: Pregabalin 75 MG CAP PO SCH (09:56)
[2021-08-17] MEDS: Losartan 25 MG TAB PO SCH (09:56)
[2021-08-17] MEDS ORDERED: Zolpidem Tartrate 5 MG TAB PO SCH (21:00)
[2021-08-17] MEDS ORDERED: Atorvastatin Calcium 10 MG TAB PO SCH (21:00)
[2021-08-18] MEDS: Levothyroxine Sodium 50 MCG TAB PO SCH (05:48)
[2021-08-18] MEDS ORDERED: Folic Acid/Vit B Comp W-C PO SCH (09:00)
[2021-08-18] MEDS: hydrALAZINE 25 MG TAB PO SCH ×2 (09:38→16:20)
[2021-08-18] MEDS: Heparin 5,000 UNITS/ML VIAL SC SCH (09:38)
[2021-08-18] MEDS: cloNIDine 0.1 MG TAB PO SCH (09:38)
[2021-08-18] MEDS: Amlodipine 10 MG TAB PO SCH (16:19)
[2021-08-18] MEDS: Allopurinol 100 MG TAB PO SCH (16:19)
[2021-08-18] MEDS: Losartan 25 MG TAB PO SCH (16:20)
[2021-08-18] MEDS: Pregabalin 75 MG CAP PO SCH (16:20)
[2021-08-18 16:27] VITALS: BP 155/67; TEMP 98
== END 2021-08-18 16:45 | disposition home or self-care (01) ==
LOC: ERS 16:40 → 2NO 19:32
PROVIDERS: ADMIT Internal Medicine; ATTEND Internal Medicine
DX: I95.9 Hypotension, unspecified (principal); I13.2 Hypertensive heart and chronic kidney disease with heart failure and with stage 5 chronic kidney disease, or end stage renal disease; N18.6 End stage renal disease; I50.9 Heart failure, unspecified; I44.0 Atrioventricular block, first degree; R00.1 Bradycardia, unspecified; E78.5 Hyperlipidemia, unspecified; R77.8 Other specified abnormalities of plasma proteins; U07.1 COVID-19; E03.9 Hypothyroidism, unspecified; E83.39 Other disorders of phosphorus metabolism; F17.220 Nicotine dependence, chewing tobacco, uncomplicated; Z79.890 Hormone replacement therapy; Z79.899 Other long term (current) drug therapy; Z88.8 Allergy status to other drugs, medicaments and biological substances; Z95.0 Presence of cardiac pacemaker; Z90.5 Acquired absence of kidney; Z99.2 Dependence on renal dialysis
CPT/HCPCS: 71045; 80069; 82553; 83735; 83880; 84484 ×2; 85025; 93005; 99285; G0378 ×4; U0003; U0005; 36415; 80053; 84443; 90935; G0257

== ENCOUNTER 2021-10-08 18:47 | Emergency (ER) | payer OTHER, MEDICARE | END 2021-10-08 20:30 | disposition home or self-care (01) | LOC: ERS 18:47 | DX: S09.90XA Unspecified injury of head, initial encounter (principal); S82.001A Unspecified fracture of right patella, initial encounter for closed fracture; E03.9 Hypothyroidism, unspecified; I10 Essential (primary) hypertension; F17.220 Nicotine dependence, chewing tobacco, uncomplicated; W01.0XXA Fall on same level from slipping, tripping and stumbling without subsequent striking against object, initial encounter | CPT/HCPCS: 70450 ==

== ENCOUNTER 2023-12-06 09:35 | Inpatient (IN) | payer MEDICARE, OTHER ==
[2023-12-06] MEDS ORDERED: HYDROcodone/Acetaminophen 5/325 mg Tablet ONE (13:25)
[2023-12-06 14:33] LABS: #Basophils 0.04 10x3/uL (0.0-0.2); %Basophils 0.6 % (0.0-1.0); %Eosinophils 2.9 % (0.0-10.0); %Lymphocytes 15.8 % (21.0-51.0); %Monocytes 9.1 % (0.0-10.0); %Neutrophils 71.3 % (42.0-75.0); Hematocrit 28.7 % (42.0-52.0); Hemoglobin 9.2 g/dL (14.0-18.0); Mean Corpuscular HGB CONC 32.1 g/dL (32.0-36.0); Mean Corpuscular Hemoglobin 35.4 pg (27.0-31.0); Mean Corpuscular Volume 110.4 fL (78.0-98.0); Platelet Count 152 10x3/uL (130-400); RBC Distribution Width 16.5 % (11.5-14.5)
[2023-12-06] MEDS ORDERED: Acetaminophen 325 MG TAB PO PRN (14:34)
[2023-12-06] MEDS ORDERED: Senokot S 8.6-50 MG TAB PO PRN (14:34)
[2023-12-06] MEDS ORDERED: Ondansetron ODT 4 MG TAB PO PRN (14:34)
[2023-12-06 14:47] LABS: Anion Gap 18 mmol/L (10-20); BUN (Urea Nitrogen) 33 mg/dL (8.4-25.7); Calc. Creatinine Clearance 0 mL/min (70-130); Calcium 10.2 mg/dL (7.8-10.44); Carbon Dioxide 28 mmol/L (23-31); Chloride 98 mmol/L (98-107); Estimated GFR 8; Glucose 102 mg/dL (83-110); Potassium 4.2 mmol/L (3.5-5.1); Sodium 140 mmol/L (136-145)
[2023-12-06 14:49] LABS: Troponin I 0.095 ng/mL (< 0.028)
[2023-12-06] MEDS ORDERED: hydrALAZINE 20 MG/ML VIAL ONE (15:43)
[2023-12-06] MEDS ORDERED: Heparin 5,000 UNITS/ML VIAL ONE (15:44)
[2023-12-06] MEDS ORDERED: Ibuprofen 200 MG TAB ONE (15:44)
[2023-12-06] MEDS: Heparin 5,000 UNITS/ML VIAL SC SCH (15:47)
[2023-12-06] MEDS: Ibuprofen 200 MG TAB PO SCH (15:48)
[2023-12-06] MEDS: hydrALAZINE 20 MG/ML VIAL SLOW IVP PRN (15:49)
[2023-12-06 16:35] LABS: HBSAB Concentration Less than 8.00 mIU/mL; HBsAg Index 0.29 S/CO (0-0.99); Hep B Core Total Ab NONREACTIVE (NonReactive); Hep B Core Total Index 0.05 S/CO (0-0.79); Hep B Surf AB NONREACTIVE (NonReactive); Hep B Surf Ag NONREACTIVE S/CO (NonReactive); Hep C IgG Ab NONREACTIVE S/CO (NonReactive); Hep C Index 0.05 S/CO (0-0.79)
[2023-12-06 21:25] VITALS: BMI 22.1
[2023-12-06] MEDS: Famotidine 20 MG TAB PO SCH (21:32)
[2023-12-07 06:41] LABS: #Basophils 0.03 10x3/uL (0.0-0.2); %Basophils 0.5 % (0.0-1.0); %Eosinophils 4.4 % (0.0-10.0); %Lymphocytes 12.8 % (21.0-51.0); %Monocytes 10.4 % (0.0-10.0); %Neutrophils 71.7 % (42.0-75.0); Hematocrit 25.7 % (42.0-52.0); Mean Corpuscular HGB CONC 31.1 g/dL (32.0-36.0); Mean Corpuscular Hemoglobin 34.9 pg (27.0-31.0); Mean Corpuscular Volume 112.2 fL (78.0-98.0); Mean Platelet Volume 10.7 fL (7.4-10.4); Platelet Count 127 10x3/uL (130-400); RBC Distribution Width 16.5 % (11.5-14.5); Red Blood Cell (RBC) Count 2.29 mill/uL (4.70-6.10)
[2023-12-07 07:02] LABS: Anion Gap 11 mmol/L (10-20); BUN (Urea Nitrogen) 23 mg/dL (8.4-25.7); Calc. Creatinine Clearance 12 mL/min (70-130); Calcium 9.2 mg/dL (7.8-10.44); Carbon Dioxide 31 mmol/L (23-31); Chloride 103 mmol/L (98-107); Estimated GFR 12; Glucose 108 mg/dL (83-110); Potassium 4.1 mmol/L (3.5-5.1); Sodium 141 mmol/L (136-145)
[2023-12-07 07:16] LABS: Band 2 % (5-11); Eosinophils 4 % (0-10); Hypochromia SLIGHT = 6-15 cells HPF (0-5); Lymphocytes 14 % (21-51); Macrocytosis SLIGHT = 6-15 cells HPF (0-5); Monocytes 6 % (0-10); Neutrophil 73 % (42-75); Platelet Adequacy Comment Platelets Normal
[2023-12-07] MEDS: EPOETIN ALFA-EPBX (ESRD) 10,000 UNITS/ML VIAL SC SCH (14:12)
[2023-12-07] MEDS: Heparin 5,000 UNITS/ML VIAL SC SCH (14:56)
[2023-12-07] MEDS: Losartan 25 MG TAB PO SCH (17:13)
[2023-12-07] MEDS ORDERED: Apixaban 5 MG TAB PO SCH (21:00)
[2023-12-07] MEDS: Pregabalin 75 MG CAP PO SCH (21:06)
[2023-12-07] MEDS: Atorvastatin Calcium 10 MG TAB PO SCH (21:06)
[2023-12-08] MEDS: Levothyroxine Sodium 50 MCG TAB PO SCH (05:55)
[2023-12-08] MEDS: Allopurinol 100 MG TAB PO SCH (10:36)
[2023-12-08] MEDS: Losartan 25 MG TAB PO SCH (10:36)
[2023-12-09 05:54] LABS: #Basophils 0.03 10x3/uL (0.0-0.2); %Basophils 0.5 % (0.0-1.0); %Eosinophils 2.9 % (0.0-10.0); %Lymphocytes 14.5 % (21.0-51.0); %Monocytes 13.2 % (0.0-10.0); %Neutrophils 68.4 % (42.0-75.0); Hematocrit 24.2 % (42.0-52.0); Mean Corpuscular HGB CONC 33.1 g/dL (32.0-36.0); Mean Corpuscular Hemoglobin 34.6 pg (27.0-31.0); Mean Corpuscular Volume 104.8 fL (78.0-98.0); Mean Platelet Volume 11.1 fL (7.4-10.4); Platelet Count 114 10x3/uL (130-400); RBC Distribution Width 15.7 % (11.5-14.5); Red Blood Cell (RBC) Count 2.31 mill/uL (4.70-6.10)
[2023-12-09 06:03] LABS: Anion Gap 15 mmol/L (10-20); BUN (Urea Nitrogen) 32 mg/dL (8.4-25.7); Calc. Creatinine Clearance 10 mL/min (70-130); Calcium 10.1 mg/dL (7.8-10.44); Carbon Dioxide 26 mmol/L (23-31); Chloride 100 mmol/L (98-107); Estimated GFR 10; Glucose 102 mg/dL (83-110); Potassium 4.6 mmol/L (3.5-5.1); Sodium 136 mmol/L (136-145)
[2023-12-09] MEDS ORDERED: FLU (Fluad Triv) TS24-25 (65UP)/MF59C/PF 45 MCG/0.5 ML Syringe IM ONE (09:00)
[2023-12-09] MEDS: Lanthanum Carbonate 500 mg Chewable Tablet PO SCH (17:56)
[2023-12-09] MEDS: hydrALAZINE 25 MG TAB PO PRN (23:17)
[2023-12-10 06:15] LABS: #Basophils 0.04 10x3/uL (0.0-0.2); %Basophils 0.7 % (0.0-1.0); %Lymphocytes 19.9 % (21.0-51.0); %Monocytes 14.6 % (0.0-10.0); %Neutrophils 59.4 % (42.0-75.0); Hematocrit 25.1 % (42.0-52.0); Mean Corpuscular HGB CONC 31.9 g/dL (32.0-36.0); Mean Corpuscular Hemoglobin 34.5 pg (27.0-31.0); Mean Corpuscular Volume 108.2 fL (78.0-98.0); Mean Platelet Volume 11.2 fL (7.4-10.4); Platelet Count 129 10x3/uL (130-400); RBC Distribution Width 15.5 % (11.5-14.5); Red Blood Cell (RBC) Count 2.32 mill/uL (4.70-6.10)
[2023-12-10 06:31] LABS: Anion Gap 17 mmol/L (10-20); BUN (Urea Nitrogen) 45 mg/dL (8.4-25.7); Calc. Creatinine Clearance 8 mL/min (70-130); Calcium 10.4 mg/dL (7.8-10.44); Carbon Dioxide 25 mmol/L (23-31); Chloride 97 mmol/L (98-107); Estimated GFR 8; Glucose 90 mg/dL (83-110); Magnesium 2.2 mg/dL (1.6-2.6); Potassium 4.9 mmol/L (3.5-5.1); Sodium 134 mmol/L (136-145)
[2023-12-10] MEDS ORDERED: Lanthanum Carbonate 500 mg Chewable Tablet PO SCH (08:00)
[2023-12-10] MEDS: Lanthanum Carbonate 500 mg Chewable Tablet PO SCH (08:33)
[2023-12-10] MEDS: Cholecalciferol 1,000 UNITS (25 MCG) TAB PO SCH (08:33)
[2023-12-10] MEDS: Folic Acid/Vit B Comp W-C PO SCH (08:33)
[2023-12-11 04:55] LABS: Anion Gap 19 mmol/L (10-20); BUN (Urea Nitrogen) 57 mg/dL (8.4-25.7); Calc. Creatinine Clearance 7 mL/min (70-130); Carbon Dioxide 22 mmol/L (23-31); Chloride 98 mmol/L (98-107); Estimated GFR 7; Glucose 96 mg/dL (83-110); Magnesium 2.2 mg/dL (1.6-2.6); Potassium 5.6 mmol/L (3.5-5.1); Sodium 133 mmol/L (136-145)
[2023-12-11 04:57] LABS: #Basophils 0.05 10x3/uL (0.0-0.2); %Basophils 0.9 % (0.0-1.0); %Eosinophils 4.8 % (0.0-10.0); %Lymphocytes 14.7 % (21.0-51.0); %Monocytes 13.1 % (0.0-10.0); %Neutrophils 66.2 % (42.0-75.0); Hematocrit 25.8 % (42.0-52.0); Hemoglobin 8.1 g/dL (14.0-18.0); Mean Corpuscular HGB CONC 31.4 g/dL (32.0-36.0); Mean Corpuscular Hemoglobin 34.3 pg (27.0-31.0); Mean Corpuscular Volume 109.3 fL (78.0-98.0); Mean Platelet Volume 11.1 fL (7.4-10.4); Platelet Count 122 10x3/uL (130-400); RBC Distribution Width 15.5 % (11.5-14.5); Red Blood Cell (RBC) Count 2.36 mill/uL (4.70-6.10)
[2023-12-12 04:06] LABS: #Basophils 0.04 10x3/uL (0.0-0.2); %Basophils 0.8 % (0.0-1.0); %Lymphocytes 17.3 % (21.0-51.0); %Monocytes 12.2 % (0.0-10.0); %Neutrophils 65.3 % (42.0-75.0); Hematocrit 25.6 % (42.0-52.0); Hemoglobin 8.1 g/dL (14.0-18.0); Mean Corpuscular HGB CONC 31.6 g/dL (32.0-36.0); Mean Corpuscular Hemoglobin 34.5 pg (27.0-31.0); Mean Corpuscular Volume 108.9 fL (78.0-98.0); Mean Platelet Volume 10.2 fL (7.4-10.4); Platelet Count 128 10x3/uL (130-400); RBC Distribution Width 15.3 % (11.5-14.5); Red Blood Cell (RBC) Count 2.35 mill/uL (4.70-6.10)
[2023-12-12 04:42] LABS: Anion Gap 16 mmol/L (10-20); BUN (Urea Nitrogen) 36 mg/dL (8.4-25.7); Calc. Creatinine Clearance 9 mL/min (70-130); Calcium 10.2 mg/dL (7.8-10.44); Carbon Dioxide 29 mmol/L (23-31); Chloride 99 mmol/L (98-107); Estimated GFR 9; Glucose 92 mg/dL (83-110); Magnesium 2.1 mg/dL (1.6-2.6); Potassium 4.8 mmol/L (3.5-5.1); Sodium 139 mmol/L (136-145)
[2023-12-12 04:43] LABS: ALT (SGPT) 10 U/L (8-55); AST (SGOT) 16 U/L (5-34); Albumin 3.2 g/dL (3.4-4.8); Alkaline Phosphatase 78 U/L (40-110); Bilirubin, Direct 0.3 mg/dL (0.1-0.3); Bilirubin, Total 0.7 mg/dL (0.2-1.2); Protein, Total 6.3 g/dL (5.8-8.1)
[2023-12-12 05:12] LABS: Thyroid Stimulating Hormone 3.7835 uIU/mL (0.35-4.94)
[2023-12-12] MEDS: Cyanocobalamin (Vitamin B-12) 1,000 MCG TAB PO SCH (09:30)
[2023-12-12] MEDS: NIFEdipine XL 30 MG ER.TAB PO SCH (09:30)
[2023-12-12 23:53] VITALS: TEMP 97.1
[2023-12-13 05:53] LABS: #Basophils 0.03 10x3/uL (0.0-0.2); %Basophils 0.6 % (0.0-1.0); %Eosinophils 4.4 % (0.0-10.0); %Lymphocytes 22.5 % (21.0-51.0); %Monocytes 14.1 % (0.0-10.0); %Neutrophils 58.2 % (42.0-75.0); Hematocrit 27.4 % (42.0-52.0); Hemoglobin 8.5 g/dL (14.0-18.0); Mean Corpuscular Hemoglobin 33.6 pg (27.0-31.0); Mean Corpuscular Volume 108.3 fL (78.0-98.0); Mean Platelet Volume 10.6 fL (7.4-10.4); Platelet Count 146 10x3/uL (130-400); RBC Distribution Width 15.1 % (11.5-14.5); Red Blood Cell (RBC) Count 2.53 mill/uL (4.70-6.10)
[2023-12-13 06:10] LABS: Anion Gap 17 mmol/L (10-20); BUN (Urea Nitrogen) 49 mg/dL (8.4-25.7); Calc. Creatinine Clearance 8 mL/min (70-130); Calcium 10.8 mg/dL (7.8-10.44); Carbon Dioxide 28 mmol/L (23-31); Chloride 99 mmol/L (98-107); Estimated GFR 7; Glucose 100 mg/dL (83-110); Magnesium 2.3 mg/dL (1.6-2.6); Potassium 4.9 mmol/L (3.5-5.1); Sodium 139 mmol/L (136-145)
[2023-12-13 08:01] VITALS: BP 151/63
[2023-12-13 13:10] VITALS: BMI 22.1
== END 2023-12-13 16:15 | DRG 555 ==
LOC: ERS 09:35 → ERHOLD 14:01 → T4-A 17:48
PROVIDERS: ADMIT Family Medicine; ATTEND Internal Medicine
DX: M79.662 Pain in left lower leg (principal); G93.41 Metabolic encephalopathy; I50.43 Acute on chronic combined systolic (congestive) and diastolic (congestive) heart failure; J96.01 Acute respiratory failure with hypoxia; N18.6 End stage renal disease; I13.2 Hypertensive heart and chronic kidney disease with heart failure and with stage 5 chronic kidney disease, or end stage renal disease; R53.1 Weakness; E87.70 Fluid overload, unspecified; R53.81 Other malaise; D63.1 Anemia in chronic kidney disease; D69.6 Thrombocytopenia, unspecified; W01.0XXA Fall on same level from slipping, tripping and stumbling without subsequent striking against object, initial encounter; F32.A Depression, unspecified; G47.00 Insomnia, unspecified; E78.5 Hyperlipidemia, unspecified; F17.220 Nicotine dependence, chewing tobacco, uncomplicated; E03.9 Hypothyroidism, unspecified; Y93.89 Activity, other specified; Z95.0 Presence of cardiac pacemaker; Y92.89 Other specified places as the place of occurrence of the external cause; Z88.8 Allergy status to other drugs, medicaments and biological substances; Z99.2 Dependence on renal dialysis; Z85.53 Personal history of malignant neoplasm of renal pelvis; Z90.5 Acquired absence of kidney; Z79.899 Other long term (current) drug therapy; Z79.890 Hormone replacement therapy; R62.7 Adult failure to thrive
CPT/HCPCS: 36415; 70450; 70551; 71045; 72125; 72128; 72131; 72170; 80048; 80076; 82140; 82607; 83735; 84443; 84484; 85025; 86704; 86706; 86803; 87340; 90935; 93005; 93306; G0257; J0360; J1644